=== PATIENT | female | born 1940 | race Caucasian/White ===

== ENCOUNTER → 2017-07-13 17:09 | Outpatient (CLI) | payer MEDICARE, SELFPAY ==
--- NOTE | 2017-07-13 17:30 | RAD_ITS ---
STUDY: X-RAY - ABDOMEN/PELVIS REASON FOR EXAM: Female, 77 years old. TECHNIQUE: 4 views COMPARISON: None. FINDINGS: There is a lumbar scoliosis with convexity to the right. Mild degenerative changes of the lumbosacral spine. A nonspecific gas pattern. No free intraperitoneal air and no small bowel obstruction. There also no abnormal calcifications. RAD/Abd Decub and/or Erect(Portabl IMPRESSION: Degenerative changes of the lumbosacral spine and a mild lumbar scoliosis with convexity to the right. No acute findings in the abdomen. Electronically Signed: James Kennedy, at 1:48 EDT Tel , Service support ,
== END ==
PROVIDERS: Family Provider Family Medicine; PCP Family Medicine; Visit Provider Family Medicine
DX: R14.0 Abdominal distension (gaseous) (principal)
CPT/HCPCS: 74019

== ENCOUNTER → 2017-07-14 14:13 | Outpatient (CLI) | payer MEDICARE, SELFPAY ==
--- NOTE | 2017-07-14 14:16 | CT_ITS ---
STUDY: CT ABDOMEN AND PELVIS WITH CONTRAST REASON FOR EXAM: Female, 77 years old. Abdominal distention worsening over last year history of left breast and uterine cancer history of radiation chemotherapy bladder suspension cholecystectomy appendectomy left mastectomy and a pacemaker. RADIATION DOSAGE (If Supplied By Facility): CTDIvol = ( 19.79 ) mGy, DLP = ( 1221.69 ) mGycm TECHNIQUE: Transaxial images were obtained from the dome of the diaphragm to the symphysis pubis with oral contrast. 100ml ml of Isovue 300 contrast was administered. Sagittal and coronal images were reconstructed. Individualized dose optimization techniques were used for this CT. COMPARISON: August 02, 2016 CT scan abdomen and pelvis FINDINGS: There is a well-circumscribed calcification in the left lower lobe compatible with old granulomatous disease. There partially visualized pacer leads. Normal liver. There are surgical clips in the gallbladder fossa consistent with a prior cholecystectomy. Normal spleen. Normal pancreas. Normal bilateral adrenal glands. Normal right kidney. Normal left kidney. Allowing for the presence of contrast is a mildly thickened appearance of the proximal stomach. There partially contrasted normal caliber versus small bowel. There is a decompress somewhat featureless appearance of the partially contrasted colon. There is trace diverticulosis without evidence of diverticulitis. There is a fatty infiltrated appearance of the rectal tissue. There is a low-lying appearance of the rectal tissue fat similar to prior study. There is a small focus of density within the pericecal fat measuring 1.6 x 1.2 cm stable since prior study which may represent a stable lymph node or scarring status post appendectomy. The appendix is not visualized. Aorta is partially calcified and mildly tortuous. Normal inferior vena cava. Normal retroperitoneum. Normal urinary bladder. There is a low-lying fat filled appearance of the perineum. The uterus is been removed. There is a low-lying appearance of the pelvic structures which is incompletely visualized on this study. There is a greater amount of fat bulging into the peritoneum surrounding the rectum than on prior study. There is a midline diastases/fatty inguinal hernia stable since prior study. There are diffuse degenerative changes of the visualized lumbar spine. There is multilevel disc space narrowing and neural foraminal narrowing. At L3-L4, L4-L5 there is a broad disc bulge severe neural foramina narrowing and severe central stenosis. At L5-S1 there is severe neural foraminal narrowing and moderate central stenosis. CT/Abdomen/Pelvis WITH Contrast IMPRESSION: Bowel obstruction. There is a low-lying appearance of the fat and rectum and the vagina within the perineum. Findings are suspicious for pelvic lipomatosis and probable pelvic floor laxity. Recommend direct clinical evaluation. Status post appendectomy cholecystectomy hysterectomy. Partially contrast filled stomach mildly thick-walled appearance of the proximal to make recommend consideration for follow-up of her GI small bowel follow-through and/or endoscopy. Evidence of old granulomatous disease. Electronically Signed: Nancy Hill MD at 16:59 EDT Tel , Service support ,
[2017-07-14 16:30] LABS: CREATININE FINGERSTICK 0.7 mg/dL (0.55-1.02)
== END ==
PROVIDERS: Family Provider Family Medicine; PCP Family Medicine; Visit Provider Family Medicine
DX: R14.0 Abdominal distension (gaseous) (principal)
CPT/HCPCS: 74177; Q9967

== ENCOUNTER → 2017-07-15 13:50 | Outpatient (CLI) | payer MEDICARE, SELFPAY ==
[2017-07-15 15:51] LABS: Absolute Lymphocyte Count 2.67 X10^3/ul (0.83-4.51); Absolute Neutrophil Count 3.6 X10^3/uL (2.0-7.7); Basophil# 0.02 X10^3/uL; Basophil% 0.3 % (0-1); Eosinophil# 0.07 X10^3/uL; Hematocrit 40.1 % (37-47); Hemoglobin 13.3 g/dl (12.0-15.0); Lymphocyte # 2.67 X10^3/ul (4.0); Lymphocyte % 38.5 % (19-41); Mean Corp Hgb Conc 33.2 g/gl (32-36); Mean Corpuscular Hgb 31.1 pg (27.0-32.0); Mean Corpuscular Volume 93.7 fL (81-99); Mean Platelet Vol. 9.6 fl (6.2-12.0); Monocyte# 0.62 X10^3/uL; Monocyte% 8.9 % (0-10); Neutrophil # 3.55 X10^3/uL (2.7-7.7); Neutrophil % 51.2 % (47-70); Platelet Count 291 K/mm3 (150-450); RBC Distribution Width CV 12.7 % (11.6-14.6); RBC Distribution Width SD 42.6 fl (35.1-43.9); Red Blood Count 4.28 M/mm3 (4.2-5.4); White Blood Count 6.9 K/mm3 (4.4-11.0)
[2017-07-15 15:52] LABS: POSITIVE COUNT NO; POSITIVE DIFFERENTIAL NO; POSITIVE MORPHOLOGY NO
[2017-07-15 16:05] LABS: AST(SGOT) 13 U/L (15-37); Alanine Aminotransfer ALT/SGPT 19 U/L (13-56); Albumin, Serum 3.4 g/dL (3.2-5.0); Alkaline Phosphatase 52 U/L (45-117); Anion Gap 8 (5-15); BUN 14 mg/dL (7-18); BUN/Creat Ratio 16.1 RATIO (10-20); Calcium,Total 8.5 mg/dL (8.5-10.1); Chloride 109 mmol/L (98-107); Creatinine, Serum 0.87 mg/dL (0.55-1.02); EST Glomerular Filtration Rate 67 mL/min (>60); Est Glom Filt Rate - Afr Amer 81 mL/min (>60); Globulin 3.3 g/dL (2.2-4.2); Glucose 100 mg/dL (74-106); Potassium 3.5 mmol/L (3.5-5.1); Protein, Total 6.7 g/dL (6.4-8.2); Sodium Level 143 mmol/L (136-145); T4 Free Direct 0.93 ng/dL (0.76-1.46); Thyroid Stim Hormone (TSH) 2.76 uIU/mL (0.358-3.74)
== END ==
PROVIDERS: Family Provider Family Medicine; PCP Family Medicine; Visit Provider Family Medicine
DX: R14.0 Abdominal distension (gaseous) (principal); E03.9 Hypothyroidism, unspecified
CPT/HCPCS: 36415; 80053; 84439; 84443; 85025

== ENCOUNTER 2017-08-11 06:55 | Day surgery (SDC) | payer MEDICARE, SELFPAY ==
--- NOTE | 2017-08-11 | IMM_PTH ---
PATIENT: DEVORA CHILDERS LOC: EN U#:[id number] AGE/SX: 77/F ROOM: RE08/11/[address]: Dr. Dash Fuller MD : 1940 BED: DIS: 08/11/2017 SPEC #: [id number] RECD: 08/12/17 11:16 STATUS: FRANCES REUzma #: [id number] KATHARINA: 08/11/17 00:[address]: Dash Fuller DEPT: IMMUNOHISTOCHEMISTRY RECD BY: Darlene Silvestre ENTERED: 08/12/17 11:17 SP TYPE: IMMUNO OTHR DR: Dr. Mo Jameson MD Tissues: Stomach, NOS Procedures: H Pylori (initial) PHYSICIAN & INSTITUTION [place] [address] SPECIMEN INFORMATION: Tissue Source: Antrum biopsy Clinical Info: Gastric wall thickening Specimen Number: [id number] CPT code: 58646 METHODOLOGY: Deparaffinized sections of prefer/formalin-fixed tissue or PAP/DQ stained slides are incubated with monoclonal/polyclonal antibodies/oligonucleotide probes. Localization is made via biotin free immunoperoxidase method. Appropriate controls are performed and reacted as expected. Results on target cell population are indicated in the following table: RESULTS: ANTIBODY / CLONE RESULT H Pylori (polyclonal) negative These tests were developed and their performance characteristics determined by [facility]. They may not have been cleared or approved by the U.S. Food and Drug Administration. The FDA has determined that such clearance or approval is not necessary. INTERPRETATION: Antrum, biopsy: Negative for Helicobacter pylori organisms. AM:kwasi 08/14/17
--- NOTE | 2017-08-11 | EGD_PTH ---
PATIENT: DEVORA CHILDERS LOC: EN U#:[id number] AGE/SX: 77/F ROOM: RE08/11/[address]: Dr. Dash Fuller MD : 1940 BED: DIS: 08/11/2017 SPEC #: [id number] RECD: 08/11/17 10:32 STATUS: FRANCES RICHARD #: [id number] KATHARINA: 08/11/17 00:[address]: Dash Fuller DEPT: SURGICAL PATHOLOGY RECD BY: Rohit Orosco ENTERED: 08/11/17 13:00 SP TYPE: EGD BIOPSY OTHR DR: Dr. Mo Jameson MD Tissues: Gastric mucous membrane Procedures: Surgery Specimen Level IV HEADER OPERATION: EGD PRE-OP DIAGNOSIS: Gastric wall thickening TISSUE SUBMITTED: Antrum biopsy path and H. pylori MICROSCOPIC DIAGNOSIS Gastric antrum, biopsy: Mild chronic gastritis. See comment. AM:kwasi 5/23/18 COMMENT The results of immunohistochemistry for Helicobacter pylori will be reported separately ([id number]). MICROSCOPIC DESCRIPTION Slides are reviewed. GROSS DESCRIPTION Received in fixative is one container labeled with the patient's name and designated antrum biopsy. The specimen consists of two irregular fragments of light kauffman soft tissue that in aggregate measure 0.5 x 0.2 x 0.1 cm. The specimen is totally submitted in one cassette. / SJ:rg 08/11/17 TC:3 CPT: 10891
[2017-08-11 07:17] VITALS: BP 126/74; PULSE 73; RESP 16; TEMP 36.1; O2SAT 94; BMI 35.8
[2017-08-11 08:25] VITALS: BP 118/71; BP 126/74; PULSE 70; RESP 16; TEMP 36.3; O2SAT 93
--- NOTE | 2017-08-11 08:26 | OP.PCM_ITS ---
Problem List (1) Gastric wall thickening Status: Acute Report of Operation Date of Procedure: 08/11/17 Pre-Operative Diagnosis: Thickened stomach wall on CAT scan Post-Operative Diagnosis: Hiatal hernia Surgery/Procedure Performed:: EGD with biopsy Specimen's removed: Antrum biopsy Description of Procedure: The major risks and benefits associated with the procedure were explained to the patient in detail. The patient verbalized understanding and agreement with the same. The patient was then placed in the left lateral decubitus position. IV sedation was started by anesthesia. The endoscope was then advanced under direct visualization over the tongue, into the esophagus , stomach and duodenum. It was slowly withdrawn and the mucosa was carefully evaluated. Duodenal mucosal abnormalities were not visualized. Antegrade and retrograde views of the stomach revealed normal gastric folds in the proximal stomach with no thickening. The patient did have a moderate sized hiatal hernia. A biopsy of the antrum was performed with cold forceps. The scope was then withdrawn through the GE junction and careful examination did not demonstrate any mucosal abnormalities. No evidence of Sim's esophagus was apparent. Careful examination of the remainder of the esophagus was normal. The scope was then withdrawn from the patient and the procedure terminated. It was well tolerated and there were no immediate complications.
[2017-08-11 08:30] VITALS: BP 120/78; BP 126/74; PULSE 70; RESP 16; O2SAT 90
[2017-08-11 08:35] VITALS: BP 118/57; BP 126/74; PULSE 70; RESP 16; O2SAT 93
[2017-08-11 08:40] VITALS: BP 118/79; BP 126/74; PULSE 70; RESP 16; TEMP 35.9; O2SAT 92
[2017-08-11 08:57] VITALS: BP 126/74
== END 2017-08-11 08:59 | disposition home or self-care (01) ==
LOC: EN 06:56 → AC 06:58
PROVIDERS: Family Provider Family Medicine; PCP Family Medicine; Visit Provider Surgery
PROC: 0DJ08ZZ Inspection of Upper Intestinal Tract, Via Natural or Artificial Opening Endoscopic (ICD-10-PCS; CPT 43235; principal; 2017-08-11 07:55)
DX: K29.50 Unspecified chronic gastritis without bleeding (principal); K31.89 Other diseases of stomach and duodenum; K44.9 Diaphragmatic hernia without obstruction or gangrene; E03.9 Hypothyroidism, unspecified; E78.5 Hyperlipidemia, unspecified; F32.9 Major depressive disorder, single episode, unspecified; I50.9 Heart failure, unspecified; Z86.73 Personal history of transient ischemic attack (TIA), and cerebral infarction without residual deficits; Z95.0 Presence of cardiac pacemaker; Z85.3 Personal history of malignant neoplasm of breast
CPT/HCPCS: 43239; 88305; 88342; J7120

== ENCOUNTER → 2017-10-01 15:42 | Outpatient (CLI) | payer MEDICARE, SELFPAY ==
[2017-10-01 16:03] LABS: Absolute Lymphocyte Count 2.66 X10^3/ul (0.83-4.51); Absolute Neutrophil Count 5.5 X10^3/uL (2.0-7.7); Basophil# 0.02 X10^3/uL; Basophil% 0.2 % (0-1); Eosinophil# 0.08 X10^3/uL; Eosinophils% 0.9 % (0-5); Hematocrit 43.2 % (37-47); Hemoglobin 14.4 g/dl (12.0-15.0); Lymphocyte # 2.66 X10^3/ul (4.0); Lymphocyte % 28.8 % (19-41); Mean Corp Hgb Conc 33.3 g/gl (32-36); Mean Corpuscular Hgb 31.2 pg (27.0-32.0); Mean Corpuscular Volume 93.5 fL (81-99); Monocyte# 0.99 X10^3/uL; Monocyte% 10.7 % (0-10); Neutrophil # 5.47 X10^3/uL (2.7-7.7); Neutrophil % 59.1 % (47-70); Platelet Count 289 K/mm3 (150-450); RBC Distribution Width CV 12.1 % (11.6-14.6); RBC Distribution Width SD 40.9 fl (35.1-43.9); Red Blood Count 4.62 M/mm3 (4.2-5.4); White Blood Count 9.3 K/mm3 (4.4-11.0)
[2017-10-01 16:12] LABS: POSITIVE COUNT NO; POSITIVE DIFFERENTIAL NO; POSITIVE MORPHOLOGY NO
[2017-10-01 16:56] LABS: CRP 3.45 mg/L (0.0-3.0)
[2017-10-01 17:41] LABS: Erythrocyte Sedimentation Rate 17 mm/hr (0-30)
== END ==
PROVIDERS: Family Provider Family Medicine; PCP Family Medicine; Visit Provider Specialist
DX: T84.093A Other mechanical complication of internal left knee prosthesis, initial encounter (principal)
CPT/HCPCS: 36415; 85025; 85652; 86140

== ENCOUNTER 2017-10-07 20:58 | Emergency (ER) | payer MEDICARE, SELFPAY ==
[2017-10-07 20:58] VITALS: BP 117/82; PULSE 74; RESP 15; TEMP 36.8; O2SAT 98; BMI 37.3
--- NOTE | 2017-10-07 21:37 | CT_ITS ---
STUDY: CT BRAIN WITHOUT CONTRAST REASON FOR EXAM: Female, 77 years old. INHALATION OF A BUG SONIA RADIATION DOSAGE (If Supplied By Facility): CTDIvol = ( 44.99 ) mGy, DLP = ( 745.49 ) mGycm TECHNIQUE: Transaxial CT imaging of the brain was performed without administration of intravenous contrast material. COMPARISON: April 03, 2016 FINDINGS: Normal soft tissue structures. Normal calvarium. There are calcifications noted in the distal vertebral arteries. There are calcifications noted in the cavernous carotid arteries. This is consistent for atherosclerotic disease. There is mild cerebral atrophy with widening of the extra-axial spaces and ventricular dilatation. There are areas of decreased attenuation within the white matter tracts of the supratentorial brain, consistent with microvascular disease changes. Normal basal ganglia and thalami. Normal brainstem. There is mild cerebellar atrophy. There is no intracranial hemorrhage. There are no findings of an acute ischemic infarction. Normal visualized paranasal sinuses. CT/Brain/Head without Contrast IMPRESSION: Chronic involutional changes of the brain. There are no acute findings. Electronically Signed: Ubaldo Chávez MD at 22:26 EDT , Service support ,
--- NOTE | 2017-10-07 21:38 | EKG12_ITS ---
Test Reason : REPEAT Blood Pressure : / mmHG Vent. Rate : 070 BPM Atrial Rate : 066 BPM P-R Int : 242 ms QRS Dur : 098 ms QT Int : 440 ms P-R-T Axes : 000 -28 054 degrees QTc Int : 475 ms Atrial-paced rhythm with prolonged AV conduction Low voltage QRS Septal infarct , age undetermined Inferior infarct , age undetermined Abnormal ECG Confirmed by JERAMIE MOLNIA, HEMA ([id number]), managing editor TREVOR THOMAS ([id number]) on 10/09/2017 1:16:00 PM Referred By: Royer Lozano Confirmed By:HEMA BOBO MD
--- NOTE | 2017-10-07 21:50 | RAD_ITS ---
STUDY: X-RAY CHEST REASON FOR EXAM: Female, 77 years old. POSSIBLE INHALATION OF BUG BOMB, APHAGIA AND SLURRED SPEECH TECHNIQUE: Single frontal view of the chest. COMPARISON: January 05, 2017 FINDINGS: Chronic appearing increased interstitial lung markings. There is a right sided pacemaker batterypack. There is no demonstrated pleural abnormality. Enlarged heart size. Normal mediastinum and mirlande. Normal visualized pulmonary arteries. There is atherosclerotic calcification of the aortic arch with tortuosity. There are diffuse degenerative changes of the visualized thoracic spine. There is degenerative osteoarthritis of the bilateral shoulders. There is no demonstrated abnormality of the visualized soft tissue structures of the upper abdomen. RAD/Chest 1 View (Portable) IMPRESSION: There are no acute findings. Electronically Signed: Ubaldo Chávez MD at 22:10 EDT , Service support ,
[2017-10-07 22:02] LABS: Absolute Lymphocyte Count 2.51 X10^3/ul (0.83-4.51); Absolute Neutrophil Count 4.2 X10^3/uL (2.0-7.7); Basophil# 0.02 X10^3/uL; Basophil% 0.3 % (0-1); Eosinophil# 0.08 X10^3/uL; Hematocrit 40.1 % (37-47); Lymphocyte # 2.51 X10^3/ul (4.0); Lymphocyte % 32.4 % (19-41); Mean Corp Hgb Conc 32.4 g/gl (32-36); Mean Corpuscular Hgb 30.1 pg (27.0-32.0); Mean Corpuscular Volume 92.8 fL (81-99); Monocyte# 0.91 X10^3/uL; Monocyte% 11.8 % (0-10); Neutrophil # 4.22 X10^3/uL (2.7-7.7); Neutrophil % 54.5 % (47-70); POSITIVE COUNT NO; POSITIVE DIFFERENTIAL NO; POSITIVE MORPHOLOGY NO; Platelet Count 241 K/mm3 (150-450); RBC Distribution Width CV 12.2 % (11.6-14.6); RBC Distribution Width SD 41.7 fl (35.1-43.9); Red Blood Count 4.32 M/mm3 (4.2-5.4); White Blood Count 7.7 K/mm3 (4.4-11.0)
[2017-10-07] MEDS: 0.9% Normal Saline 1,000 ML 150 ML IV (22:02)
[2017-10-07 22:20] LABS: Anion Gap 6 (5-15); BUN 10 mg/dL (7-18); BUN/Creat Ratio 10.3 RATIO (10-20); Calcium,Total 8.6 mg/dL (8.5-10.1); Chloride 105 mmol/L (98-107); Creatinine, Serum 0.98 mg/dL (0.55-1.02); EST Glomerular Filtration Rate 59 mL/min (>60); Est Glom Filt Rate - Afr Amer 71 mL/min (>60); Estimated Creatinine Clearance 34.53 ml/min; Glucose 110 mg/dL (74-106); Potassium 3.5 mmol/L (3.5-5.1); Sodium Level 143 mmol/L (136-145)
[2017-10-07 23:26] VITALS: BP 166/92; PULSE 70; RESP 16; O2SAT 94
--- NOTE | 2017-10-07 23:28 | EKG12_ITS ---
Test Reason : SOB Blood Pressure : / mmHG Vent. Rate : 069 BPM Atrial Rate : 069 BPM P-R Int : 178 ms QRS Dur : 098 ms QT Int : 402 ms P-R-T Axes : 013 -42 054 degrees QTc Int : 430 ms Atrial-paced rhythm Left axis deviation Low voltage QRS Inferior infarct , age undetermined Abnormal ECG Confirmed by JERAMIE MOLINA, HEMA ([id number]), society editor TREVOR THOMAS ([id number]) on 10/09/2017 1:16:32 PM Referred By: Royer Lozano Confirmed By:HEMA BOBO MD
--- NOTE | 2017-10-07 23:28 | CT_ITS ---
STUDY: CTA NECK WITH CONTRAST REASON FOR EXAM: Female, 77 years old. CVA. RADIATION DOSAGE (If Supplied By Facility): CTDIvol = ( 17.15 ) mGy, DLP = ( 583.04 ) mGycm TECHNIQUE: CT angiography with multi-detector data acquisition was performed from the aortic arch to the skull base following intravenous administration of 75 ml of Isovue 370 contrast. MIP images were reconstructed from the axial data set. Post-processing of the angiographic images was performed, with multiplanar reformation and 3D reconstruction. Individualized dose optimization techniques were used for this CT. COMPARISON: None. FINDINGS: AORTIC ARCH: Normal visualized aortic arch. Normal origins of the brachiocephalic, left common carotid, and left subclavian arteries. RIGHT CAROTID ARTERIES: Normal right common carotid artery (CCA). Normal right common carotid bulb. Normal origin of the right internal carotid (ICA) artery without a hemodynamically significant stenosis. There is atherosclerotic tortuous elongation of the cervical portion of the right internal carotid artery. Normal origin of the right external carotid artery (ECA). LEFT CAROTID ARTERIES: There is atherosclerotic tortuous elongation of the left common carotid artery. Normal left common carotid bulb. Normal origin of the left internal carotid (ICA) artery without a hemodynamically significant stenosis. There is atherosclerotic tortuous elongation of the cervical portion of the left internal carotid artery. Normal origin of the left external carotid artery (ECA). VERTEBRAL ARTERIES: Normal bilateral vertebral arteries. Normal bilateral parotid glands. Normal bilateral network cabler spaces. Normal bilateral parapharyngeal spaces. Normal bilateral carotid spaces. Normal bilateral sublingual and submandibular glands and spaces. Normal visualized nasopharynx. Normal retropharyngeal space. Normal perivertebral space. Normal visualized bilateral faucial tonsils. The visualized tongue, tongue base and oropharynx are normal. The visualized cervical lymph nodes (levels I-) are within normal size limits, and maintain normal morphology. There is no demonstrated solid or cystic mass lesion. There is no abnormal contrast enhancement. Normal epiglottis, bilateral vallecula and hypopharynx. The pre-epiglottic and paraglottic adipose spaces are normal. Normal visualized bilateral piriform sinuses, aryepiglottic folds, vocal cords, and arytenoid-cricoid articulations. Normal subglottic trachea. Normal bilateral lobes of the thyroid gland. Normal visualized pulmonary apices. Normal visualized paranasal sinuses. The bones appear osteopenic. The vertebral bodies have generally normal height and alignment. There are mild multilevel degenerative changes. CT/CTA Neck W/WO Contrast IMPRESSION: No CTA evidence for hemodynamically severe stenosis, thrombosis or dissection. Electronically Signed: Cassandra Damon MD at 1:13 EDT , Service support ,
--- NOTE | 2017-10-07 23:28 | CT_ITS ---
STUDY: CTA OF THE BRAIN REASON FOR EXAM: Female, 77 years old. CVA. RADIATION DOSAGE (If Supplied By Facility): CTDIvol = ( 17.15 ) mGy, DLP = ( 583.04 ) mGycm TECHNIQUE: CT angiography was performed with a multi-detector CT scanner. Data acquisition was obtained from the skull base through the vertex following intravenous administration of 75 ml of Isovue 370. MIP images were reconstructed from the axial data set. Post-processing of the angiographic images was performed, with multiplanar reformation and 3D reconstruction. Individualized dose optimization techniques were used for this CT. COMPARISON: CT of the head dated October 07, 2017. FINDINGS: Normal bilateral petrous carotid arteries. There is ectatic elongation and tortuosity of the right cavernous carotid artery without a demonstrated hemodynamically significant stenosis. There is ectatic elongation and tortuosity of the left cavernous carotid artery without a demonstrated hemodynamically significant stenosis. Normal right A1 segments of the anterior cerebral artery. Normal left A1 segments of the anterior cerebral artery. Normal intact anterior communicating artery (ACOM). Normal bilateral A2 segments of the anterior cerebral arteries. Normal right M1 and M2 segments of the middle cerebral arteries, with a normal M1 bifurcation. Normal left M1 and M2 segments of the middle cerebral arteries, with a normal M1 bifurcation. Normal right posterior communicating artery (PCOM). Normal left posterior communicating artery (PCOM). Normal bilateral vertebral arteries. Normal basilar artery with a normal basilar bifurcation. The visualized bilateral superior cerebellar (SCA) arteries are normal. Normal bilateral P1, P2 and visualized P3 segments of the posterior cerebral arteries. There is no demonstrated aneurysm of the mary's igloo of [place]. There is no demonstrated abnormality of the visualized brain. CT/CTA Head W/WO Contrast IMPRESSION: No CTA evidence for acute thrombosis, hemodynamically significant stenosis or aneurysm. Electronically Signed: Cassandra Damon MD at 1:36 EDT , Service support ,
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
[2017-10-08 01:06] VITALS: BP 149/90; PULSE 70; RESP 16
--- NOTE | 2017-10-08 01:40 | ED.DEP ---
ED Disposition - Plan for ED Patient: Disposition: Home or Assisted Living Chief Complaint: Neuro S/Sx Referrals: Mo Jameson MD [Primary Care Provider] - 1 Week Additional Instructions: Your workup tonight did not reveal any specific abnormalities. Return for worsening symptoms or if any other concerns arise. Follow-up with your doctor.
[2017-10-08 01:54] VITALS: RESP 18; O2SAT 95
== END 2017-10-08 01:55 | disposition home or self-care (01) ==
PROVIDERS: Emergency Provider Emergency Medicine; Family Provider Family Medicine; PCP Family Medicine
DX: R47.81 Slurred speech (principal); I50.9 Heart failure, unspecified; E78.00 Pure hypercholesterolemia, unspecified; F32.9 Major depressive disorder, single episode, unspecified; Z85.3 Personal history of malignant neoplasm of breast; Z95.0 Presence of cardiac pacemaker; Z79.01 Long term (current) use of anticoagulants
CPT/HCPCS: 70450; 70496; 70498; 71045; 80048; 84484; 85025; 93005; 96360; 96361; 99285; Q9967

== ENCOUNTER → 2017-11-05 12:26 | Outpatient (CLI) | payer MEDICARE, SELFPAY | PROVIDERS: Family Provider Family Medicine; PCP Family Medicine; Visit Provider Family Medicine | DX: M54.5 Low back pain (principal); M54.6 Pain in thoracic spine | CPT/HCPCS: 72070; 72110 ==

== ENCOUNTER → 2017-11-09 15:49 | Outpatient (CLI) | payer MEDICARE, SELFPAY | PROVIDERS: Family Provider Family Medicine; PCP Family Medicine; Visit Provider Nurse Practitioner Family | DX: M79.662 Pain in left lower leg (principal) | CPT/HCPCS: 93971 ==

== ENCOUNTER → 2017-11-30 12:39 | Outpatient (CLI) | payer MEDICARE, SELFPAY ==
[2017-10-23 15:26] VITALS: BP 107/63; PULSE 70; RESP 18; TEMP 36.8; BMI 38.9
[2017-10-23 17:10] LABS: Thyroid Stim Hormone (TSH) 1.92 uIU/mL (0.358-3.74)
--- NOTE | 2017-10-27 14:19 | HP.PCM_ITS ---
History and Physical DATE OF SURGERY: 11/04/2017 SCHEDULED PROCEDURE: Revision left total knee replacement HISTORY OF PRESENT ILLNESS: This is a 77-year-old female who has been having ongoing pain in her left knee since 2014. Pain is been intermittent. Pain can reach as high as a 7/10. Patient had a previous left total knee arthroplasty which was done approximately 10 years ago in [place]. Patient denied any trauma or injury. Patient does report pain with going up and down stairs, walking any amount of distance. Patient does report instability in the left knee and has had multiple falls due to the left knee instability. Patient states the pain is increased when the knee gives out. Patient states she has difficult time with activities of daily living including housework. She feels unsafe cleaning the house and standing for long periods. Patient has tried conservative measures consisting of rest, ice, heat, and elevation with minimal relief. Patient has tried physical therapy and home exercises with no relief in symptoms. Patient has tried oral medications with no relief in symptoms. Patient currently denies any chest pain, shortness of breath, fevers chills, recent infections. Patient has a medical history pertinent for previous pacemaker placement 2 years ago, previous blood clot and pulmonary embolism in 2016, previous breast cancer, and seizure disorder. We are obtaining surgical clearance from patient's client insights consultant Dr. Amado and a primary care physician Dr. Mo Jameson. REVIEW OF SYSTEMS: ROS: Const: Reports vision problems and weight change, but denies anorexia, change in appetite, fever and hard of hearing. CV: Reports irregular heartbeat, but denies chest pain, heart murmur and peripheral vascular disease. Resp: Denies asthma, cough, pneumonia, sleep apnea, SOB, tuberculosis and wheezing. GI: Reports difficulty swallowing, but denies constipation, diarrhea, heartburn , nausea, bloody stools and vomiting. : Urinary: denies incontinence. Musculo: Denies leg swelling, limp, trouble walking and weakness. Skin: Denies Raynaud's, history of shingles and tattoo. Neuro: Reports difficulty with balance but denies ambulatory dysfunction, dizziness, numbness/tingling and tremor. Psych: Reports depression and stress, but denies anxiety, insomnia and mental illness. Americo/Lymph: Reports bleeding/bruising tendency, but denies anemia and past transfusion. Reviewed and updated. PAST MEDICAL HISTORY: PMH: Medical Problems: Arthritis, Pacemaker, Thyroid Disease, Seizure Disorder, Cancer, Hypercholesterolemia, Depression, Previous blood clot and Pulmonary Embolism 2016 Accidents: Fracture - RT ANKLE YEARS AGO LT SHOULDER 2009 Surgical Hx: Hernia Repair, Hysterectomy, Mastectomy, RT TKR, LT TKR, Pacemaker Replaced Anesthesia Complications: None Assistive Devices: Glasses, Dentures Reviewed and updated. SOCIAL HISTORY: SH: Marital: .Occupation: Retired.Work Status: Retired.Hand Dominance: Right- handed. Personal Habits: Cigarette Use: Never Smoked Cigarettes.Alcohol: Denies use.Drug Use: Denies Use.Enjoy Exercising: Never Exercises. Reviewed, no changes. VITALS: Ht: 58.5 Wt: 189lb Wt k.730 BMI: 38.8 BP: 108/74 Pulse: 69 Resp: 18 T: 97.6 T: 36.4C ALLERGIES: Penicillin MEDICATIONS: Levetiracetam 500 mg 3 tabs PO qam and 3 tabs qpm, Eliquis 5 mg 2po qday, Bupropion HCL ER (SR) 150 mg 1po qday, Quetiapine Fumarate 400 mg 1po qhs, Bupropion HCL ER (XL) 300 mg 1po qday, Mucinex 600 mg 2po qday, Cod Liver Oil 2po qday, Benzonatate 100 mg take 1 capsule take as directed as needed for cough for 10 days, Tizanidine HCL 4 mg 1/2 to 1 Tablet every 8 hours as needed for muscle pain or cramp, Simvastatin 20 mg take 1 tablet daily, Naltrexone HCL 50 mg TAKE 1 TABLET DAILY to help change behavior, Levothyroxine Sodium 50 mcg take 1 tablet by mouth daily PRE-OP EXAM: General appearance:NORMAL Other: Eyes: Conjunctivae and lids: NORMAL Pupils: ERR Ears, Nose, Mouth, and Throat: NORMAL Other: Inspection of lips, teeth and gums: NORMAL Other: Neck: Examination of neck: no masses noted. Respiratory: Assessment of respiratory effort: NORMAL Other: Auscultation of lungs: clear to auscultation no wheezes, rhonchi or rales. Cardiovascular: Auscultation of heart: regular rate and rhythm, no murmurs, gallops or rubs. Exam of carotid arteries: NORMAL Other: Gastrointestinal: Exam of abdomen: soft, nontender, nondistended bowel sounds present. PHYSICAL EXAMINATION: Patient walks with an antalgic gait. Previous incision is well-healed without erythema or signs of infection. Patient has significant translation with anterior and posterior drawer testing. Range of motion is 0 of extension to 120 of flexion with crepitus. Patient has positive sag sign with 90 flexion of the knee which is corrected with attempted extension. Sensations intact to light touch. IMAGING STUDIES: X-rays of the left knee reveals a well fixed left total hip replacement with press-fit cruciate retaining implants. There is significant posterior sag on the lateral view and subluxation of the joint. IMPRESSION: 1. Painful left total knee arthroplasty 2. Previous pacemaker 2 years ago 3. Seizure disorder 4. History of blood clot and pulmonary embolism in 2016 5. Previous breast cancer with previous mastectomy 6. Hypercholesterolemia 7. Depression 8. Thyroid disease PLAN: Dr. Lozano did discuss and review with the patient all treatment options including surgical versus nonsurgical options. Patient does wish to proceed with the above-stated procedure. Potential risks, benefits, and complications of the procedure were discussed in detail including but not limited to , infection, nerve and blood vessel damage, persistent pain, numbness, tingling, paresthesias, blood clot, pulmonary embolism, and requirement for possible further surgery. The patient expressed full understanding and has no further questions for the doctor. Patient does agree to proceed with the above-stated procedure and has signed the surgery consent form. We are obtaining surgical clearance from patient's primary care physician and client insights consultant. Patient is currently on our request and we will stop with recommendations from prescribing physician. ___ I have re-examined the patient. There are no clinical changes since date of exam. ___ See progress notes for changes. ___ Dictated on admission Date: Time: Signature:
== END ==
PROVIDERS: Anesthesiology; Family Provider Family Medicine; PCP Family Medicine; Visit Provider Specialist
DX: Z01.818 Encounter for other preprocedural examination (principal)
CPT/HCPCS: 84443; 87081

== ENCOUNTER → 2018-02-03 10:13 | Outpatient (CLI) | payer MEDICARE, SELFPAY ==
--- NOTE | 2018-02-03 10:18 | NM_ITS ---
CLINICAL: 77-year-old female with reported history of bilateral lower extremity, pelvic pain. WHOLE BODY 99m Tc MDP RADIONUCLIDE BONE SCINTIGRAPHY COMPARISON: None available FINDINGS: Following the intravenous administration of 27.2 mCi of 99m Tc MDP, whole body bone images reveal: 1. Relatively intense increased radiopharmaceutical concentration is defined in the mid cervical spine posteriorly on the left, focally apparent in the glenohumeral, sternoclavicular and acromioclavicular compartments of both shoulders, the left wrist, the sixth-12th thoracic vertebra posteriorly on the left and right, fourth-fifth lumbar vertebra, right posterior sacrum, bilateral midfoot. 2. Facilitated tracer concentration is identified in the bilateral medial femoral, lateral tibial, right lateral femoral components of the presumably painful bilateral knee prostheses. 3. The remaining skeletal structures are scintigraphically unremarkable with normal-appearing renal images and urinary bladder activity identified. An increase in uptake is identified in the bilateral lacrimal bones, left maxillary, right mandible and inter-orbital aspect of the calvarium consistent with periostitis. NM/Bone Scan Multiple Areas IMPRESSION: 1. The increase in radiopharmaceutical concentration identified in the cervical, thoracic and lumbar spine, sacrum, bilateral shoulders, right-left midfoot is most consistent with degenerative arthritis. Plain film radiography correlation may be of benefit in the region of the cervical spine. 2. Increased tracer uptake visualized in the femoral and tibial components of the apparent symptomatic right and left knee prostheses may represent the presence of loosening. The specificity of this finding is enhanced in the setting of operative intervention > 2 years prior to the current presentation. If an infectious etiology is a diagnostic consideration, correlation with labeled leukocyte imaging is recommended. Electronically Signed: Terrence Bazzi DO at 10:46 EST Tel , Service support ,
== END ==
PROVIDERS: Family Provider Family Medicine; PCP Family Medicine; Referring Provider Family Medicine; Visit Provider Family Medicine
DX: M79.605 Pain in left leg (principal); Z85.3 Personal history of malignant neoplasm of breast; Z85.42 Personal history of malignant neoplasm of other parts of uterus
CPT/HCPCS: 78305

== ENCOUNTER → 2018-02-05 13:43 | Outpatient (CLI) | payer MEDICARE, SELFPAY ==
--- NOTE | 2018-02-05 13:47 | RAD_ITS ---
STUDY: X-RAY - UNILATERAL RIBS ( LEFT ) WITH CHEST REASON FOR EXAM: Female, 77 years old. Fall on side of bathtub, left rib pain/contusion. TECHNIQUE - RIBS: 2 view(s) of the ribs. TECHNIQUE - CHEST: Single frontal view of the chest. COMPARISON: None. FINDINGS - RIBS: Detailed left ribs is partially obscured in some views by the overlapping components of a pacemaker. Slight deformities of the lateral aspect of the left fifth rib may be summation artifact or old healed fracture. There is no demonstrated acute fracture.. FINDINGS - CHEST: There are bilateral dual lead cardiac pacemakers present. On the right, the generator projects over the mid chest, its leads passing from the right subclavian vein to the right atrium and ventricle. On the left, the generator is in the low anterior chest wall at the medial margin of the breast, its leads passing from the left subclavian to the right atrium and ventricle as well. The lungs are clear, although incompletely expanded. There is no demonstrated pleural abnormality. Normal size heart. Normal mediastinum and mirlande. Normal visualized pulmonary arteries. There is atherosclerotic calcification of the aortic arch with mild tortuosity of the descending thoracic aorta. There are degenerative changes of the visualized thoracic spine. Normal visualized ribs, clavicles, and shoulders. There is no demonstrated abnormality of the visualized soft tissue structures of the upper abdomen. RAD/Ribs Uni Min 3V w/PA Chest IMPRESSION: RIBS: Old healed fracture deformity versus summation artifact of the lateral left fifth rib. CHEST: 1. Bilateral dual lead cardiac pacemakers present. 2. No acute cardiopulmonary disease. Electronically Signed: Gumaro Smith MD at 14:46 EST , Service support ,
== END ==
PROVIDERS: Family Provider Family Medicine; PCP Family Medicine; Referring Provider Family Medicine; Visit Provider Family Medicine
DX: S20.212A Contusion of left front wall of thorax, initial encounter (principal)
CPT/HCPCS: 71101

== ENCOUNTER → 2018-02-22 16:46 | Outpatient (CLI) | payer MEDICARE, SELFPAY ==
[2017-10-23 15:26] VITALS: BMI 38.9
--- NOTE | 2018-02-22 16:48 | RAD_ITS ---
STUDY: X-RAY CHEST REASON FOR EXAM: Female, 77 years old. Left-sided chest pain and bruising TECHNIQUE: PA and lateral views of the chest. COMPARISON: 10/07/2017 FINDINGS: Bilateral pacemaker is in satisfactory position The lungs are clear and expanded. There is no demonstrated pleural abnormality. Normal size heart. Normal mediastinum and mirlande. Normal visualized pulmonary arteries. Normal visualized aortic arch and descending thoracic aorta. Normal visualized thoracic spine. Normal visualized ribs, clavicles, and shoulders. There is no demonstrated abnormality of the visualized soft tissue structures of the upper abdomen. RAD/Chest PA and Lateral IMPRESSION: Normal x-ray examination of the chest. Electronically Signed: Gumaro Jacob MD at 15:01 EST , Service support ,
--- NOTE | 2018-02-22 16:48 | RAD_ITS ---
STUDY: X-RAY - ABDOMEN/PELVIS REASON FOR EXAM: Female, 77 years old. Left-sided pain after a fall TECHNIQUE: AP supine and upright views of the abdomen and pelvis. 3 total views obtained COMPARISON: None. FINDINGS: Normal visualized lung bases. There is an unremarkable bowel gas pattern. There is no demonstrated free abdominal air. The visualized liver, spleen and kidneys are grossly normal in size and morphology. Normal soft tissue structures. There are diffuse degenerative changes of the visualized lumbar spine. RAD/Abd Inc Decub and/or Erect IMPRESSION: No acute findings Degenerative bony changes Electronically Signed: Gumaro Jacob MD at 15:02 EST , Service support ,
== END ==
PROVIDERS: Family Provider Family Medicine; PCP Family Medicine; Referring Provider Family Medicine; Visit Provider Family Medicine
DX: R10.12 Left upper quadrant pain (principal); S20.212S Contusion of left front wall of thorax, sequela
CPT/HCPCS: 71046; 74019

== ENCOUNTER 2018-06-04 16:00 | Outpatient (RCR) | payer MEDICARE, SELFPAY ==
--- NOTE | 2018-05-24 15:54 | HP.PTEVAL_ITS ---
Patient's Visit Information DEVORA CHILDERS is a 78 year old F referred to Physical Therapy by Mo Jameson MD with a diagnosis of LUMBAR AND GLUTEAL PAIN WITH RADIATION DOWN LEG AT NIGHT/AM.. Date of Evaluation: 05/24/18 Physical Therapist: Jie Somers PT, Cert MDT - Visit Plan Frequency: 2-3x /Week Duration: 4-6 Weeks Plan: AQUATIC THERAPY (PATIENT CAN NOT SWIM) FOR PAIN RELEIF, POSTURE CORRECTION/STRENGTHENING, INSTRUCTION IN APPROPRIATE BODY MECHANICS AND ACTIVITY MODIFICATIONS. DLS STARTING WITH A NEUTRAL SPINE PROGRESSING ROM TOLERATED. GABRIELA LE ROM, STRETCHING AND STRENGTHENING. HEP INSTRUCTION. - Subjective Findings: Work/Leisure: RETIRED. Disability: NO. Present symptoms: PATIENT REPORTS SHE HAS PAIN FROM HER WAIST DOWN L>R. GABRIELA LE NUMBNESS AND TINGLING. Present since: 7-8 MONTHS. Pain Scale: WORST 8/10, LEAST 6/10. Currently: 7/10. Commenced as a result of: NO APPARENT REASON. PATIENT REPORTS THE PAIN JUST WOKE HER UP ONE MORNING. Symptoms at onset: LEFT LE PAIN THAT FELT LIKE A ASTON HORSE. Worse: TWISTING, SOMETIMES SITTING, TURNING, LIFTING, SOMETIMES BENDING, TURNING OVER IN BED, WALKING. GROCERY SHOPPING, DOING THE DISHES, MAKING THE BED. Better: RECLINER, TIME - STANDING STILL UNTIL PAIN REDUCES AFTER IT HITS. Disturbed sleep: YES. Previous history/Previous treatment: PAIN MEDICINE - HELPS SOME. HEATING PAD - EASES IT SOME. NO BACK SURGERY. NO BACK INJECTIONS. PAIN MGMT CONSULT BUT PATIENT REPORTS SHE IS NOT GOING BACK. Coughing/sneezing/straining: NEGATIVE. Gait: PATIENT REPORTS PAIN WALKING AND STATES SHE FEELS TENSION IN HER LEGS LEFT > RIGHT. Difficulty initiating urinatin: NO. Accidents: NO. Unexplained weight loss: NO. Imaging: LUMBAR X-RAY OCT 2017: FINDINGS: Normal lumbar lordosis. There is mild dextrocurvature of the spine. There. is a normal alignment of the vertebrae. There is diffuse demineralization with multi-level endplate spondylosis. There is multi-level degenerative disc disease with multi-level d isc space. narrowing. Hypertrophic facet changes are seen. There is no acute. fracture. The soft tissue structures are unremarkable. RAD/L/S Spine Min 4 Views. IMPRESSION: Degenerative changes of the spine, as detailed above. THORACIC X-RAY: FINDINGS: Normal kyphosis of the thoracic spine. There is mild levocurvature within the thoracic spine. There is demineralization of the thoracic spine with endplate spondylosis. There is multilevel disc space narrowing of the. thoracic spine. A pacemaker projects over the right upper chest. Pacemaker leads also. project over the left chest. RAD/Thoracic Spine 2 Views. IMPRESSION: Degenerative changes. No acute bony abnormality. 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 HERNIA REPAIRS. GABRIELA TKR'S (X3 ON RIGHT). PLOF (Prior Level of Function): PATIENT REPORTS UNLIMITED ACITIVITY INCLUDING MOVING FUNITURE BEFORE ONSET OF THIS PAIN ABOUT 8 MONTHS AGO. - Objective Sitting/Standing Posture: POOR. Lordosis: REDUCED. Active Correction of posture: WORSE. Other Observations: INDEP GAIT INTO PT WITHOUT ANY ASSISTIVE DEVICES WITH DECREASED CADANCE, LIMP ON LLE, DECREASED GABRIELA STRIDE LENGTH AND NO LOB. Motor deficit: GABRIELA LE WEAKNESS LEFT > RIGHT. RIGHT HIP 4-/5, KNEE 4/5, ANKLE 5/5. LEFT HIP 3+/5, KNEE 4-/5, ANKLE 5/5. Sensory deficit: GABRIELA LE LIGHT TOUCH SENSATION APPEARS INTACT AND SYMMETRICAL. ROM deficit: GABRIELA LE'S WFL. Reflexes: NT. Dural Signs: POSITIVE GABRIELA LE'S LEFT > RIGHT. Lumbar mvmt loss: flex - MIN. ext - KIERAN. R SG - KIERAN. L SG - KIERAN. PATIENT HAS INCREASED C/O PAIN WITH LUMBAR ROM TESTING ALL PLANES (LEFT SG > RIGHT SG). Core strength: POOR. Palpation: PATIENT IS TENDER WITH LIGHT PALPATION OF THE LUMBAR SPINE REGION, AND GABRIELA HIPS LEFT > RIGHT. OTHER: PATIENT DENIES ANY FALLS SINCE DEC 2017. SHE REPORTS SHE HAS HAD HER RIGHT KNEE REPLACED 3 TIMES AND SHE NEVER KNOWS WHEN HER KNEE IS GOING TO GIVE OUT. SHE WILL CONSIDER USING CANE AGAIN NOW. - Goals Goal 1:: DECREASE C/O BACK AND GABRIELA LE SX'S. Goal Time Frame: 4-6 Weeks Goal 2:: IMPROVE LIFTING, WALKING, SITTING, STANDING, SLEEP, SOCIAL LIFE, TRAVEL ADN HOMEMAKING FUNCTION. Goal 3:: INSTRUCT IN PROPHYLAXIS Goal Time Frame: 4-6 Weeks - Rehabilitation Potential Rehabilitation Potential: Fair - Anticipated Interventions Patient/Client Instruction: Educate patient on: Condition, Plan of Care, Risk Factors, Benefits of Fitness Program For the Purpose of:: To improve self management Therapeutic Exercise to Include: Strength training, Body mechanics, Postural training, Flexibilty training, Gait and locomotor training, Dynamic Lumbar Stabilization For the Purpose of:: To decrease pain, To increase ROM, To improve muscle performance and motor function, To increase tolerance to activity/condition/position, To improve ability of physical actions for home/community/work/leisure, To improve gait and locomotor functions Thank you for the opportunity to evaluate your patient. For Medicare and Medicare HMO plans, please review the plan of care and approve it. It will need to be FAXED BACK to us at [phone] for Medicare purposes. For Medicare only, by signing this I certify the plan of care. Please let me know if there are questions or concerns regarding this plan of care. Physician Signature: Date:
--- NOTE | 2018-08-17 13:34 | HP.PTDCNRP_ITS ---
HP - Discharge Summary (1) - Patient Information DEVORA CHILDERS was seen in my office for initial evaluation on 05/24/18. The following Plan of Care was established for this patient: Initial Frequency: 2-3x /Week Initial Duration: 4-6 Weeks - Anticipated Interventions Patient/Client Instruction: Educate patient on: Condition, Plan of Care, Risk Factors, Benefits of Fitness Program For the Purpose of:: To improve self management Therapeutic Exercise to Include: Strength training, Body mechanics, Postural training, Flexibilty training, Gait and locomotor training, Dynamic Lumbar St abilization For the Purpose of:: To decrease pain, To increase ROM, To improve muscle performance and motor function, To increase tolerance to activity/condition/position, To improve ability of physical actions for home/community/work/leisure, To improve gait and locomotor functions This patient was last seen in our office 06/04/18. Pertinent comments regarding their Physical therapy will appear below: This patient has not returned to Physical Therapy and is appropriate to return to MD for further follow-up as needed. At this point I will be discontinuing this patient from physical therapy. I would be happy to see this patient again in the future if found appropriate by the physician. Thank you! Jie Somers, PT, Cert MDT
== END 2018-06-04 19:00 | disposition home or self-care (01) ==
LOC: PT 16:00
PROVIDERS: Family Provider Family Medicine; PCP Family Medicine; Referring Provider Family Medicine; Visit Provider Family Medicine
DX: M54.5 Low back pain (principal); M79.10 Myalgia, unspecified site
CPT/HCPCS: 97113; 97162

== ENCOUNTER → 2018-06-18 09:35 | Outpatient (CLI) | payer MEDICARE, SELFPAY ==
[2018-06-14 13:26] VITALS: BMI 36.9
--- NOTE | 2018-06-18 09:37 | RAD_ITS ---
STUDY: AIR-CONTRAST UPPER GI SERIES. REASON FOR EXAM: Female, 78 years old. Dysphagia. FLUOROSCOPY TIME (if supplied): (0:35) minutes/seconds. 17 images were obtained. TECHNIQUE: The patient ingested barium. Multiple images of the esophagus, stomach and duodenum were obtained. COMPARISON: Comparison is made with prior examination dated December 01, 2016. FINDINGS: The seventh of tertiary contractions of the mid and distal portion of the esophagus. This is unchanged. Small sliding hiatal hernia without gastroesophageal reflux. The remainder of the stomach and duodenum are unremarkable. RAD/Upper GI w/BA Swallow IMPRESSION: Tertiary contractions of the mid and distal esophagus. Small sliding hiatal hernia without gastroesophageal reflux. Electronically Signed: Ramón Hyde, at 12:35 EDT , Service support ,
== END ==
PROVIDERS: Family Provider Family Medicine; PCP Family Medicine; Referring Provider Surgery; Visit Provider Surgery
DX: R13.10 Dysphagia, unspecified (principal)
CPT/HCPCS: 74246

== ENCOUNTER 2018-07-01 07:26 | Day surgery (SDC) | payer MEDICARE, SELFPAY ==
[2018-06-14 13:26] VITALS: BMI 36.9
[2018-07-01 08:08] VITALS: BP 169/92; PULSE 73; RESP 16; TEMP 35.9; O2SAT 93
== END 2018-07-01 08:20 | disposition home or self-care (01) ==
PROVIDERS: Family Provider Family Medicine; PCP Family Medicine; Referring Provider Surgery; Visit Provider Surgery
PROC: F00ZJWZ Instrumental Swallowing and Oral Function Assessment using Swallowing Equipment (ICD-10-PCS; CPT 43235; principal; 2018-07-01 07:55)
DX: R13.10 Dysphagia, unspecified (principal)
CPT/HCPCS: 91010

== ENCOUNTER → 2018-07-21 13:03 | Outpatient (CLI) | payer MEDICARE, SELFPAY ==
[2018-07-07 13:27] VITALS: BMI 36.9
[2018-07-21 13:33] LABS: Absolute Lymphocyte Count 2.24 X10^3/ul (0.83-4.51); Absolute Neutrophil Count 4.2 X10^3/uL (2.0-7.7); Basophil# 0.02 X10^3/uL; Basophil% 0.3 % (0-1); Eosinophil# 0.11 X10^3/uL; Eosinophils% 1.5 % (0-5); Hematocrit 42.1 % (37-47); Hemoglobin 13.5 g/dl (12.0-15.0); Lymphocyte # 2.24 X10^3/ul (4.0); Lymphocyte % 30.5 % (19-41); Mean Corp Hgb Conc 32.1 g/gl (32-36); Mean Corpuscular Hgb 29.9 pg (27.0-32.0); Mean Corpuscular Volume 93.1 fL (81-99); Mean Platelet Vol. 8.9 fl (6.2-12.0); Monocyte# 0.71 X10^3/uL; Monocyte% 9.7 % (0-10); Neutrophil # 4.24 X10^3/uL (2.7-7.7); Neutrophil % 57.7 % (47-70); Platelet Count 264 K/mm3 (150-450); RBC Distribution Width CV 12.7 % (11.6-14.6); RBC Distribution Width SD 42.4 fl (35.1-43.9); Red Blood Count 4.52 M/mm3 (4.2-5.4); White Blood Count 7.3 K/mm3 (4.4-11.0)
[2018-07-21 13:38] LABS: POSITIVE COUNT NO; POSITIVE DIFFERENTIAL NO; POSITIVE MORPHOLOGY NO
[2018-07-21 13:56] LABS: AST(SGOT) 17 U/L (15-37); Alanine Aminotransfer ALT/SGPT 23 U/L (13-56); Albumin, Serum 3.4 g/dL (3.2-5.0); Alkaline Phosphatase 64 U/L (45-117); Anion Gap 5 (5-15); BUN 11 mg/dL (7-18); BUN/Creat Ratio 12.4 RATIO (10-20); Bilirubin, Direct 0.11 mg/dL (0.00-0.30); Calcium,Total 8.7 mg/dL (8.5-10.1); Chloride 105 mmol/L (98-107); Creatinine, Serum 0.89 mg/dL (0.55-1.02); EST Glomerular Filtration Rate 65 mL/min (>60); Est Glom Filt Rate - Afr Amer 79 mL/min (>60); Globulin 3.4 g/dL (2.2-4.2); Glucose 124 mg/dL (74-106); Potassium 3.8 mmol/L (3.5-5.1); Protein, Total 6.8 g/dL (6.4-8.2); Sodium Level 145 mmol/L (136-145)
[2018-07-25 09:11] LABS: KEPPRA (LEVETIRACETAM) 33.8 ug/mL (10.0-40.0)
== END ==
PROVIDERS: Family Provider Family Medicine; PCP Family Medicine; Referring Provider Nurse Practitioner Family; Visit Provider Nurse Practitioner Family
DX: R56.9 Unspecified convulsions (principal)
CPT/HCPCS: 36415; 80053; 80177; 82248; 85025

== ENCOUNTER → 2018-10-26 16:42 | Outpatient (CLI) | payer MEDICARE, SELFPAY ==
[2018-07-07 13:27] VITALS: BMI 36.9
--- NOTE | 2018-10-26 16:48 | CT_ITS ---
HISTORY:BACK PAIN. REQUISITION ORDERED LUMBAR AND INCLUDE SACRUM AND PELVIS - WITH IV CONTRAST BACK PAIN. REQUISITION ORDERED LUMBAR AND INCLUDE SACRUM AND PELVIS - WITH IV CONTRAST EXAMINATION: CT Spine Lumbar W/ Contrast TECHNIQUE: Helically acquired images were obtained of the lumbar spine. 2D reformats were reviewed. A radiation dose optimization technique was used for this scan. IV Contrast dosage and agent: None. COMPARISON: None FINDINGS: VERTEBRAE: No fracture or traumatic subluxation. No discrete lytic or blastic abnormality observed. Dextroscoliosis DISCS and SPINAL CANAL: Degenerative discogenic changes are noted. There is vacuum disc at the level of L2-3 and L3-4 with decreased disc space. There is facet arthrosis L1-L2 mild bilateral neuroforaminal narrowing Facet arthrosis seen is noted L2-3 with a diffuse annular bulge. No canal stenosis. Mild bilateral neuroforaminal narrowing on the right and moderate on the left Diffuse annular bulge at L3-4 with facet arthrosis. Subarticular recess narrowing. Moderate bilateral neuroforaminal narrowing Facet arthrosis at L4-5 with central canal stenosis. The canal is narrowed to approximately 5 mm. There is also diffuse annular bulge. There is facet arthrosis. Moderate bilateral neuroforaminal narrowing Subarticular recess narrowing seen at L5-S1. There is a diffuse annular bulge. Moderate bilateral neuroforaminal narrowing VISUALIZED ABDOMEN: Visualized abdominal aorta is not dilated. There is no retroperitoneal adenopathy. IMPRESSION: Degenerative changes of the lumbar spine without evidence of acute fracture There are areas of stenosis seen within 3 lumbar spine greatest at the level of L4-5. I would consider MRI for clinic gated Individualized dose optimization techniques were used for this CT. at 1820 Reported and signed by: Nancy Ferrari DO Electronically Signed: Nancy Ferrari DO at 18:19 EDT Tel , Service support , HISTORY:BACK PAIN. REQUISITION ORDERED LUMBAR AND INCLUDE SACRUM AND PELVIS - WITH IV CONTRAST BACK PAIN. REQUISITION ORDERED LUMBAR AND INCLUDE SACRUM AND PELVIS - WITH IV CONTRAST EXAMINATION: CT Sacrum and/or Coccyx W/ Contrast TECHNIQUE: Helically acquired images were obtained of the sacrum and coccyx with intravenous contrast.... 2-D reformats were performed by the technologist. A radiation dose optimization technique was used for this scan. IV Contrast dosage and agent: 100 cc of Isovue-370 COMPARISON: None FINDINGS: Sacroiliac joints: Minimal osteoarthritic changes seen with minimal subchondral sclerosis at the iliac side of the sacroiliac joints as well as minimal osteophytes. No erosions are noted. The sacroiliac joint distance is maintained. No evidence of an acute fracture. Facet arthrosis is seen at L4-5 and L5-S1. Soft tissues: Scattered atherosclerotic plaque is seen within the distal aorta and iliac arteries. IMPRESSION: Mild degenerative change of the bilateral sacroiliac joints. No evidence of an acute fracture is noted Individualized dose optimization techniques were used for this CT. at 1824 Reported and signed by: Nancy Ferrari DO Electronically Signed: Nancy Ferrari DO at 18:23 EDT Tel , Service support , HISTORY:BACK PAIN. REQUISITION ORDERED LUMBAR AND INCLUDE SACRUM AND PELVIS - WITH IV CONTRAST BACK PAIN. REQUISITION ORDERED LUMBAR AND INCLUDE SACRUM AND PELVIS - WITH IV CONTRAST EXAMINATION: CT Pelvis W/ Contrast TECHNIQUE:Routine noncontrast bone CT protocol was performed of the pelvis. 2-D reformats were performed by the technologist. A radiation dose optimization technique was used for this scan. IV Contrast dosage and agent: 100 cc of Isovue-370 COMPARISON: None FINDINGS: SOFT TISSUES: No soft tissue swelling or gas. No radiopaque foreign body. BONES/JOINTS: No acute fracture or subluxation. Minimal bilateral central joint space narrowing. There is a bone island seen within the right femoral head neck junction. Small enthesophytes are seen at the right greater trochanter. The left greater trochanter is not visualized on this study. Minimal enthesophytes are seen with initial tuberosities. There are also enthesophytes seen at the pubic symphysis with vacuum seen at the pubic symphysis as well as chondrocalcinosis. Preservation of the joint space. No sclerotic or destructive changes. CT/Spine Lumbar WITH Contrast IMPRESSION: No evidence of acute fracture or dislocation Enthesophytes are seen throughout the pelvis as discussed Minimal bilateral joint space narrowing at the hips. Individualized dose optimization techniques were used for this CT. at 1826 Reported and signed by: Nancy Ferrari DO Electronically Signed: Nancy Ferrari DO at 18:25 EDT Tel , Service support ,
[2018-10-26 17:01] LABS: CREATININE FINGERSTICK 0.8 mg/dL (0.55-1.02); EGFR FINGERSTICK > 60.0000 mL/min (>60)
== END ==
PROVIDERS: Family Provider Family Medicine; PCP Family Medicine; Referring Provider Family Medicine; Visit Provider Family Medicine
DX: M54.5 Low back pain (principal)
CPT/HCPCS: 72132; Q9967

== ENCOUNTER 2019-02-02 13:34 | Emergency (ER) | payer MEDICARE, SELFPAY ==
[2018-12-20 13:20] VITALS: BMI 37.7
[2019-02-02 13:35] VITALS: BP 125/81; PULSE 70; RESP 16; TEMP 36.4; O2SAT 89; BMI 35.5
--- NOTE | 2019-02-02 13:59 | RAD_ITS ---
STUDY: X-RAY - PELVIS AND LEFT HIP REASON FOR EXAM: Female, 78 years old. Left hip pain following a fall. TECHNIQUE: 3 views of the pelvis and hip. COMPARISON: None. FINDINGS: There is a non-specific bowel gas pattern. There are multiple calcified phleboliths. Normal bilateral iliac wings, sacroiliac joints and visualized sacrum. Normal bilateral superior and inferior pubic rami. There is narrowing with sclerosis of the pubic symphysis. Normal bilateral ischial tuberosities. Normal visualized femoral head. Normal acetabulum. There is moderate articular joint space narrowing of the hip. RAD/HIP, UNI W/ Pelvis 2-3 Views IMPRESSION: Osteoarthritis of both hip joints. Electronically Signed: Ramón Hyde, at 14:37 EST , Service support ,
--- NOTE | 2019-02-02 13:59 | CT_ITS ---
STUDY: CT BRAIN WITHOUT CONTRAST REASON FOR EXAM: Female, 78 years old. History of fall. The patient is on Lopressor. RADIATION DOSAGE (If Supplied By Facility): CTDIvol = ( 44.99 ) mGy, DLP = ( 779.24 ) mGycm TECHNIQUE: Transaxial CT imaging of the brain was performed without administration of intravenous contrast material. Individualized dose optimization techniques were used for this CT. COMPARISON: Comparison is made with prior study of October 07, 2017. FINDINGS: Normal soft tissue structures. Normal calvarium. There is mild cerebral atrophy with widening of the extra-axial spaces and ventricular dilatation. Normal white matter tracts of the cerebral hemispheres. Normal basal ganglia and thalami. Normal brainstem. Normal cerebellum. There is no intracranial hemorrhage. There are no findings of an acute ischemic infarction. Atherosclerotic calcification of the cavernous portions of the internal carotid arteries bilaterally. Normal visualized paranasal sinuses. CT/Brain/Head without Contrast IMPRESSION: Chronic involutional changes of the brain. Electronically Signed: Ramón Hyde, at 15:21 EST , Service support ,
--- NOTE | 2019-02-02 13:59 | CT_ITS ---
STUDY: CT CERVICAL SPINE WITHOUT CONTRAST REASON FOR EXAM: Female, 78 years old. History of fall. The patient is on liquids. RADIATION DOSAGE (If Supplied By Facility): CTDIvol = ( 27.15 ) mGy, DLP = ( 571.34 ) mGycm TECHNIQUE: High resolution transaxial imaging was performed without contrast material. Sagittal and coronal images were reconstructed. Individualized dose optimization techniques were used for this CT. COMPARISON: None FINDINGS: Normal craniovertebral junction. There are degenerative changes of the anterior atlantoaxial articulation. Normal odontoid process. Normal cervical lordosis. Normal vertebral bodies and posterior osseous elements. C2-3: Facet joint osteoarthritis and hypertrophy more prominent on the left side. Uncovertebral arthrosis. C3-4: Mild degree of disc space narrowing. Facet joint osteoarthritis and hypertrophy more prominent on the left side. C4-5: Moderate degree of disc space narrowing with spondylosis. Uncovertebral arthrosis. Facet joint osteoarthritis. Mild bilateral neural foraminal stenosis. C5-6: Marked degree of disc space narrowing with spondylosis. Uncovertebral arthrosis. Mild bilateral neural foraminal stenosis. C6-7: Mild degree of disc space narrowing and spondylosis. No significant stenosis is seen. Normal visualized soft tissue structures. CT/Spine Cervical without Contras IMPRESSION: Multilevel degenerative changes, as described above. Electronically Signed: Ramón Hyde, at 15:22 EST , Service support ,
--- NOTE | 2019-02-02 14:02 | ED.VIS.FALL ---
History of Present Illness Chief Complaint: Fall Informant: Patient, Family Mechanism/Context: Same level fall, - - left knee gave out Location: left buttock Quality of Pain: Aching Current Severity: Moderate Maximum Severity: Moderate Associated Symptoms: Negative for: Parasthesias, Weakness, Loss of function, Inability to ambulate, Loss of consciousness, Amnesia Narrative: Patient was in her kitchen when her right knee gave out early this morning around 12 hours ago before evaluation. She states she bumped her head but did not lose consciousness and denies a headache but has pain in her left lateral neck that goes up to her occiput. No nausea or vomiting. No focal neurologic symptoms in her periphery. She also injured her left hip although she points to the buttock and has no groin pain. No recent illnesses. She is on home oxygen for unknown reason and on Eliquis for unknown reason. She discusses having a pacemaker for unknown reasons. Patient states after she fell, she sat on the floor for about 3 hours this morning before she eventually was able to get up and around and then she was able to ambulate to and from different areas of her house. - Past Medical History (1) Complete heart block Status: Chronic (2) Sick sinus syndrome Status: Chronic (3) Hyperlipidemia Status: Chronic (4) Hypothyroidism Status: Chronic (5) Presence of permanent cardiac pacemaker Status: Chronic Comment: Implant 2000; gen change 2006; gen change and replacement of leads 07/11/14 Past Medical History - Allergies and Home Meds Allergies/Adverse Reactions: Allergies Penicillins Allergy (Verified 02/02/19 13:38) Unknown oxycodone HCl [From Percocet] Adverse Reaction (Verified 02/02/19 13:38) Other out of it Primary Care Physician: Mo Jameson MD [Primary Care Provider] - Surgical History: cataract, cholecystectomy, hysterectomy - With oophorectomy, total knee arthroplasty, - - Surgery on hiatal hernia, carpal tunnel surgery, pacemaker implantation Lives: Alone Smoking Status: Never smoker - Family History Maternal Family History: Family History (Last Reviewed 12/20/18 @ 13:22 by Kenyatta Quezada) Daughter Breast cancer Father Heart disease Family History: Reports: No pertinent history Paternal Family History: Family History (Last Reviewed 12/20/18 @ 13:22 by Kenyatta Quezada) Daughter Breast cancer Father Heart disease Family History: Reports: Diabetes, Heart Disease Review of Systems General: Denies: Chills, Fever, Sweats Eyes: Denies: Visual changes - bilaterally, Diplopia ENT: Denies: Rhinorrhea, Sore throat Cardiovascular: Denies: Chest pain, Palpitations Respiratory: Denies: Dyspnea, Cough, Dyspnea on exertion Gastrointestinal: Denies: Abdominal pain, Nausea, Vomiting, Diarrhea, Melena, Hematochezia Genitourinary: Denies: Dysuria, Hematuria, Frequency Musculoskeletal: Reports: Neck pain, Back pain - Chronic, worse, Extremity Pain - Left buttock/hip. Denies: Swelling Skin: Denies: Rash, Wounds Neurological: Denies: Headache, Weakness, Numbness Physical Exam Vital Signs/Narrative: Vital Signs Temp Pulse Resp BP Pulse Ox 02/02/19 13:35 97.5 F L 70 16 125/81 H 89 Inital Vital Signs reviewed: Yes General: Well nourished, Well developed Head: Normocephalic, Atraumatic. Negative for: Trauma, Tenderness Eyes: Perrl, EOMI ENT: TM's clear, No hemotympanum or drainage, No trauma. Negative for: Otorrhea, Nasal trauma Neck: Nontender, Full ROM Cardiovascular: Regular rate, Regular rhythm, No murmurs Respiratory: No distress, CTA bilaterally, Chest nontender Abdomen: Soft, Nontender, Nondistended, Normal bowel sounds Back: Nontender Extremeties: Painless full range of motion of the left knee and hip without any pain. She does have tenderness to the left ischial tuberosity. The pelvis is stable to AP compression. There is no other bony tenderness in the back or the neck, she has significant tenderness in the left side of the neck and ranges without any apparent difficulty. The rest of her extremities are atraumatic with full range of motion. All ligaments are stable and with short endpoints in the left knee. Skin: Normal color, No rash Neurological: Alert, Oriented x3, Cranial nerves II-XII grossly intact, Normal Strength, Normal Sensation Psychological: Normal affect, Normal Mood Diagnostic/Tx/Re-eval Impressions Brain CT 02/02/19 13:59 IMPRESSION: Chronic involutional changes of the brain. Electronically Signed: Ramón Hyde, at 15:21 EST , Service support , Cervical Spine CT 02/02/19 13:59 IMPRESSION: Multilevel degenerative changes, as described above. Electronically Signed: Ramón Hyde, at 15:22 EST , Service support , Hip/Pelvis X-Ray 02/02/19 13:59 IMPRESSION: Osteoarthritis of both hip joints. Electronically Signed: Ramón Hyde, at 14:37 EST , Service support , 02/02/19 13:59 Brain/Head without Contrast [CT] Stat HIP, UNI W/ Pelvis 2-3 Views [RAD] Stat Spine Cervical without Contras [CT] Stat Laboratory Results 02/02/19 15:05 Urine Color Yellow Urine Clarity Sl. Cloudy Urine pH 6.0 Ur Specific [place] 1.015 Urine Protein Negative Urine Glucose (UA) Normal Urine Ketones Negative Urine Occult Blood 10 H Urine Nitrite Negative Urine Bilirubin Negative Urine Urobilinogen Normal Ur Leukocyte Esterase 500 H Urine RBC 0-5 SEEN Urine WBC 10-25 SEEN Ur Squamous Epith Cells 10-25 SEEN Ur Transition Epith Cell 0-5 SEEN Ur Renal Epithelial Cell 0-5 SEEN Urine Bacteria 2+ Urine Mucus 0 SEEN - Medical Decision Making Imaging is all negative. She is able to weight bear and walk. I offered admission but she declines and wants to go home, she seems stable enough. Initial tuberosity does not appear to be fractured. There is no sign of intracerebral hemorrhage on her head CT. Urinalysis shows signs of infection, she has no systemic symptoms, or urinary symptoms. States she feels tired all the time and is not new. Will give her a 5-day course of Bactrim and send a culture and advised that she follow-up as an outpatient, she is comfortable with that plan. ED Disposition - Plan for ED Patient: Disposition: Home or Assisted Living Diagnosis: Fall, Contusion of buttock, UTI (urinary tract infection), Cervical strain, acute, Closed head injury without loss of consciousness Instructions: Fall Prevention, Understanding Urinary Tract Infections (UTIs), Neck Sprain/Strain Prescriptions: Sulfamethoxazole/Trimethoprim [Bactrim Ds Tablet] 1 ea PO BID #10 tab Transmission Status: Pending to [id number] Referrals: Mo Jameson MD [Primary Care Provider] - 5-7 Days
[2019-02-02] MEDS: HYDROcodone Bitartrate/Apap 5/325 Tablet PO (14:45)
[2019-02-02 15:13] LABS: Mucous, Urine 0 SEEN /hpf (<or=2+)
[2019-02-02 15:16] LABS: Color, Urine Yellow (Yellow); Glucose, Dipstick Normal (Normal); Ketone-Dipstick Negative (Negative); Leukocyte Esterase-Dipstick 500 /ul (Negative); Nitrite-Dipstick Negative (Negative); Occult Blood-Urine 10 /ul (Negative); Protein-Dipstick Negative (Negative); Specific Gravity, Urine 1.015 (1.002-1.030); Urine Bilirubin Dipstick Negative (Negative); Urine Clarity Sl. Cloudy (Clear); Urine Urobilinogen Normal (Normal)
[2019-02-02 15:35] LABS: Bacteria 2+ /hpf (None Seen); Red Blood Cells-Urine 0-5 SEEN /hpf (0-5); Renal Epithelial Cells 0-5 SEEN /hpf (0-5); Squamous Epithelial Cells - UA 10-25 SEEN /hpf (5-10); Transitional Epithelial - Ur 0-5 SEEN /hpf (0-5); White Blood Cells 10-25 SEEN /hpf (0-5)
--- NOTE | 2019-02-02 16:10 | CM.ED ---
SOCIAL WORK INFORMANT: NURSE REASON FOR REFERRAL: RESOURCES MET WITH PATIENT IN ROOM. INTRODUCED ROLE AND REASON FOR REFERRAL. PATIENT BEING DISCHARGED HOME. PATIENT DECLINES NEEDS FOR ANY ASSISTANCE/RESOURCES. EDUCATION PROVIDED ON HOME HEALTH RESOURCES IF NEEDED ONCE HOME. PLAN: HOME [employer], PRESS BOX CUSTODIAN.
== END 2019-02-02 16:23 | disposition home or self-care (01) ==
PROVIDERS: Emergency Provider Emergency Medicine; Family Provider Family Medicine; PCP Family Medicine
DX: S09.90XA Unspecified injury of head, initial encounter (principal); S16.1XXA Strain of muscle, fascia and tendon at neck level, initial encounter; S30.0XXA Contusion of lower back and pelvis, initial encounter; X58.XXXA Exposure to other specified factors, initial encounter; N39.0 Urinary tract infection, site not specified; E03.9 Hypothyroidism, unspecified; M16.0 Bilateral primary osteoarthritis of hip; E78.5 Hyperlipidemia, unspecified; Z79.01 Long term (current) use of anticoagulants; Z95.0 Presence of cardiac pacemaker; Z88.0 Allergy status to penicillin; Z88.5 Allergy status to narcotic agent; Z82.49 Family history of ischemic heart disease and other diseases of the circulatory system; Z90.49 Acquired absence of other specified parts of digestive tract; Z90.710 Acquired absence of both cervix and uterus
CPT/HCPCS: 70450; 72125; 73502; 81001; 87086; 87088; 99283

== ENCOUNTER 2019-08-22 17:58 | Emergency (ER) | payer MEDICARE, SELFPAY ==
[2019-08-22 18:00] VITALS: BP 157/81; PULSE 70; RESP 18; TEMP 36.6; O2SAT 94; BMI 39.0
--- NOTE | 2019-08-22 18:02 | ED.RN ---
[facility]-- [phone]
--- NOTE | 2019-08-22 19:46 | CT_ITS ---
STUDY: CT BRAIN WITHOUT CONTRAST REASON FOR EXAM: Female, 79 years old. MECHANICAL FALL/HIT HEAD LT FRONTAL AREA. No LOC. Hx of uterine and breast cancer. Pacemaker RADIATION DOSAGE (If Supplied By Facility): CTDIvol = ( 44.99 ) mGy, DLP = ( 745.49 ) mGycm TECHNIQUE: Transaxial CT imaging of the brain was performed without administration of intravenous contrast material. Individualized dose optimization techniques were used for this CT. COMPARISON: CT brain February 02, 2019 FINDINGS: Normal soft tissue structures. Normal calvarium. Normal size ventricles and extra-axial spaces for the patient''s age. Normal white matter tracts of the cerebral hemispheres. Normal basal ganglia and thalami. Normal brainstem. Normal cerebellum. There is no intracranial hemorrhage. There are no findings of an acute ischemic infarction. Normal visualized paranasal sinuses. CT/Brain/Head without Contrast IMPRESSION: Normal unenhanced CT scan of the brain. Electronically Signed: Anjel Whipple MD at 20:09 EDT , Service support ,
--- NOTE | 2019-08-22 19:47 | ED.VIS.GEN ---
History of Present Illness Chief Complaint: Fall Informant: Patient Onset: Today Narrative: Patient fell secondary to concrete issues in the parking lot where she resides. No loss of consciousness. She notes skin tears to the left wrist and thumb. She notes an injury to the left forehead. Unknown last tetanus. No neck pain. She denies any other injuries. Past Medical History - Allergies and Home Meds Allergies/Adverse Reactions: Allergies Penicillins Allergy (Verified 08/22/19 18:02) Unknown oxycodone HCl [From Percocet] Adverse Reaction (Verified 08/22/19 18:02) Other out of it Primary Care Physician: Mo Jameson MD [Primary Care Provider] - Surgical History: cataract, cholecystectomy, hysterectomy - With oophorectomy, total knee arthroplasty, - - Surgery on hiatal hernia, carpal tunnel surgery, pacemaker implantation Smoking Status: Current every day smoker - Family History Maternal Family History: Family History (Last Reviewed 12/20/18 @ 13:22 by Kenyatta Quezada) Daughter Breast cancer Father Heart disease Family History: Reports: No pertinent history Paternal Family History: Family History (Last Reviewed 12/20/18 @ 13:22 by Kenyatta Quezada) Daughter Breast cancer Father Heart disease Family History: Reports: Diabetes, Heart Disease Review of Systems General: Denies: Chills, Fever, Sweats Eyes: Denies: Visual changes - bilaterally, Diplopia ENT: Denies: Rhinorrhea, Sore throat Cardiovascular: Denies: Chest pain, Palpitations Respiratory: Denies: Dyspnea, Cough, Dyspnea on exertion Gastrointestinal: Denies: Abdominal pain, Nausea, Vomiting, Diarrhea, Melena, Hematochezia Genitourinary: Denies: Dysuria, Hematuria, Frequency Musculoskeletal: Denies: Back pain, Extremity Pain Skin: Denies: Rash, Wounds Neurological: Denies: Headache, Weakness, Numbness Physical Exam Vital Signs/Narrative: Vital Signs Temp Pulse Resp BP Pulse Ox 08/22/19 18:00 97.9 F 70 18 157/81 H 94 Inital Vital Signs reviewed: Yes General: Well nourished, Well developed, No Acute Distress Head: Normocephalic, Trauma - There is a 1 cm left temporal forehead laceration that is gaping. Able to wrinkle her forehead. Sensation intact. Eyes: Perrl, EOMI ENT: Moist mucous membranes, No rhinorrhea Neck: Supple, Nontender Cardiovascular: Regular rate, Regular rhythm, No murmurs Respiratory: No distress, CTA bilaterally, Chest nontender Abdomen: Soft, Nontender, Nondistended, Normal bowel sounds Back: Nontender, Normal Inspection Extremities: No edema, - - Tenderness to the dorsum of the left wrist with a 4 cm skin tear. There is a superficial half centimeter skin tear to the left thumb. Skin: Normal color, No rash Neurological: Alert, Oriented x3, Cranial nerves II-XII grossly intact, Normal Strength, Normal Sensation Psychological: Normal affect, Normal Mood Diagnostic/Tx/Re-eval Clinical Impression(s) from Imaging Studies Brain CT 08/22/19 19:46 IMPRESSION: Normal unenhanced CT scan of the brain. Electronically Signed: Anjel Whipple MD at 20:09 EDT , Service support , Wrist X-Ray 08/22/19 20:00 IMPRESSION: No acute fracture noted Electronically Signed: Anjel Whipple MD at 20:20 EDT , Service support , - Medical Decision Making Wound was locally anesthetized using 1% lidocaine washed with Shur-Clens and explored. It was closed using 3 simple erupted 5-0 repeat stitches. Tetanus is updated with Adacel. The wounds on her wrist were washed and smoothed out with a wet Q-tip. These will also be dressed. Wound care discussed with patient. Return if worsening or concerns ED Disposition - Plan for ED Patient: Disposition: Home or Assisted Living Diagnosis: Fall, Head injury due to trauma, Laceration of forehead, Tear of skin of left wrist Instructions: ED Head Injury Adult, ED Laceration Small or Superficial Not Stitched, ED Laceration Facial Sutr Tape Referrals: Mo Jameson MD [Primary Care Provider] - As Needed
--- NOTE | 2019-08-22 20:00 | RAD_ITS ---
STUDY: X-RAY - LEFT WRIST REASON FOR EXAM: Female, 79 years old. FALL, LEFT WRIST PAIN TECHNIQUE: 3 view(s) of the wrist were obtained. COMPARISON: None. FINDINGS: Normal visualized distal radius and ulna. Normal radiocarpal articulation. Normal distal radioulnar articulation. Normal carpal bones. Normal carpal articulations. There is degenerative arthrosis of the carpometacarpal articulation of the thumb. Normal second through fifth carpometacarpal articulations. Normal visualized metacarpal bones. The soft tissue structures are unremarkable. RAD/Wrist min 3 Views IMPRESSION: No acute fracture noted Electronically Signed: Anjel Whipple MD at 20:20 EDT , Service support ,
[2019-08-22] MEDS: Diphth,Pertuss(Acell),Tet Vac 0.5 ML Vial IM (20:34)
[2019-08-22 21:25] VITALS: BP 148/95; PULSE 78; RESP 17; O2SAT 93
== END 2019-08-22 21:27 | disposition home or self-care (01) ==
PROVIDERS: Emergency Provider Emergency Medicine; PCP Family Medicine
DX: S01.81XA Laceration without foreign body of other part of head, initial encounter (principal); S61.512A Laceration without foreign body of left wrist, initial encounter; W19.XXXA Unspecified fall, initial encounter; Y93.9 Activity, unspecified; Y92.481 Parking lot as the place of occurrence of the external cause; Y99.9 Unspecified external cause status; F17.200 Nicotine dependence, unspecified, uncomplicated; Z80.3 Family history of malignant neoplasm of breast; Z82.49 Family history of ischemic heart disease and other diseases of the circulatory system; Z85.3 Personal history of malignant neoplasm of breast; Z88.0 Allergy status to penicillin; Z88.5 Allergy status to narcotic agent; Z90.49 Acquired absence of other specified parts of digestive tract; Z90.710 Acquired absence of both cervix and uterus; Z95.0 Presence of cardiac pacemaker; Z23 Encounter for immunization
CPT/HCPCS: 12011; 70450; 73110; 90471; 90715; 99284

== ENCOUNTER → 2019-09-22 11:20 | Outpatient (CLI) | payer MEDICARE, SELFPAY ==
[2019-09-22 15:10] LABS: Absolute Lymphocyte Count 2.35 X10^3/uL (0.83-4.51); Basophil# 0.03 X10^3/uL; Basophil% 0.5 % (0-1); Eosinophil# 0.17 X10^3/uL; Eosinophils% 2.8 % (0-5); Hematocrit 41.5 % (37-47); Hemoglobin 12.9 g/dL (12.0-15.0); Lymphocyte # 2.35 X10^3/ul (4.0); Lymphocyte % 38.1 % (19-41); Mean Corp Hgb Conc 31.1 g/dL (32-36); Mean Corpuscular Hgb 30.4 pg (27.0-32.0); Mean Corpuscular Volume 97.6 fL (81-99); Mean Platelet Vol. 9.6 fl (6.2-12.0); Monocyte# 0.61 X10^3/uL; Monocyte% 9.9 % (0-10); NRBC Flagged by Analyzer 0 % (0-5); Neutrophil # 2.98 X10^3/uL (2.7-7.7); Neutrophil % 48.4 % (47-70); Platelet Count 244 K/mm3 (150-450); RBC Distribution Width CV 12.1 % (11.6-14.6); RBC Distribution Width SD 43.3 fl (35.1-43.9); RET-HE 34.6 pg (30-35); Red Blood Count 4.25 M/mm3 (4.2-5.4); Reticulocyte Count 1.68 % (0.5-1.5); White Blood Count 6.2 K/mm3 (4.4-11.0)
[2019-09-22 15:37] LABS: PTHIN 51.5 pg/mL (18.4-80.1)
[2019-09-22 15:49] LABS: AST(SGOT) 15 U/L (15-37); Alanine Aminotransfer ALT/SGPT 19 U/L (13-56); Albumin, Serum 3.1 g/dL (3.2-5.0); Alkaline Phosphatase 48 U/L (45-117); Anion Gap 3 (5-15); BUN 11 mg/dL (7-18); BUN/Creat Ratio 12.3 RATIO (10-20); Calcium,Total 8.7 mg/dL (8.5-10.1); Chloride 106 mmol/L (98-107); EST Glomerular Filtration Rate 64 mL/min (>60); Est Glom Filt Rate - Afr Amer 78 mL/min (>60); Ferritin 57 ng/mL (8-252); Globulin 3.2 g/dL (2.2-4.2); Glucose 120 mg/dL (74-106); Iron Binding Capacity,Total 256 ug/dL (250-450); Potassium 3.5 mmol/L (3.5-5.1); Protein, Total 6.3 g/dL (6.4-8.2); Sodium Level 142 mmol/L (136-145); Thyroid Stim Hormone (TSH) 7.19 uIU/mL (0.358-3.74)
== END ==
PROVIDERS: PCP Family Medicine; Referring Provider Family Medicine; Visit Provider Family Medicine
DX: M81.8 Other osteoporosis without current pathological fracture (principal); E03.9 Hypothyroidism, unspecified; E55.9 Vitamin D deficiency, unspecified; D51.0 Vitamin B12 deficiency anemia due to intrinsic factor deficiency
CPT/HCPCS: 36415; 80053; 82306; 82728; 82746; 83550; 83970; 84443; 85025; 85045

== ENCOUNTER → 2019-11-16 15:14 | Outpatient (CLI) | payer MEDICARE, SELFPAY ==
[2019-11-16 17:46] LABS: Absolute Lymphocyte Count 2.12 X10^3/uL (0.83-4.51); Absolute Neutrophil Count 3.6 X10^3/uL (2.0-7.7); Basophil# 0.03 X10^3/uL; Basophil% 0.5 % (0-1); Eosinophil# 0.08 X10^3/uL; Eosinophils% 1.2 % (0-5); Hemoglobin 13.6 g/dL (12.0-15.0); Lymphocyte # 2.12 X10^3/ul (4.0); Lymphocyte % 32.8 % (19-41); Mean Corp Hgb Conc 31.6 g/dL (32-36); Mean Corpuscular Hgb 30.3 pg (27.0-32.0); Mean Corpuscular Volume 95.8 fL (81-99); Monocyte# 0.58 X10^3/uL; NRBC Flagged by Analyzer 0 % (0-5); Neutrophil # 3.64 X10^3/uL (2.7-7.7); Neutrophil % 56.2 % (47-70); Platelet Count 264 K/mm3 (150-450); RBC Distribution Width CV 12.3 % (11.6-14.6); Red Blood Count 4.49 M/mm3 (4.2-5.4); White Blood Count 6.5 K/mm3 (4.4-11.0)
[2019-11-16 18:14] LABS: AST(SGOT) 11 U/L (15-37); Alanine Aminotransfer ALT/SGPT 23 U/L (13-56); Albumin, Serum 3.4 g/dL (3.2-5.0); Alkaline Phosphatase 57 U/L (45-117); Anion Gap 4 (5-15); BUN 11 mg/dL (7-18); Calcium,Total 8.8 mg/dL (8.5-10.1); Chloride 107 mmol/L (98-107); EST Glomerular Filtration Rate 57 mL/min (>60); Est Glom Filt Rate - Afr Amer 69 mL/min (>60); Ferritin 77 ng/mL (8-252); Globulin 3.5 g/dL (2.2-4.2); Glucose 110 mg/dL (74-106); Potassium 4.1 mmol/L (3.5-5.1); Protein, Total 6.9 g/dL (6.4-8.2); Sodium Level 142 mmol/L (136-145)
== END ==
PROVIDERS: PCP Family Medicine; Referring Provider Family Medicine; Visit Provider Family Medicine
DX: D51.0 Vitamin B12 deficiency anemia due to intrinsic factor deficiency (principal); M54.10 Radiculopathy, site unspecified
CPT/HCPCS: 36415; 80053; 82728; 82746; 85025

== ENCOUNTER → 2020-03-12 12:25 | Outpatient (CLI) | payer MEDICARE, SELFPAY | PROVIDERS: PCP Family Medicine; Referring Provider Family Medicine; Visit Provider Family Medicine | DX: Z20.828 Contact with and (suspected) exposure to other viral communicable diseases (principal) | CPT/HCPCS: 87635; U0003 ==

== ENCOUNTER 2020-06-05 11:29 | Emergency (ER) | payer MEDICARE, SELFPAY ==
[2020-06-05 11:31] VITALS: BP 97/83; PULSE 72; RESP 22; TEMP 36.1; O2SAT 93; BMI 35.5
--- NOTE | 2020-06-05 11:41 | CT_ITS ---
STUDY: CT BRAIN WITHOUT CONTRAST REASON FOR EXAM: Female, 80 years old. Trauma RADIATION DOSAGE (If Supplied By Facility): CTDIvol = ( 60.81 ) mGy, DLP = ( 1044.28 ) mGycm TECHNIQUE: Transaxial CT imaging of the brain was performed without administration of intravenous contrast material. Individualized dose optimization techniques were used for this CT. COMPARISON: Comparison is made with prior study dated 08/22/2019. FINDINGS: Normal soft tissue structures. Normal calvarium. There is mild cerebral atrophy with widening of the extra-axial spaces and ventricular dilatation. There are areas of decreased attenuation within the white matter tracts of the supratentorial brain, consistent with microvascular disease changes. Stable prominence of the CSF space along the anterior medial aspect of the left temporal lobe suggestive of a small arachnoid cyst. Normal basal ganglia and thalami. Normal brainstem. Normal cerebellum. There is no intracranial hemorrhage. There are no findings of an acute ischemic infarction. Atherosclerotic calcification of the vertebral arteries and cavernous portions of the internal carotid arteries bilaterally. Normal visualized paranasal sinuses. CT/Brain/Head without Contrast IMPRESSION: Chronic involutional changes of the brain. Stable examination. Electronically Signed: Ramón Hyde MD at 12:54 EDT , Service support ,
--- NOTE | 2020-06-05 11:41 | EKG12_ITS ---
Test Reason : Blood Pressure : / mmHG Vent. Rate : 070 BPM Atrial Rate : 070 BPM P-R Int : 256 ms QRS Dur : 094 ms QT Int : 438 ms P-R-T Axes : -46 -41 040 degrees QTc Int : 473 ms Atrial-paced rhythm with prolonged AV conduction Left axis deviation Low voltage QRS Confirmed by JERAMIE MOLINA, HEMA ([id number]), newspaper photo editor BRITT MARCUS ([id number]) on 06/07/2020 12:54:54 PM Referred By: YONG Confirmed By:HEMA BOBO MD
--- NOTE | 2020-06-05 11:42 | CT_ITS ---
STUDY: CT CERVICAL SPINE WITHOUT CONTRAST REASON FOR EXAM: Female, 80 years old. Trauma RADIATION DOSAGE (If Supplied By Facility): CTDIvol = ( 29.48 ) mGy, DLP = ( 504.65 ) mGycm TECHNIQUE: High resolution transaxial imaging was performed without contrast material. Sagittal and coronal images were reconstructed. Individualized dose optimization techniques were used for this CT. COMPARISON: Comparison is made with prior examination of 02/02/2019. FINDINGS: Normal craniovertebral junction. There are degenerative changes of the anterior atlantoaxial articulation. Normal odontoid process. Normal cervical lordosis. Normal vertebral bodies and posterior osseous elements. C2-3: Mild degree of disc space narrowing. Facet joint osteoarthritis and hypertrophy worse on the left side with uncovertebral arthrosis. Mild degree of bilateral neural foraminal stenosis. C3-4: Mild degree of disc space narrowing. Facet joint osteoarthritis and hypertrophy worse on the left side. Uncovertebral arthrosis. Mild bilateral neural foraminal stenosis. C4-5: Moderate degree of disc space narrowing. Uncovertebral arthrosis. Facet joint osteoarthritis more prominent on the right side with right neural foraminal stenosis. C5-6: Moderate degree of disc space narrowing and spondylosis. Uncovertebral arthrosis. Mild degree of bilateral neural foraminal stenosis. C6-7: Moderate degree of disc space narrowing. Uncovertebral arthrosis. Mild degree of bilateral neural foraminal stenosis. C7-T1: Normal endplates. Normal disc height and morphology. Normal central canal and intervertebral neuroforamina. Focal calcification in the right lobe of the thyroid gland. CT/Spine Cervical without Contras IMPRESSION: Multilevel degenerative changes, as described above. Electronically Signed: Ramón Hyde MD at 12:52 EDT , Service support ,
--- NOTE | 2020-06-05 11:54 | ED.VISSUMM ---
- ER Visit Summary Date of Service: 06/05/20 Chief Complaint: [Fall] History of Present Illness: The patient is a 80 F [presents to the emergency department via EMS after sustaining a fall last evening about 1:30 AM. Patient states that she fell out of bed. Patient was unable to get up and spent the morning on the floor. This morning she was able to get a hold of somebody who presented to her home. She attempted to stand and had a pop in her left knee but denies any knee or hip pain currently. Patient did hit her head but denies loss of consciousness. She describes a mild neck pain. She denies any paresthesias or weakness to the extremities. She denies recent illness. Patient is anticoagulated with Eliquis but she is not sure why. Patient has history of high cholesterol, hypothyroidism, history of heart block and has a pacemaker.] Physical Examination: [HEENT-PERRLA, EOMI. Cranial nerves II through XII grossly intact. TMs clear. Mucous membranes moist. No adenopathy. Patient has some faint ecchymosis to the forehead without any hematomas noted and no bony depressions noted. Patient is a mild diffuse C-spine torso palpation. No bony step-offs noted. Cardiovascular-regular rate and rhythm without murmur or ectopy Lungs-clear to auscultation, chest wall stable without crepitus or subcu emphysema Abdomen-normoactive bowel sounds, soft, nontender, no rebound or rigidity, no peritoneal signs. Extremities-intact ?4, normal range of motion, normal pulses, atraumatic] Test Results: [EKG obtained arrival showed an atrially paced rhythm with nonspecific ST changes noted. CBC with differential obtained showed a white count of 8.4, hemoglobin 13, hematocrit 40, placed 244. Chemistries unremarkable. BUN was 20 creatinine 1.05. Urinalysis normal. Troponin was less than 0.015. CPK was 108. Chest x-ray 1 view obtained interpreted by myself as no acute disease process. Patient was noted to have a pacemaker in the right chest. Radiology thought patient had borderline cardiomegaly. CT brain showed chronic involutional changes without any traumatic injuries noted. Patient had a CT of the cervical spine that showed no evidence of fracture or dislocation and only degenerative changes.] Emergency Department Course and Treatment: [The line established on arrival. Patient placed on a cafeteria monitor. Patient was able to ambulate in the department without difficulty. I discussed results with patient and she is comfortable going home and her brother is comfortable taking her home.] Treatment Plan: [She will be discharged home and advised to follow-up with primary care physician within next 3 to 5 days.] Disposition: [Discharge home in stable condition] Impression: [Mechanical fall Closed head injury Cervical strain] This note was generated with [employer] dictation software. It may contain incorrect words, spelling, and punctuation that were not noted in review of the chart prior to signing ED Disposition - Plan for ED Patient: Referrals: Mo Jameson MD [Primary Care Provider] -
[2020-06-05] MEDS: 0.9% Normal Saline 1,000 ML 150 ML IV (11:59)
--- NOTE | 2020-06-05 12:05 | RAD_ITS ---
STUDY: X-RAY CHEST REASON FOR EXAM: Female, 80 years old. Fall TECHNIQUE: Single AP portable view of the chest. COMPARISON: Comparison is made with prior study dated 02/22/2018. FINDINGS: EKG electrodes are seen. The lungs are clear and expanded. There is no demonstrated pleural abnormality. There is borderline cardiomegaly. The right-sided dual-chamber pacemaker is seen. Normal mediastinum and mirlande. Normal visualized pulmonary arteries. There is atherosclerotic calcification of the aortic arch with tortuosity. There are diffuse degenerative changes of the visualized thoracic spine. Normal visualized ribs, clavicles, and shoulders. There is no demonstrated abnormality of the visualized soft tissue structures of the upper abdomen. RAD/Chest 1 View (Portable) IMPRESSION: Borderline cardiomegaly. No acute abnormality is seen. Electronically Signed: Ramón Hyde MD at 12:23 EDT , Service support ,
[2020-06-05 12:11] LABS: Absolute Lymphocyte Count 1.88 X10^3/uL (0.83-4.51); Absolute Neutrophil Count 5.5 X10^3/uL (2.0-7.7); Basophil# 0.03 X10^3/uL; Basophil% 0.4 % (0-1); Eosinophil# 0.04 X10^3/uL; Eosinophils% 0.5 % (0-5); Hematocrit 40.4 % (37-47); Hemoglobin 13.2 g/dL (12.0-15.0); Lymphocyte # 1.88 X10^3/ul (4.0); Lymphocyte % 22.3 % (19-41); Mean Corp Hgb Conc 32.7 g/dL (32-36); Mean Corpuscular Volume 94.8 fL (81-99); Mean Platelet Vol. 9.4 fl (6.2-12.0); Monocyte# 0.93 X10^3/uL; NRBC Flagged by Analyzer 0 % (0-5); Neutrophil # 5.52 X10^3/uL (2.7-7.7); Neutrophil % 65.4 % (47-70); Platelet Count 244 K/mm3 (150-450); RBC Distribution Width CV 12.4 % (11.6-14.6); RBC Distribution Width SD 42.9 fl (35.1-43.9); Red Blood Count 4.26 M/mm3 (4.2-5.4); White Blood Count 8.4 K/mm3 (4.4-11.0)
[2020-06-05 12:29] LABS: Anion Gap 4 (5-15); BUN 20 mg/dL (7-18); Calcium,Total 9.4 mg/dL (8.5-10.1); Chloride 106 mmol/L (98-107); Creatinine, Serum 1.05 mg/dL (0.55-1.02); EST Glomerular Filtration Rate 54 mL/min (>60); Est Glom Filt Rate - Afr Amer 65 mL/min (>60); Estimated Creatinine Clearance 30.69 ml/min; Glucose 111 mg/dL (74-106); Sodium Level 141 mmol/L (136-145)
[2020-06-05 12:32] LABS: CPK Total, Creatine Kinase 108 U/L (26-192)
--- NOTE | 2020-06-05 12:52 | ED.RN ---
pt got out of her bed on her own, ambulated around the room with out assistance, got back in bed on her. this rn in room with pt during ambulation. pt denies pain.
[2020-06-05 12:55] VITALS: BP 144/93; PULSE 74; O2SAT 94
[2020-06-05 13:00] LABS: Bacteria 0 SEEN /hpf (None Seen); Mucous, Urine 0 SEEN /hpf (<or=2+); Red Blood Cells-Urine 0 SEEN /hpf (0-5); White Blood Cells 0 SEEN /hpf (0-5)
[2020-06-05 13:08] LABS: Color, Urine Yellow (Yellow); Glucose, Dipstick Normal (Normal); Ketone-Dipstick Negative (Negative); Leukocyte Esterase-Dipstick 25 /ul (Negative); Nitrite-Dipstick Negative (Negative); Occult Blood-Urine Negative /ul (Negative); Protein-Dipstick Negative (Negative); Urine Bilirubin Dipstick Negative (Negative); Urine Clarity Clear (Clear); Urine Urobilinogen Normal (Normal)
[2020-06-05 13:12] LABS: Squamous Epithelial Cells - UA 0-5 SEEN /hpf (5-10)
--- NOTE | 2020-06-05 13:40 | ED.DEP ---
ED Disposition - Plan for ED Patient: Instructions: ED Mechanical Fall, ED Head Injury (Adult), ED Neck Sprain or Strain Referrals: Mo Jameson MD [Primary Care Provider] - 3-5 Days
[2020-06-05 13:56] VITALS: BP 128/64
== END 2020-06-05 13:59 | disposition home or self-care (01) ==
PROVIDERS: Emergency Provider Emergency Medicine; PCP Family Medicine
DX: S09.90XA Unspecified injury of head, initial encounter (principal); S16.1XXA Strain of muscle, fascia and tendon at neck level, initial encounter; W06.XXXA Fall from bed, initial encounter; E03.9 Hypothyroidism, unspecified; E78.00 Pure hypercholesterolemia, unspecified; Z79.01 Long term (current) use of anticoagulants; Z95.0 Presence of cardiac pacemaker
CPT/HCPCS: 70450; 71045; 72125; 80048; 81001; 82550; 84484; 85025; 93005; 96360; 96361; 99285; J7030; A4216

== ENCOUNTER → 2020-08-07 15:33 | Outpatient (CLI) | payer MEDICARE, SELFPAY ==
[2020-08-07 17:32] LABS: Absolute Lymphocyte Count 2.18 X10^3/uL (0.83-4.51); Absolute Neutrophil Count 4.1 X10^3/uL (2.0-7.7); Basophil# 0.03 X10^3/uL; Basophil% 0.4 % (0-1); Eosinophil# 0.04 X10^3/uL; Eosinophils% 0.6 % (0-5); Hematocrit 42.1 % (37-47); Hemoglobin 13.7 g/dL (12.0-15.0); Lymphocyte # 2.18 X10^3/ul (0.83-4.51); Lymphocyte % 30.9 % (19-41); Mean Corp Hgb Conc 32.5 g/dL (32-36); Mean Corpuscular Hgb 30.4 pg (27.0-32.0); Mean Corpuscular Volume 93.6 fL (81-99); Mean Platelet Vol. 9.6 fl (6.2-12.0); Monocyte# 0.65 X10^3/uL; Monocyte% 9.2 % (0-10); NRBC Flagged by Analyzer 0 % (0-5); Neutrophil # 4.14 X10^3/uL (2.7-7.7); Neutrophil % 58.8 % (47-70); Platelet Count 246 K/mm3 (150-450); RBC Distribution Width CV 12.6 % (11.6-14.6); RBC Distribution Width SD 43.8 fl (35.1-43.9); White Blood Count 7.1 K/mm3 (4.4-11.0)
[2020-08-07 17:46] LABS: Vitamin D,25 Hydroxy 29.9 ng/mL
[2020-08-07 18:21] LABS: AST(SGOT) 20 U/L (15-37); Alanine Aminotransfer ALT/SGPT 20 U/L (13-56); Albumin, Serum 3.5 g/dL (3.2-5.0); Alkaline Phosphatase 54 U/L (45-117); Anion Gap 5 (5-15); BUN 14 mg/dL (7-18); BUN/Creat Ratio 14.7 RATIO (10-20); Chloride 105 mmol/L (98-107); Creatinine, Serum 0.96 mg/dL (0.55-1.02); EST Glomerular Filtration Rate 60 mL/min (>60); Est Glom Filt Rate - Afr Amer 72 mL/min (>60); Globulin 3.5 g/dL (2.2-4.2); Glucose 102 mg/dL (74-106); Potassium 3.9 mmol/L (3.5-5.1); Sodium Level 141 mmol/L (136-145); Thyroid Stim Hormone (TSH) 1.41 uIU/mL (0.358-3.74)
== END ==
PROVIDERS: PCP Family Medicine; Referring Provider Family Medicine; Visit Provider Family Medicine
DX: E55.9 Vitamin D deficiency, unspecified (principal); M25.50 Pain in unspecified joint
CPT/HCPCS: 36415; 80053; 82306; 84443; 85025

== ENCOUNTER → 2020-09-04 14:36 | Outpatient (CLI) | payer MEDICARE, SELFPAY ==
[2020-08-22 14:31] VITALS: BMI 37.8
--- NOTE | 2020-09-04 14:43 | RAD_ITS ---
INDICATION: BACK PAIN EXAMINATION/TECHNIQUE: X-RAY - XR Spine Lumbar Min 4 Views COMPARISON: 11/05/2017. FINDINGS: VERTEBRAE: Preserved vertebral body height. No fracture. Dextroscoliosis of the lumbar spine. 5 mm retrolisthesis L3 on L4. Preservation of the normal lumbar lordosis. Severe multilevel facet arthropathy. DISCS: Severe multilevel degenerative disc disease and spondylosis. INCLUDED ABDOMEN: Included bowel gas pattern is non-obstructive. RAD/L/S Spine Min 4 Views IMPRESSION: Grade 1 retrolisthesis L3 on L4. Severe multilevel degenerative disc disease and spondylosis. Electronically Signed: Ezequiel Reis MD at 23:30 EDT Tel , Service support ,
== END ==
PROVIDERS: PCP Family Medicine; Referring Provider Family Medicine; Visit Provider Family Medicine
DX: M54.9 Dorsalgia, unspecified (principal)
CPT/HCPCS: 72110

== ENCOUNTER 2020-09-18 12:27 | Emergency (ER) | payer MEDICARE, SELFPAY ==
[2020-08-22 14:31] VITALS: BMI 37.8
[2020-09-18 12:27] VITALS: BP 112/71; PULSE 79; RESP 16; TEMP 36.4; O2SAT 95; BMI 37.3
--- NOTE | 2020-09-18 13:40 | CT_ITS ---
STUDY: CT LUMBAR SPINE WITHOUT CONTRAST REASON FOR EXAM: Female, 80 years old. One-month history of low back pain following a fall. RADIATION DOSAGE (If Supplied By Facility): CTDIvol = ( 37.90 ) mGy, DLP = ( 1196.11 ) mGycm TECHNIQUE: The patient was scanned in a multi detector CT scanner. High resolution transaxial imaging was performed. Images were obtained from L1 to S1 vertebral level. Sagittal and coronal images were reconstructed. Individualized dose optimization techniques were used for this CT. COMPARISON: Comparison is made with prior examination 10/26/2018. FINDINGS: Normal lumbar lordosis. There is no substantial scoliosis. There now is evidence of approximately 10-20% loss of height of the superior endplate of the L1 vertebrae as compared to prior study. L1-2: Loss of height of the superior endplate of the L1 vertebrae with anterior spondylosis. Mild degree of disc space narrowing. Facet joint osteoarthritis and hypertrophy with bilateral neural foraminal stenosis. L2-3: Moderate degree of disc space narrowing. Spondylosis. Facet joint osteoarthritis and hypertrophy with the bilateral neural foraminal stenosis. L3-4: Marked degree of disc space narrowing. Spondylosis. Facet joint osteoarthritis. Mild degree of central canal stenosis due to hypertrophy of the ligamentum flavum. Minimal retrolisthesis of L3 on L4. L4-5: Mild degree of disc space narrowing. Diffuse posterior disc bulge. Facet joint osteoarthritis and hypertrophy with hypertrophy of the ligamenta flava. This causes a marked degree of central canal stenosis and moderate degree of bilateral neural foraminal stenosis. L5-S1: Mild degree of disc space narrowing. Facet joint osteoarthritis and hypertrophy. Mild degree of bilateral neural foraminal stenosis. Normal visualized paraspinous soft tissue structures. CT/Spine Lumbar without Contrast IMPRESSION: Multilevel degenerative changes, as described above. 10-20% loss of height of the superior endplate of the L1 vertebrae. Electronically Signed: Ramón Hyde MD at 14:44 EDT , Service support ,
[2020-09-18] MEDS: morphine 10 MG/ML Syringe 6 MG SC (13:53)
--- NOTE | 2020-09-18 15:20 | EDS_ITS ---
HPI History of Present Illness Chief Complaint: Back Narrative Narrative: Patient presenting for evaluation secondary to back pain. Patient states that about 3 weeks ago she suffered a mechanical fall. She was walking on some uneven ground, and fell directly on her buttock. Patient was seen by primary care, did have x-rays that were found to be negative. She has been placed on oxycodone for this. Patient states that she has been continuing to have lower back pain. States that her back, does not really radiate to the legs. No bowel or bladder incontinence. No fevers chills night sweats or unintended weight loss. No recent injections or surgeries or history of IV drug abuse. Patient states that the pain is moderate worse with movement worse with palpation. Review of systems otherwise negative. [facility] Medical History (Updated 09/18/20 @ 15:[address] Daniel Carney MD) Breast cancer CHF (congestive heart failure) Complete heart block CVA (cerebral vascular accident) Depression Dyspnea Gastric wall thickening History of sinoatrial node dysfunction Hyperlipidemia Hypothyroidism Insomnia Mid back pain on right side Osteoarthritis Presence of permanent cardiac pacemaker Seizure disorder Sick sinus syndrome Syncope and collapse Home Medications levetiracetam 1,500 mg PO Q12H 01/01/13 [History Last Taken 07/20/14 09:00] quetiapine 400 mg PO QHS 01/01/13 [History Last Taken 07/20/14] cod liver oil 1 cap PO BID 08/03/17 [History Last Taken Unknown] naltrexone 50 mg PO DAILY 10/23/17 [History Last Taken Unknown] tizanidine 2 mg PO Q8H PRN PRN 10/23/17 [History Last Taken Unknown] apixaban 5 mg tablet 5 mg PO BID tab 12/20/18 [History Last Taken Unknown] bupropion HCl 300 mg 24 hr tablet, extended release 150 mg PO DAILY tab 12/20/18 [History Last Taken Unknown] diltiazem HCl 30 mg tablet 30 mg PO TID 06/14/20 [History Last Taken Unknown] levothyroxine 75 mcg tablet 75 mcg PO DAILY 06/14/20 [History Last Taken Unknown] lidocaine HCl 1 patch TOPICAL DAILY PRN #30 ea 09/18/20 [Rx Last Taken Unknown] Allergy/AdvReac Type Severity Reaction Status Date / Time Penicillins Allergy Unknown Verified 09/18/20 12:30 Family History Daughter Breast cancer Father Heart disease Surgical History History of appendectomy History of bilateral carpal tunnel release History of bilateral knee replacement History of bladder suspension procedure History of foot surgery History of hernia surgery History of hysterectomy History of laparoscopic cholecystectomy History of left cataract extraction History of left mastectomy Status post biventricular cardiac pacemaker insertion Social History Smoking Status: Never smoker alcohol intake: never substance use type: does not use ROS ROS ED Constitutional Constitutional ED: Reports other Details: Denies recent surgeries, or injections ; Denies chills, fever(s), sweats or weight loss Cardiovascular Cardiovascular: Denies chest pain Respiratory/Chest Respiratory/Chest: Denies dyspnea Gastrointestinal Gastrointestinal: Reports other Details: Denies Bowel Incontinence ; Denies abd ominal pain Genitourinary Genitourinary ED: Reports other Details: Denies Bladder Incontinence Musculoskeletal Musculoskeletal: Reports back pain Integumentary Reports other Details: No Petechiae ; Denies rash Neurologic Neurologic: Reports other Details: Denies Numbness, or Weakness Psychiatric Psychiatric: Reports other Details: Denies history of IV Drug abuse Hematologic/Lymphatic Hematologic/Lymphatic: Denies lymphadenopathy EXAM Physical Exam Const Vital Signs: 09/18/20 12:27 Temperature 97.5 F L Temperature Source Temporal Pulse Rate 79 Respiratory Rate 16 Blood Pressure 112/71 Blood Pressure Mean 84 Pulse Ox 95 Oxygen Delivery Method Room Air Positive well nourished and well developed General Appearance ED: well developed and NAD HEENT Reports normocephalic and head/scalp atraumatic Eyes EOMs intact bilaterally Neck supple Resp normal respiratory effort and clear to auscultation bilaterally Cardio regular rate, regular rhythm and no murmurs Bruits: other Other Details: 2+ Radial Pulses 2+ DP Pulses 2+ PT Pulses Peripheral Pulses: radial pulses present, posterior tibial pulses present and dorsalis pedis pulses present GI normal to inspection, nondistended, normoactive bowel sounds, soft to palpation and non-tender Palpation: Negative for pulsatile mass Back/Spine normal to inspection Back/Spine Narrative: Tenderness to palpation over the upper portion of the patient's lumbar spine. Patient has straight leg raise that reproduces the pain in her upper back, but is not positive is there are no radicular symptoms. Thoracic Spine / Upper Back: Negative for thoracic spinal tenderness Lumbar Spine / Lower Back: Negative for lumbar spinal tenderness Extremity normal to inspection Neuro oriented x3 and no sensory deficits noted Neuro Narrative: Motor: Hip flexion Knee flexion Knee extension Dorsiflexion Plantar Flexion Extensor Hallicus longus Sensorium / Orientation: alert Sensory Exam: other Motor Exam: strength 5/5 throughout Deep Tendon Reflexes: Rt Patellar (L4): 2+, Lt Patellar (L4): 2+, Rt Ankle (S1): 2+ and Lt Ankle (S1): 2+ Deep Tendon Reflexes Back: Rt Patellar (L4): 2+, Lt Patellar (L4): 2+, Rt Ankle (S1): 2+ and Lt Ankle (S1): 2+ Plantar Reflex: Other: bilateral (No pathologic clonus) Psych mental status grossly normal Skin no rashes or lesions noted Trauma: other No petechiae MDM MDM MDM Narrative Medical decision making narrative: Patient presented secondary to back pain. Patient was given a dose of morphine in the emergency department. CT imaging of the lumbar spine was obtained which shows multilevel degenerative changes as well as a 10 to 20% loss of height superior endplate of the L1 vertebrae. This likely was the cause of the patient's pain. Patient is already on oxycodone. Patient be sent home with a course of lidocaine patches, and recommended on range of motion exercises. I will give her a referral to spine surgery. She understands signs and symptoms which to return. Patient was discharged in stable condition. Radiography Diagnostic Testing: Radiology Impression Lumbar Spine CT 09/18/20 13:40 IMPRESSION: Multilevel degenerative changes, as described above. 10-20% loss of height of the superior endplate of the L1 vertebrae. Electronically Signed: Ramón Hyde MD at 14:44 EDT , Service support , Discharge Plan Triage Chief Complaint: Back ED Provider: Daniel Carney Dx/Rx/DC Orders Clinical Impression: Lumbar back pain Instructions: ED Fracture, Vertebral Compression Prescriptions: New lidocaine HCl 4 % adhesive patch,medicated 1 patch topical DAILY PRN (Reason: pain) Qty: 30 RF: 0 No Action cod liver oil capsule 1 cap PO BID RF: 0 apixaban 5 mg tablet 5 mg PO BID RF: 0 levetiracetam 1,000 MG tablet 1,500 mg PO Q12H RF: 0 quetiapine 400 MG tablet 400 mg PO QHS RF: 0 bupropion HCl 300 mg tablet extended release 24 hr 150 mg PO DAILY RF: 0 tizanidine 2 MG tablet 2 mg PO Q8H PRN PRN (Reason: MUSCLE CRAMP) RF: 0 naltrexone 50 MG tablet 50 mg PO DAILY RF: 0 diltiazem HCl [Cardizem] 30 mg tablet 30 mg PO TID RF: 0 levothyroxine 75 mcg tablet 75 mcg PO DAILY RF: 0 Primary Care Provider: Mo Jameson Referrals: Mo Jameson MD [Primary Care Provider] - Cody Boucher DO [STAFF PHYSICIAN] - 1-2 Weeks Disposition Disposition: Home, Self Care
== END 2020-09-18 15:42 | disposition home or self-care (01) ==
PROVIDERS: Emergency Provider Emergency Medicine; PCP Family Medicine
DX: M54.5 Low back pain (principal); R29.890 Loss of height; Z96.653 Presence of artificial knee joint, bilateral; Z90.49 Acquired absence of other specified parts of digestive tract; Z90.12 Acquired absence of left breast and nipple; Z90.710 Acquired absence of both cervix and uterus; E03.9 Hypothyroidism, unspecified; E78.5 Hyperlipidemia, unspecified; G40.909 Epilepsy, unspecified, not intractable, without status epilepticus; F32.9 Major depressive disorder, single episode, unspecified; G47.00 Insomnia, unspecified; I50.9 Heart failure, unspecified; Z79.01 Long term (current) use of anticoagulants; Z95.0 Presence of cardiac pacemaker
CPT/HCPCS: 72131; 99282

== ENCOUNTER 2020-09-19 10:28 | Inpatient (IN) | payer MEDICARE, SELFPAY ==
[2020-09-18 12:27] VITALS: BMI 37.3
[2020-09-19] VITALS (7 sets, daily range): BP systolic 102–140; BP diastolic 54–86; PULSE 71–78; RESP 16–18; TEMP 36.6–37; O2SAT 92–97; BMI 37.8; BMI 36.5
--- NOTE | 2020-09-19 10:41 | ED.VIS.BACK ---
HPI History of Present Illness Chief Complaint: Back Detail of Chief Complaint: Back pain for 3 weeks Informant: patient Onset/Context/Timing Current Severity: Moderate Maximum Severity: Severe Associated Symptoms Associated Symptoms: Negative for Numbness, Tingling, Radiation to Right Leg, Urinary Incontinence and Constipation Narrative Narrative: Patient presents to the emergency department with complaint of back pain that she is had for about 3 weeks. Patient states that she suffered a fall directly onto her buttocks on August 30. Patient states she did not start having back pain until 3 or 4 days later. Patient followed up with her primary care physician who performed x-rays of her back and started her on oxycodone. She was told there was no fractures. Patient was seen in the emergency department last evening for ongoing back pain and had a CT scan of her back which showed loss of height of 10-20% of L1 endplate. Patient was medicated with morphine and referred to her pain management doctor for follow-up. Patient was seen by nurse practitioner for her pain management doctor today and was too uncomfortable and referred to the ER for further management of her pain. Patient denies any pain rating down her legs. She denies loss of bowel or bladder function. She denies urinary symptoms. She denies fevers. Prior similar symptoms: No PFSH PFSH Medical History (Updated 09/19/20 @ 12:[address] Mata Rangel, ) Breast cancer CHF (congestive heart failure) Complete heart block CVA (cerebral vascular accident) Depression Dyspnea Gastric wall thickening History of sinoatrial node dysfunction Hyperlipidemia Hypothyroidism Insomnia Mid back pain on right side Osteoarthritis Presence of permanent cardiac pacemaker Seizure disorder Sick sinus syndrome Syncope and collapse Home Medications levetiracetam 1,500 mg PO Q12H 01/01/13 [History Last Taken 07/20/14 09:00] quetiapine 400 mg PO QHS 01/01/13 [History Last Taken 07/20/14] cod liver oil 1 cap PO BID 08/03/17 [History Last Taken Unknown] apixaban 5 mg tablet 5 mg PO BID tab 12/20/18 [History Last Taken Unknown] bupropion HCl 300 mg 24 hr tablet, extended release 150 mg PO DAILY tab 12/20/18 [History Last Taken Unknown] diltiazem HCl 30 mg tablet 30 mg PO TID 06/14/20 [History Last Taken Unknown] levothyroxine 75 mcg tablet 75 mcg PO DAILY 06/14/20 [History Last Taken Unknown] lidocaine HCl 1 patch TOPICAL DAILY PRN #30 ea 09/18/20 [Rx Last Taken Unknown] baclofen 10 mg PO TID PRN 09/19/20 [History Last Taken Unknown] bupropion HCl 300 mg PO QHS 09/19/20 [History Last Taken Unknown] magnesium oxide 800 mg PO DAILY 09/19/20 [History Last Taken Unknown] simvastatin 20 mg PO QHS 09/19/20 [History Last Taken Unknown] Allergy/AdvReac Type Severity Reaction Status Date / Time Penicillins Allergy Unknown Verified 09/19/20 10:28 rivaroxaban [From Xarelto] Allergy PT UNSURE Verified 09/19/20 10:36 OF REACTION Family History Daughter Breast cancer Father Heart disease Surgical History History of appendectomy History of bilateral carpal tunnel release History of bilateral knee replacement History of bladder suspension procedure History of foot surgery History of hernia surgery History of hysterectomy History of laparoscopic cholecystectomy History of left cataract extraction History of left mastectomy Status post biventricular cardiac pacemaker insertion Social History Smoking Status: Never smoker alcohol intake: never substance use type: does not use ROS ROS ED Constitutional Constitutional ED: Reports systems reviewed and no addt'l complaints, except as documented; Denies body ache(s), change in weight or chills Eyes Eyes: Denies acute decrease in peripheral vision, change in vision, double vision or loss of vision ENT ENT ED: Reports none; Denies ear pain, lip swelling, loss taste/smell, neck pain, otalgia or sore throat Cardiovascular Cardiovascular: Reports none; Denies abdominal pain, chest pain with activity, leg edema, lightheadedness, palpitations, rapid heart rate or syncope Respiratory/Chest Respiratory/Chest: Reports none; Denies change in mental status, dry cough, dyspnea, hemoptysis, shortness of breath at rest or shortness of breath with exertion Gastrointestinal Gastrointestinal: Reports none; Denies abdominal pain, change in stool character, diarrhea, hematemesis, hematochezia, melena, rectal bleeding or vomiting Genitourinary Genitourinary ED: Reports none; Denies abdominal discomfort, anuria, dysuria, genital pain or polyuria Musculoskeletal Musculoskeletal: Reports none and back pain; Denies arthralgias, difficulty walking, extremity pain, muscle weakness or myalgias Integumentary Reports none; Denies abscess or rash Neurologic Neurologic: Reports none; Denies abnormal gait, confusion, focal weakness, frequent falls, headache(s), loss of vision, numbness, paresthesias, radicular pain, vertigo or weakness Psychiatric Psychiatric: Reports systems reviewed and no addt'l complaints, except as documented and none; Denies behavioral changes, confusion, difficulty concentrating, hallucinations, suicidal ideation, tactile hallucinations or visual hallucinations Endocrine Endocrinology: Denies none, cold intolerance, excessive sweating, fatigue or heat intolerance Hematologic/Lymphatic Hematologic/Lymphatic: Reports none; Denies anemia, easy bleeding or easy bruising Allergic/Immunologic Allergic/Immunologic ED: Denies as per HPI, none, lip swelling, mouth swelling, throat swelling, tongue swelling or hives EXAM Physical Exam Const Vital Signs: 09/19/20 10:29 09/19/20 10:30 Temperature 98.6 F 98.6 F Temperature Source Oral Temporal Pulse Rate 78 78 Respiratory Rate 18 16 Blood Pressure 140/86 H 140/86 H Blood Pressure Mean 104 104 Pulse Ox 92 92 Oxygen Delivery Method Room Air Room Air Positive well nourished and well developed General Appearance ED: well developed and NAD HEENT Reports TM's clear and moist mucous membranes normocephalic and atraumatic; Negative for trauma or tenderness Tympanic Membrane ED: Yes TM's clear Eyes PERRL and EOMs intact bilaterally General Eye ED: Negative for pale conjunctiva or scleral icterus Neck no lymphadenopathy, supple and no JVD General: Negative for tenderness Chest Wall inspection of chest normal and palpation of chest normal Chest: Negative for tenderness Resp normal respiratory effort and clear to auscultation bilaterally Effort and Inspection: Negative for respiratory distress or pain with movement Auscultation: Negative for rhonchi, wheezes or diminished lung sounds Cardio regular rate, regular rhythm, S1 normal heart sound, S2 normal heart sound and no murmurs Peripheral Pulses: pulses 2+ throughout GI normal to inspection, nondistended, normoactive bowel sounds, soft to palpation, non-tender, non-distended and no masses Back/Spine no CVA tenderness; Negative for no thoracic nor lumbar tenderness Back/Spine Narrative: Evaluation of her back reveals tenderness palpation over the upper lumbar spine as well as the right lumbar paraspinal musculature. No erythema or rashes noted. Negative straight leg raises. Deep tendon reflexes are plus out of 4 bilaterally. Patient has normal L5 extension bilaterally. Extremity normal to inspection General Extremety ED: Negative for edema General Extremity: Negative for edema Neuro oriented x3, CN's II-XII intact bilaterally, no sensory deficits noted and gait normal Sensorium / Orientation: awake, alert, oriented to person, oriented to place and oriented to time Motor Exam: strength 5/5 throughout and strength abnormal Psych mental status grossly normal Skin no rashes or lesions noted and no wounds MDM MDM MDM Narrative Medical decision making narrative: Patient on Eliquis and has a pacemaker. Etiology of her pain is unclear however suspect may be related to compression fracture of L1. Given the fact that she is on Eliquis would entertain the possibility of epidural hematoma however she is having no neurologic or radiculopathic symptoms. Patient was medicated with morphine and Zofran in case discussed with hospitalist will evaluate patient for admission. Lab Data Attestation: I reviewed the patient's lab results. Labs: Laboratory Results - last 24 hr 09/19/20 09/19/20 09/19/20 11:15 11:15 11:59 WBC 11.1 H RBC 4.86 Hgb 14.8 Hct 45.7 MCV 94.0 MCH 30.5 MCHC 32.4 RDW Std Deviation 42.3 RDW Coeff of Daniel 12.2 Plt Count 282 MPV 8.9 Immature Gran % (Auto) 0.400 Neut % (Auto) 73.3 H Lymph % (Auto) 15.3 L [place] % (Auto) 10.2 H Eos % (Auto) 0.5 Baso % (Auto) 0.3 Absolute Neuts (auto) 8.1 H Absolute Lymphs (auto) 1.70 Nucleated RBC % 0 Sodium 138 Potassium 3.7 Chloride 100 Carbon Dioxide 33.0 H Anion Gap 5 BUN 19 H Creatinine 1.03 H Estim Creat Clear Calc 31.29 Est GFR (MDRD) Af Amer 66 Est GFR (MDRD) Non-Af 55 L BUN/Creatinine Ratio 18.4 Glucose 105 Calcium 9.2 Urine Color Yellow Urine Clarity Clear Urine pH 6.0 Ur Specific [place] 1.025 Urine Protein 15 H Urine Glucose (UA) Normal Urine Ketones 15 H Urine Occult Blood 25 H Urine Nitrite Negative Urine Bilirubin Negative Urine Urobilinogen 4 H Ur Leukocyte Esterase 100 H Urine RBC 0-5 SEEN Urine WBC 10-25 SEEN Ur Squamous Epith Cells 0-5 SEEN Urine Bacteria 1+ Urine Mucus 2+ Discharge Plan Triage Chief Complaint: Back ED Provider: Mata Rangel Dx/Rx/DC Orders Clinical Impression: Intractable back pain, Compression fracture Prescriptions: No Action cod liver oil capsule 1 cap PO BID RF: 0 apixaban 5 mg tablet 5 mg PO BID RF: 0 levetiracetam 1,000 MG tablet 1,500 mg PO Q12H RF: 0 quetiapine 400 MG tablet 400 mg PO QHS RF: 0 bupropion HCl 300 mg tablet extended release 24 hr 150 mg PO DAILY RF: 0 lidocaine HCl 4 % adhesive patch,medicated 1 patch topical DAILY PRN (Reason: pain) Qty: 30 RF: 0 baclofen 10 mg Tablet 10 mg PO TID PRN (Reason: Pain) RF: 0 simvastatin 20 mg Tablet 20 mg PO QHS RF: 0 bupropion HCl 300 mg tablet extended release 24 hr 300 mg PO QHS RF: 0 magnesium oxide 400 mg magnesium Tablet 800 mg PO DAILY RF: 0 diltiazem HCl [Cardizem] 30 mg tablet 30 mg PO TID RF: 0 levothyroxine 75 mcg tablet 75 mcg PO DAILY RF: 0 Primary Care Provider: Mo Jameson Referrals: Mo Jameson MD [Primary Care Provider] - Disposition Disposition: Acute Care Hospital [facility]
[2020-09-19] MEDS: 0.9% Normal Saline 1,000 ML 15 ML IV (11:18)
[2020-09-19] MEDS: Ondansetron 4 MG/2 ML Vial IV ×2 (11:18→17:48)
[2020-09-19] MEDS: Morphine 4 MG/ML Syringe IV ×2 (11:18→13:59)
[2020-09-19 11:22] LABS: Absolute Neutrophil Count 8.1 X10^3/uL (2.0-7.7); Basophil# 0.03 X10^3/uL; Basophil% 0.3 % (0-1); Eosinophil# 0.05 X10^3/uL; Eosinophils% 0.5 % (0-5); Hematocrit 45.7 % (37-47); Hemoglobin 14.8 g/dL (12.0-15.0); Lymphocyte % 15.3 % (19-41); Mean Corp Hgb Conc 32.4 g/dL (32-36); Mean Corpuscular Hgb 30.5 pg (27.0-32.0); Mean Platelet Vol. 8.9 fl (6.2-12.0); Monocyte# 1.13 X10^3/uL; Monocyte% 10.2 % (0-10); NRBC Flagged by Analyzer 0 % (0-5); Neutrophil # 8.14 X10^3/uL (2.7-7.7); Neutrophil % 73.3 % (47-70); Platelet Count 282 K/mm3 (150-450); RBC Distribution Width CV 12.2 % (11.6-14.6); RBC Distribution Width SD 42.3 fl (35.1-43.9); Red Blood Count 4.86 M/mm3 (4.2-5.4); White Blood Count 11.1 K/mm3 (4.4-11.0)
--- NOTE | 2020-09-19 11:22 | ED.RN ---
PT INSISTS OK TO USE LEFT ARM FOR IV INSERTION, CONFIRMED WITH PT AND DAUGHTER TWICE.
[2020-09-19 11:36] LABS: Anion Gap 5 (5-15); BUN 19 mg/dL (7-18); BUN/Creat Ratio 18.4 RATIO (10-20); Calcium,Total 9.2 mg/dL (8.5-10.1); Chloride 100 mmol/L (98-107); Creatinine, Serum 1.03 mg/dL (0.55-1.02); EST Glomerular Filtration Rate 55 mL/min (>60); Est Glom Filt Rate - Afr Amer 66 mL/min (>60); Estimated Creatinine Clearance 31.29 ml/min; Glucose 105 mg/dL (74-106); Potassium 3.7 mmol/L (3.5-5.1); Sodium Level 138 mmol/L (136-145)
[2020-09-19 12:21] LABS: Color, Urine Yellow (Yellow); Glucose, Dipstick Normal (Normal); Ketone-Dipstick 15 mg/dl (Negative); Leukocyte Esterase-Dipstick 100 /ul (Negative); Nitrite-Dipstick Negative (Negative); Occult Blood-Urine 25 /ul (Negative); Protein-Dipstick 15 mg/dl (Negative); Specific Gravity, Urine 1.025 (1.002-1.030); Urine Bilirubin Dipstick Negative (Negative); Urine Clarity Clear (Clear); Urine Urobilinogen 4 mg/dl (Normal)
[2020-09-19 12:38] LABS: Bacteria 1+ /hpf (None Seen); Mucous, Urine 2+ /hpf (<or=2+); Red Blood Cells-Urine 0-5 SEEN /hpf (0-5); Squamous Epithelial Cells - UA 0-5 SEEN /hpf (5-10); White Blood Cells 10-25 SEEN /hpf (0-5)
--- NOTE | 2020-09-19 14:29 | PCM.HP.STD ---
HPI - General HPI Narrative DEVORA CHILDERS, is a 80 F with history of chronic nonvalvular A. fib, sick sinus syndrome status post pacemaker came to ER with severe back pain for last 3 weeks after she had fall. She fell down on August on buttocks after she lost balance, she is on Rollator. She noted back pain for initial 3 to 4 days but later on having back pain therefore went to PCP and had an x-ray and started on oxycodone. Patient was also seen in the ER yesterday evening and had CT of lumbar spine which showed fracture of superior endplate of L1 with loss of 10 to 20% height. She was given morphine and was sent home to follow up with pain doctor but came back today with intractable back pain. Currently she has pain 8/10 intensity localized. She denies sciatica pain, numbness, tingling, paresthesia, loss of bladder or bowel function or other neurological symptoms. [facility] Medical History Breast cancer CHF (congestive heart failure) Complete heart block CVA (cerebral vascular accident) Depression Dyspnea Gastric wall thickening History of sinoatrial node dysfunction Hyperlipidemia Hypothyroidism Insomnia Irregular heart beat Mid back pain on right side Non-smoker Osteoarthritis Pacemaker Presence of permanent cardiac pacemaker Seizure disorder Sick sinus syndrome Syncope and collapse Home Medications levetiracetam 1,500 mg PO Q12H 01/01/13 [History Last Taken 07/20/14 09:00] quetiapine 400 mg PO QHS 01/01/13 [History Last Taken 07/20/14] cod liver oil 1 cap PO BID 08/03/17 [History Last Taken Unknown] apixaban 5 mg tablet 5 mg PO BID tab 12/20/18 [History Last Taken Unknown] bupropion HCl 300 mg 24 hr tablet, extended release 150 mg PO DAILY tab 12/20/18 [History Last Taken Unknown] diltiazem HCl 30 mg tablet 30 mg PO TID 06/14/20 [History Last Taken Unknown] levothyroxine 75 mcg tablet 75 mcg PO DAILY 06/14/20 [History Last Taken Unknown] lidocaine HCl 1 patch TOPICAL DAILY PRN #30 ea 09/18/20 [Rx Last Taken Unknown] baclofen 10 mg PO TID PRN 09/19/20 [History Last Taken Unknown] bupropion HCl 300 mg PO QHS 09/19/20 [History Last Taken Unknown] magnesium oxide 800 mg PO DAILY 09/19/20 [History Last Taken Unknown] simvastatin 20 mg PO QHS 09/19/20 [History Last Taken Unknown] Allergy/AdvReac Type Severity Reaction Status Date / Time Penicillins Allergy Unknown Verified 09/19/20 10:28 rivaroxaban [From Xarelto] Allergy PT UNSURE Verified 09/19/20 10:36 OF REACTION Family History Daughter Breast cancer Father Heart disease Surgical History History of appendectomy History of bilateral carpal tunnel release History of bilateral knee replacement History of bladder suspension procedure History of cholecystectomy History of foot surgery History of hernia surgery History of hysterectomy History of laparoscopic cholecystectomy History of left cataract extraction History of left mastectomy Status post biventricular cardiac pacemaker insertion Social History Smoking Status: Never smoker alcohol intake: never substance use type: does not use ROS ROS Narrative Constitutional: Reports fatigue and weakness and pain over her back HEENT: Reports systems reviewed and no addt'l complaints, except as documented Respiratory/Chest: Denies chest pain or shortness of breath at rest or with exertion Gastrointestinal: Denies coffee ground emesis, hematemesis or vomiting Genitourinary: Denies burning urination. No change in bladder function. Musculoskeletal: Reports joint pain and limited range of motion back. Arthritis in knees and hips. Neurologic: Denies seizure-like activity skin: No ulcer. No rash Endocrinology: Reports systems reviewed and no addt'l complaints, except as documented Hematologic/Lymphatic: Reports systems reviewed and no addt'l complaints, except as documented Rest 12 ROS are negative except as mentioned in HPI Vital Signs Vital Signs Vital Signs: 09/19/20 10:29 09/19/20 10:30 09/19/20 13:49 Temperature 98.6 F 98.6 F 97.8 F Temperature Source Oral Temporal Oral Pulse Rate 78 78 78 Respiratory Rate 18 16 18 Blood Pressure 140/86 H 140/86 H 119/74 Blood Pressure Mean 104 104 89 Pulse Ox 92 92 96 Oxygen Delivery Method Room Air Room Air Nasal Cannula Oxygen Flow Rate (L/min) 2 Weight Weight: 193 lb 15.756 oz Body Mass Index (BMI) 37.8 Physical Exam Narrative Physical exam General: Alert, Oriented x3, Cooperative HEENT: Atraumatic, PERRLA, EOMI, Normocephalic Oral: No Gingival or Mucosal Lesions/ Ulcerations Neck: Supple, No JVD, Negative Carotid Bruits Lungs: Air entry diminished in bilateral lung bases. No crepitation/rhonchi Cardiovascular: Left subclavicular pacemaker. Regular paced rhythm, normal S1-S2, No murmurs Abdomen: Bowel Sounds Present, Soft, Non Tender, Non-Distended : No renal angle tenderness. No suprapubic tenderness. Extremities: No edema, Capillary Refill Less than 3 Seconds Skin: No rashes, No breakdown Musculoskeletal/spine: Tenderness present over lumbar spine and paraspinal muscle. Range of motion limited. Arthritis of hip and knee joints. Neurological: Cranial nerves II-XII grossly intact, Deep Tendon Reflexes 2+/4 and Symmetrical, Neuro grossly intact Psych/Mental Status: Normal Affect, Appropriate. Results Lab / Micro Data Result Diagrams: 09/19/20 11:15 09/19/20 11:15 Labs: Laboratory Results - last 24 hr 09/19/20 09/19/20 09/19/20 11:15 11:15 11:59 WBC 11.1 H RBC 4.86 Hgb 14.8 Hct 45.7 MCV 94.0 MCH 30.5 MCHC 32.4 RDW Std Deviation 42.3 RDW Coeff of Daniel 12.2 Plt Count 282 MPV 8.9 Immature Gran % (Auto) 0.400 Neut % (Auto) 73.3 H Lymph % (Auto) 15.3 L [place] % (Auto) 10.2 H Eos % (Auto) 0.5 Baso % (Auto) 0.3 Absolute Neuts (auto) 8.1 H Absolute Lymphs (auto) 1.70 Nucleated RBC % 0 Sodium 138 Potassium 3.7 Chloride 100 Carbon Dioxide 33.0 H Anion Gap 5 BUN 19 H Creatinine 1.03 H Estim Creat Clear Calc 31.29 Est GFR (MDRD) Af Amer 66 Est GFR (MDRD) Non-Af 55 L BUN/Creatinine Ratio 18.4 Glucose 105 Calcium 9.2 Urine Color Yellow Urine Clarity Clear Urine pH 6.0 Ur Specific [place] 1.025 Urine Protein 15 H Urine Glucose (UA) Normal Urine Ketones 15 H Urine Occult Blood 25 H Urine Nitrite Negative Urine Bilirubin Negative Urine Urobilinogen 4 H Ur Leukocyte Esterase 100 H Urine RBC 0-5 SEEN Urine WBC 10-25 SEEN Ur Squamous Epith Cells 0-5 SEEN Urine Bacteria 1+ Urine Mucus 2+ Assessment & Plan Assessment/Plan (1) Compression fracture: (2) Intractable back pain: PLAN: This is a 80-year-old female admitted with intractable back pain progressively worsening for last 3 years after a fall. 1. Fall with fracture of superior endplate of L1 vertebra: CT individually reviewed and shows multilevel degenerative changes along with 10 to 20% loss of height of superior endplate of L1 vertebra. Patient is admitted on [facility] floor. I discussed with Dr. Tiwari and he agreed to see the patient. Patient last dose of Eliquis was 09/18/20. Eliquis is on hold. On pain management and muscle relaxant. PT and OT ordered. 2. Sick sinus syndrome, history of complete heart block status post pacemaker and chronic A. fib: Heart rate is controlled. 12-lead EKG from August 22, 2020 shows electronic atrial pacemaker, demand type, low voltage with poor RR wave progression. Continue rate control medications, daily. Patient follows Dr. Amado as an outpatient 3. Dyslipidemia: Continue statin. VTE prophylaxis: Hold Eliquis for possible, anticipated kyphoplasty. Bilateral SCDs. Diagnosis, CT findings, medications and plan of management discussed with the patient's daughterJenny Living will/advanced directive/end of life care: Patient does have living will or advanced directive. After discussion of benefits/risks procedures involved with full code, DNR CC arrest and DNR CC, the patient opted for DNR-CC Arrest with no intubation. Patient accompanied by her daughterJenny Patient does not want artificial life support including intubation, tube feed, ventilator and/chest compression, central venous catheter, vasopressor and DC shock if needed Total time spent in [id number] encounter in discussion of advanced directive 16 minutes. Charges/Coding Visit Charges Inpatient E&M: 72632 Init Hosp L3 Procedures Hospitalists Procedures: 29357 Advncd Care Plan 30 Min
--- NOTE | 2020-09-19 14:32 | NURSING ---
MED SURG MARIS INTRACTABLE PAIN, FALL,
[2020-09-19] MEDS: Acetaminophen 325 MG Tablet 650 MG PO (16:29)
[2020-09-19] MEDS: Baclofen 10 MG Tablet PO (16:29)
[2020-09-19] MEDS: oxyCODONE 5 MG Tablet PO ×2 (16:29→22:51)
[2020-09-19] MEDS: dilTIAZem 30 MG Tablet PO ×2 (16:29→22:48)
[2020-09-19] MEDS: 0.9% Saline Lock 10 ML Syringe IV (17:48)
[2020-09-19] MEDS: Mag Hydrox/Al Hydrox/Simeth 30 ML UDC 15 ML PO (18:57)
[2020-09-19] MEDS: Metoclopramide 10 MG/2 ML Vial 5 MG IV (19:30)
[2020-09-19] MEDS: HYDROmorphone 0.5 MG/0.5 ML SYRINGE IV (19:31)
[2020-09-19] MEDS: Pantoprazole Sodium 40 MG Tablet PO (19:38)
[2020-09-19] MEDS: Atorvastatin Calcium 10 MG Tablet PO (22:47)
[2020-09-19] MEDS: levETIRAcetam 750 MG Tablet 1500 MG PO (22:47)
[2020-09-19] MEDS: QUEtiapine 100 MG Tablet 200 MG PO (22:48)
[2020-09-19] MEDS: Senna/Docusate Sodium 1 Tablet 2 TABLET PO (22:48)
[2020-09-19] MEDS: buPROPion (XL) 300 MG TABLET.XL PO (22:49)
[2020-09-20 02:50] VITALS: BP 93/47; PULSE 72; RESP 16; TEMP 36.6; O2SAT 94
[2020-09-20] MEDS: Levothyroxine 75 MCG Tablet PO (05:53)
[2020-09-20] MEDS: dilTIAZem 30 MG Tablet PO ×3 (05:53→22:35)
--- NOTE | 2020-09-20 06:00 | EKG12_ITS ---
Test Reason : AM EKG Blood Pressure : / mmHG Vent. Rate : 070 BPM Atrial Rate : 069 BPM P-R Int : 000 ms QRS Dur : 084 ms QT Int : 414 ms P-R-T Axes : 000 -35 078 degrees QTc Int : 447 ms Electronic atrial pacemaker Left axis deviation Low voltage QRS Inferior infarct (cited on or before 20-SEP-2020) Abnormal ECG When compared with ECG of 05-JUN-2020 12:25, No significant change was found Confirmed by CHRIS MOLINA, DANNA ([id number]), continuity editor BRITT MARCUS ([id number]) on 09/20/2020 12:56:20 PM Referred By: MARIS Confirmed By:VIVIAN PEREZ MD
[2020-09-20 06:55] LABS: Absolute Lymphocyte Count 2.16 X10^3/uL (0.83-4.51); Absolute Neutrophil Count 2.8 X10^3/uL (2.0-7.7); Basophil# 0.02 X10^3/uL; Basophil% 0.3 % (0-1); Eosinophil# 0.12 X10^3/uL; Hematocrit 43.6 % (37-47); Hemoglobin 13.8 g/dL (12.0-15.0); Lymphocyte # 2.16 X10^3/ul (0.83-4.51); Lymphocyte % 36.7 % (19-41); Mean Corp Hgb Conc 31.7 g/dL (32-36); Mean Corpuscular Hgb 30.1 pg (27.0-32.0); Mean Platelet Vol. 8.8 fl (6.2-12.0); Monocyte# 0.81 X10^3/uL; Monocyte% 13.8 % (0-10); NRBC Flagged by Analyzer 0 % (0-5); Neutrophil # 2.75 X10^3/uL (2.7-7.7); Neutrophil % 46.9 % (47-70); Platelet Count 252 K/mm3 (150-450); RBC Distribution Width CV 12.1 % (11.6-14.6); Red Blood Count 4.59 M/mm3 (4.2-5.4); White Blood Count 5.9 K/mm3 (4.4-11.0)
[2020-09-20 07:06] LABS: Partial Thromboplast Time 30.7 Seconds (24.1-36.2)
[2020-09-20 07:38] LABS: Anion Gap 3 (5-15); BUN 17 mg/dL (7-18); BUN/Creat Ratio 16.5 RATIO (10-20); Chloride 103 mmol/L (98-107); Creatinine, Serum 1.03 mg/dL (0.55-1.02); EST Glomerular Filtration Rate 55 mL/min (>60); Est Glom Filt Rate - Afr Amer 66 mL/min (>60); Estimated Creatinine Clearance 31.29 ml/min; Glucose 113 mg/dL (74-106); Potassium 3.8 mmol/L (3.5-5.1); Sodium Level 138 mmol/L (136-145); Thyroid Stim Hormone (TSH) 2.67 uIU/mL (0.358-3.74)
[2020-09-20 08:10] VITALS: O2SAT 92
[2020-09-20 08:40] VITALS: BP 123/90; PULSE 70; RESP 16; TEMP 36.7; O2SAT 94
[2020-09-20] MEDS: oxyCODONE 5 MG Tablet PO ×2 (09:10→14:16)
[2020-09-20] MEDS: Pantoprazole Sodium 40 MG Tablet PO (09:10)
[2020-09-20] MEDS: Senna/Docusate Sodium 1 Tablet 2 TABLET PO ×2 (09:11→22:40)
[2020-09-20] MEDS: Magnesium Chloride 64 MG Delay Rel.Tablet 128 MG PO (09:11)
[2020-09-20] MEDS: levETIRAcetam 750 MG Tablet 1500 MG PO ×2 (09:12→22:32)
[2020-09-20] MEDS: buPROPion (XL) 150 MG TABLET.XL PO (09:12)
[2020-09-20] MEDS: Calcium Carb/Vitamin D 1 TABLET Tablet PO (09:17)
--- NOTE | 2020-09-20 11:25 | CASEMGMT ---
ISMAEL WATERS Assessment: Face to Face with pt for initial transition planning/care coordination assessment. RN JT introduced self and role at [facility], pt voices understanding and consents to assessment. Pt is A/O x4 and answers all questions appropriately at this time. Pt lying in bed with O2 on. Pt brother Jose at bedside. Pt states all aspects of her care can be discussed with her brother Jose Shook. Care providers, pharmacy, and demographics verified/updated. Admitting Dx: fall with L1 vertebra fx PCP: Trino Specialists: [facility] Preferred Pharmacy: [facility] Insurance: [employer] [facility] Prescription Benefit: yes LW/HPOA: Pt states she has a LW/DPOA. Her brother Jose Shook is her DPOA. LNOK: Naman Shook, brother; Jose Shook, brother; Melyssa Tillman dtr Living Arrangements: Pt lives alone in a ground level apt with 2 steps to enter with a grab bar. Pt states she normally is I in ADL's. Pt denies concerns at home. Transportation: Pt drives self. She states she only drives during the day and locally. Denies concerns with transportation. DME/HHC/SNF: Pt has a cane at home as well as O2 concentrator and portable O2 tanks. Pt states currently she does not use O2 and she has been having tests by Dr. Jameson to see if she needs to start using it. Pt states her equipment is from when [employer] was in service. She states if she should need O2 upon dc, she would like to use [employer]. Pt brother asks this RN CM to contact [employer] to see if she is being billed for the equipment. Made him aware that the [employer] who does not accept insurance, but he still wants CM to call. Pt denies any HHC or SNF stays. Pt is anxiously awaiting kyphoplasty tomorrow. She states she hopes this will alleviate her pain. Pt states no concerns with going home at time of dc. Pt states no further concerns/needs. CM to follow. Advised pt to ask CM if any further question/concerns/needs arise, voices understanding. Pt Goal: Home Plan: Home
--- NOTE | 2020-09-20 11:42 | CM.UR ---
Addendum entered by Kina Lara 09/20/20 15:23: ISMAEL WATERS called [facility] again. Spoke to billing dept who states there is no charge for pt O2. ISMAEL WATERS in to pt room to make aware. Also provided pt with phone number to [facility]. Pt denies further needs. Original Note: ISMAEL WATERS called [facility] in [place] and spoke to rep, she states they are not affiliated with what was [facility]. She states to call [facility] at [phone]. TC to [facility] left message on billing dept voicemail to question if pt is being charged for O2. Will await returned call.
[2020-09-20] MEDS: Lidocaine 5% Patch 1 PATCH TOPICAL (12:37)
--- NOTE | 2020-09-20 13:32 | PN.HOSP_ITS ---
Subjective Subjective Patient has back pain 8/10 intensity on movement, rotational movement on the spine or sitting up. Seen by pain management. Plan for kyphoplasty tomorrow. Objective Data Objective Data Vital Signs: Vital Signs Temp Pulse Resp BP Pulse Ox 98.0 F 70 16 123/90 H 94 09/20/20 08:40 09/20/20 08:40 09/20/20 08:40 09/20/20 08:40 09/20/20 08:40 Oxygen Flow Rate (L/min) 2 Oxygen Delivery Method Nasal Cannula Weight: 187 lb Body Mass Index (BMI) 36.5 Intake & Output: Intake and Output for Last 24 Hours 09/18/20 09/19/20 09/20/20 23:59 23:59 23:59 Intake Total 89 / 89 320 / 320 Output Total 200 / 200 Balance 89 / 89 120 / 120 Lab / Micro Data Result Diagrams: 09/20/20 06:40 09/20/20 06:40 Labs: Laboratory Results - last 24 hr 09/20/20 09/20/20 09/20/20 06:40 06:40 06:40 WBC 5.9 RBC 4.59 Hgb 13.8 Hct 43.6 MCV 95.0 MCH 30.1 MCHC 31.7 L RDW Std Deviation 42.0 RDW Coeff of Daniel 12.1 Plt Count 252 MPV 8.8 Immature Gran % (Auto) 0.300 Neut % (Auto) 46.9 L Lymph % (Auto) 36.7 [place] % (Auto) 13.8 H Eos % (Auto) 2.0 Baso % (Auto) 0.3 Absolute Neuts (auto) 2.8 Absolute Lymphs (auto) 2.16 Nucleated RBC % 0 APTT 30.7 Sodium 138 Potassium 3.8 Chloride 103 Carbon Dioxide 32.0 Anion Gap 3 L BUN 17 Creatinine 1.03 H Estim Creat Clear Calc 31.29 Est GFR (MDRD) Af Amer 66 Est GFR (MDRD) Non-Af 55 L BUN/Creatinine Ratio 16.5 Glucose 113 H Calcium 9.0 TSH 2.67 Physical Exam Narrative Physical exam General: Alert, Oriented x3, Cooperative HEENT: Atraumatic, PERRLA, EOMI, Normocephalic Oral: No Gingival or Mucosal Lesions/ Ulcerations Neck: Supple, No JVD, Negative Carotid Bruits Lungs: Air entry diminished in bilateral lung bases. No crepitation/rhonchi Cardiovascular: Left subclavicular pacemaker. Regular paced rhythm, normal S1- S2, No murmurs Abdomen: Bowel Sounds Present, Soft, Non Tender, Non-Distended : No renal angle tenderness. No suprapubic tenderness. Extremities: No edema, Capillary Refill Less than 3 Seconds Skin: No rashes, No breakdown Musculoskeletal/spine: Tenderness present over T12 to lumbar spine and paraspinal muscle. Range of motion limited. Arthritis of hip and knee joints. Neurological: Cranial nerves II-XII grossly intact, Deep Tendon Reflexes 2+/4 and Symmetrical, Neuro grossly intact Psych/Mental Status: Normal Affect, Appropriate. Assessment & Plan Assessment/Plan (1) Compression fracture: (2) Intractable back pain: PLAN: This is a 80-year-old female admitted with intractable back pain progressively worsening for last 3 years after a fall. 1. Fall with fracture of superior endplate of L1 vertebra: CT individually reviewed and shows multilevel degenerative changes along with 10 to 20% loss of height of superior endplate of L1 vertebra. Patient is admitted on [facility] floor. I discussed with Dr. Tiwari and he agreed to see the patient. Patient last dose of Eliquis was 09/18/20. Eliquis is on hold. On pain management and muscle relaxant. 09/20: Scheduled for kyphoplasty tomorrow a.m. Eliquis on hold. Continue PT and OT evaluation and treatment. 2. Sick sinus syndrome, history of complete heart block status post pacemaker and chronic A. fib: Heart rate is controlled. 12-lead EKG from August 22, 2020 shows electronic atrial pacemaker, demand type, low voltage with poor RR wave progression. Continue rate control medications, daily. Patient follows Dr. Amado as an outpatient 3. Dyslipidemia: Continue statin. VTE prophylaxis: Hold Eliquis for anticipated kyphoplasty. Bilateral SCDs. Living will/advanced directive/end of life care: Patient does have living will or advanced directive. After discussion of benefits/risks procedures involved with full code, DNR CC arrest and DNR CC, the patient opted for DNR-CC Arrest with no intubation. Patient accompanied by her daughter, Jenny Patient does not want artificial life support including intubation, tube feed, ventilator and/chest compression, central venous catheter, vasopressor and DC shock if needed Total time spent in [id number] encounter in discussion of advanced directive 16 minutes. Charges/Coding Visit Charges Inpatient E&M: 47922 Subs Hosp L2
[2020-09-20 13:54] VITALS: BP 98/58; PULSE 84; RESP 16; TEMP 37.3; O2SAT 95
--- NOTE | 2020-09-20 14:17 | CASEMGMT ---
Pt screened with [facility] Palliative Care Screening Tool due to strata 3, pt did not meet criteria.
[2020-09-20 17:03] VITALS: BP 103/62; PULSE 85; RESP 16; TEMP 37.2; O2SAT 94
[2020-09-20] MEDS: 0.9% Saline Lock 10 ML Syringe IV ×2 (18:40→22:26)
[2020-09-20] MEDS: Ondansetron 4 MG/2 ML Vial IV (18:40)
[2020-09-20 22:14] VITALS: BP 103/62; PULSE 70; RESP 18; TEMP 36.9; O2SAT 100
[2020-09-20] MEDS: Metoclopramide 10 MG/2 ML Vial 5 MG IV (22:25)
[2020-09-20] MEDS: HYDROmorphone 0.5 MG/0.5 ML SYRINGE IV (22:26)
[2020-09-20] MEDS: Atorvastatin Calcium 10 MG Tablet PO (22:32)
[2020-09-20] MEDS: buPROPion (XL) 300 MG TABLET.XL PO (22:34)
[2020-09-20] MEDS: QUEtiapine 100 MG Tablet 200 MG PO (22:36)
[2020-09-20] MEDS: MELATONIN 3 MG TABLET PO (22:40)
[2020-09-21] VITALS (13 sets, daily range): BP systolic 98–155; BP diastolic 48–83; PULSE 69–75; RESP 16–18; TEMP 36.3–37; O2SAT 93–97; BMI 36.5
[2020-09-21] MEDS: Acetaminophen 325 MG Tablet 650 MG PO ×2 (01:45→20:06)
[2020-09-21] MEDS: oxyCODONE 5 MG Tablet PO (01:45)
[2020-09-21] MEDS: 0.9% Saline Lock 10 ML Syringe IV ×5 (02:56→20:20)
[2020-09-21] MEDS: HYDROmorphone 0.5 MG/0.5 ML SYRINGE IV ×2 (02:56→18:18)
[2020-09-21] MEDS: Ondansetron 4 MG/2 ML Vial IV ×2 (02:56→18:17)
[2020-09-21] MEDS: dilTIAZem 30 MG Tablet PO ×3 (06:09→20:20)
[2020-09-21] MEDS: Levothyroxine 75 MCG Tablet PO (06:09)
[2020-09-21] MEDS: Vancomycin IV 1,000 MG/200 ML BAG 200 MG IV (10:05)
--- NOTE | 2020-09-21 10:20 | RAD_ITS ---
PROCEDURE: Kyphoplasty. DATE OF EXAMINATION: 09/21/2020. INDICATION: Female, 80 years old. Chronic back pain. FLUOROSCOPY TIME (if supplied): (57 seconds) minutes/seconds. 5 fluoroscopic images were obtained. RAD/Lumbar Spine 2 or 3 Views IMPRESSION: Intraoperative imaging provided for kyphoplasty of the L1 vertebrae. Electronically Signed: Ramón Hyde MD at 12:59 EDT , Service support ,
[2020-09-21] MEDS: Bupivacaine Mpf 0.5% 30 ML VIAL (12:31)
--- NOTE | 2020-09-21 13:02 | PCM.PN.HOSP ---
Subjective Subjective Still with back pain. Inability to urinate and had to be straight cathed. No BM for a few days. Objective Data Objective Data Vital Signs: Vital Signs Temp Pulse Resp BP Pulse Ox 36.3 C L 70 16 124/68 H 94 09/21/20 12:46 09/21/20 13:00 09/21/20 13:00 09/21/20 13:00 09/21/20 13:00 Oxygen Flow Rate (L/min) 2 Oxygen Delivery Method Room Air Weight: 84.822 kg Body Mass Index (BMI) 36.5 Intake & Output: Intake and Output for Last 24 Hours 09/19/20 09/20/20 09/21/20 23:59 23:59 23:59 Intake Total 520 / 520 200 / 200 Output Total 500 / 500 500 / 500 Balance -300 / -300 Lab / Micro Data Result Diagrams: 09/20/20 06:40 09/20/20 06:40 Radiography Diagnostic Testing: Radiology Impression Lumbar Spine X-Ray 09/21/20 10:20 IMPRESSION: Intraoperative imaging provided for kyphoplasty of the L1 vertebrae. Electronically Signed: Ramón Hyde MD at 12:59 EDT , Service support , Physical Exam Const alert HEENT Head and Scalp: normocephalic Resp normal respiratory effort, no use of accessory muscles and clear to auscultation bilaterally Cardio regular rate, regular rhythm, S1 normal heart sound and S2 normal heart sound GI normal to inspection, nondistended, normoactive bowel sounds, soft to palpation, non-tender and non-distended Psych affect normal Assessment & Plan Assessment/Plan (1) Compression fracture of L1 lumbar vertebra: QUALIFIERS: Encounter type: initial encounter Qualified Code(s): S32.010A - Wedge compression fracture of first lumbar vertebra, initial encounter for closed fracture PLAN: 1. L1 compression fracture for kyphoplasty today. traumatic due to fall around 3 weeks ago. 25 OH d 29.9. Goal is 50. Start ergocalciferol 2. urinary retention new onset may be due to narcotics and/or constipation minimize narcotics bowel regimen PRN straight cath 3. chronic afib apixaban held for kyphoplasty on diltiazem 4. DC planning anticipate DC in 1-2 days to home with or w/o [facility] Charges/Coding Visit Charges Inpatient E&M: 67977 Subs Hosp L2
[2020-09-21] MEDS: Pantoprazole Sodium 40 MG Tablet PO (14:24)
[2020-09-21] MEDS: Magnesium Chloride 64 MG Delay Rel.Tablet 128 MG PO (14:24)
[2020-09-21] MEDS: levETIRAcetam 750 MG Tablet 1500 MG PO ×2 (14:24→20:19)
[2020-09-21] MEDS: buPROPion (XL) 150 MG TABLET.XL PO (14:25)
[2020-09-21] MEDS: Senna/Docusate Sodium 1 Tablet 2 TABLET PO ×2 (14:26→20:20)
--- NOTE | 2020-09-21 14:44 | CASEMGMT ---
ISMAEL WATERS in to pt room. Pt has had kyphoplasty. Pt states she does not feel she will need to go to SNF and would like to have HHC. Patient was provided a list of HHC providers including quality and resource use data and consistent with the patient?s preferred geographic region, medical needs, and insurance network. The patient?s preferred provider [facility]. Pt states if she should need O2 at home, she has a concentrator and portable tanks. Pt would like set up with [employer] as her previous supplier has gone out of business. ISMAEL WATERS called [facility] and left message with Jie wild, awaiting acceptance.
[2020-09-21] MEDS: Bisacodyl 5 MG Tablet PO (17:19)
[2020-09-21] MEDS: Ergocalciferol 1.25 MG (50, 000 UNIT) Capsule PO (17:19)
[2020-09-21] MEDS: Mag Hydrox/Al Hydrox/Simeth 30 ML UDC 15 ML PO (20:05)
[2020-09-21] MEDS: Baclofen 10 MG Tablet PO (20:05)
[2020-09-21] MEDS: Metoclopramide 10 MG/2 ML Vial 5 MG IV (20:05)
[2020-09-21] MEDS: Atorvastatin Calcium 10 MG Tablet PO (20:19)
[2020-09-21] MEDS: buPROPion (XL) 300 MG TABLET.XL PO (20:19)
[2020-09-21] MEDS: QUEtiapine 100 MG Tablet 200 MG PO (20:19)
[2020-09-22] VITALS (7 sets, daily range): BP systolic 116–132; BP diastolic 55–65; PULSE 71–96; RESP 16–18; TEMP 36.5–37.9; O2SAT 86–94
[2020-09-22] MEDS: Acetaminophen 325 MG Tablet 650 MG PO ×2 (02:16→09:01)
[2020-09-22] MEDS: Levothyroxine 75 MCG Tablet PO (05:27)
[2020-09-22] MEDS: dilTIAZem 30 MG Tablet PO ×2 (05:27→13:00)
[2020-09-22] MEDS: Baclofen 10 MG Tablet PO (09:01)
[2020-09-22] MEDS: Pantoprazole Sodium 40 MG Tablet PO (09:01)
[2020-09-22] MEDS: Senna/Docusate Sodium 1 Tablet 2 TABLET PO (09:01)
[2020-09-22] MEDS: levETIRAcetam 750 MG Tablet 1500 MG PO (09:01)
[2020-09-22] MEDS: buPROPion (XL) 150 MG TABLET.XL PO (09:02)
[2020-09-22] MEDS: Magnesium Chloride 64 MG Delay Rel.Tablet 128 MG PO (09:02)
--- NOTE | 2020-09-22 09:53 | PCM.DC ---
Discharge Instructions Diet Discharge Diet: Low fat / Low cholesterol Activity Discharge Activity: Return to Normal Activity Follow Up Care Test Results: Test results from this visit will be discussed in further detail at your follow-up appointment, if applicable. Discharge Plan Admission Admit Date/Time: 09/19/20 14:28 Attending Provider: Mo Weinstein Primary Care Provider: Mo Jameson Consulting Providers: Juan Tiwari Discharge Orders/Prescriptions Prescriptions: New acetaminophen [Tylenol] 325 mg Tablet 650 mg PO Q6H PRN PRN (Reason: Pain Score 1-10/Temp > 100.7 F) Qty: 1 RF: 0 Metamucil Fiber Singles 3.4 gram Powder In Packet 1 packet PO DAILY PRN PRN (Reason: Constipation) Qty: 0 RF: 0 bisacodyl [Dulcolax (bisacodyl)] 5 mg tablet,delayed release (DR/EC) 5 mg PO QHS 2 Days Qty: 2 RF: 0 ergocalciferol (vitamin D2) [Drisdol] 1,250 mcg (50,000 unit) capsule 1,250 mcg PO QWEEK Qty: 7 RF: 0 Continued cod liver oil capsule 1 cap PO BID RF: 0 apixaban 5 mg tablet 5 mg PO BID RF: 0 quetiapine 400 MG tablet 400 mg PO QHS RF: 0 lidocaine HCl 4 % adhesive patch,medicated 1 patch topical DAILY PRN (Reason: pain) Qty: 30 RF: 0 baclofen 10 mg Tablet 10 mg PO TID PRN (Reason: Pain) RF: 0 simvastatin 20 mg Tablet 20 mg PO QHS RF: 0 bupropion HCl 300 mg tablet extended release 24 hr 300 mg PO DAILY RF: 0 levetiracetam 500 mg tablet 1,500 mg PO BID RF: 0 calcium carbonate-vitamin D2 600 mg calcium- 200 unit Tablet 1 tab PO DAILY RF: 0 oxycodone 5 mg tablet 2.5 - 5 mg PO BID PRN (Reason: Pain) RF: 0 bupropion HCl 150 mg tablet extended release 24 hr 150 mg PO DAILY RF: 0 diltiazem HCl [Cardizem] 30 mg tablet 30 mg PO TID RF: 0 levothyroxine 75 mcg tablet 75 mcg PO DAILY RF: 0 Referrals / Follow Up: Mo Jameson MD [Primary Care Provider] - Within 2 Weeks Juan Tiwari MD [STAFF PHYSICIAN] - In 1 Week Disposition Disposition (needs filled in before D/C Order can be placed): Home Health Service
--- NOTE | 2020-09-22 10:09 | DS.PCM_ITS ---
Providers Date of Admission: 09/19/20 Primary Care Physician: Dr. Mo Jameson MD Consultations 09/19/20 14:51 Consult: Pain Management Routine Consulting Provider: Juan Tiwari Reason for Consult: L1 superior endplate fracture with loss of 10 to 20% height EMERGENT Consult: No MD Notified: Yes Date Notified: 09/19/20 Time Notified: 14:00 Method of Notification: Verbal Reason For Visit: FALL WITH L1 VERTEBRA FRACTURE Diagnosis Discharge Diagnosis (1) Compression fracture of L1 lumbar vertebra: Status: Acute Code(s): S32.010A - Wedge compression fracture of first lumbar vertebra, initial encounter for closed fracture Qualifiers: Encounter type: initial encounter Qualified Code(s): S32.010A - Wedge compression fracture of first lumbar vertebra, initial encounter for closed fracture Medications at Discharge Home Medications quetiapine 400 mg PO QHS 01/01/13 cod liver oil 1 cap PO BID 08/03/17 apixaban 5 mg tablet 5 mg PO BID tab 12/20/18 diltiazem HCl 30 mg tablet 30 mg PO TID 06/14/20 levothyroxine 75 mcg tablet 75 mcg PO DAILY 06/14/20 lidocaine HCl 1 patch TOPICAL DAILY PRN #30 ea 09/18/20 baclofen 10 mg PO TID PRN 09/19/20 bupropion HCl 150 mg PO DAILY 09/19/20 bupropion HCl 300 mg PO DAILY 09/19/20 calcium carbonate-vitamin D2 1 tab PO DAILY 09/19/20 levetiracetam 1,500 mg PO BID 09/19/20 oxycodone 2.5 - 5 mg PO BID PRN 09/19/20 simvastatin 20 mg PO QHS 09/19/20 acetaminophen [Tylenol] 650 mg PO Q6H PRN PRN #1 tab 09/22/20 bisacodyl [Dulcolax (bisacodyl)] 5 mg PO QHS 2 Days #2 tab 09/22/20 ergocalciferol (vitamin D2) [Drisdol] 1,250 mcg PO QWEEK #7 cap 09/22/20 psyllium husk (aspartame) [Metamucil Fiber Singles] 1 packet PO DAILY PRN PRN #0 ea 09/22/20 Hospital Course Procedures - (kyphoplasty) Summary of Care Provided Minutes Spent on Discharge: 32 Hospital Course: 80-year-old female whom fell and experienced back pain. Later, she was found to have a superior endplate L1 fracture on CT. Pain management was consulted and patient was taken for kyphoplasty on the second. Patient tolerated the procedure well. Patient is apixaban was held prior to this. Rocio ent stated her pain is better. Patient wishes to go home rather than somewhere for therapy. Patient will be discharged home with home health care. During her hospitalization is complicated by some constipation as well as some urinary retention. Urinary retention has since resolved. Patient still not had a bowel movement yet patient will be given instructions about medications that she can take [id number]. Physical Exam Const alert HEENT normocephalic Eyes PERRL Resp normal respiratory effort, no retractions, no use of accessory muscles and clear to auscultation bilaterally Cardio regular rate, regular rhythm, S1 normal heart sound and S2 normal heart sound GI normal to inspection, nondistended, normoactive bowel sounds, non-tender and non-distended Weight / BMI Weight Weight: 84.822 kg Body Mass Index (BMI) 36.5 ABG / Lab / Microbiology Data Result Diagrams: 09/20/20 06:40 09/20/20 06:40 Radiography Diagnostic Testing: Radiology Impression Lumbar Spine X-Ray 09/21/20 10:20 IMPRESSION: Intraoperative imaging provided for kyphoplasty of the L1 vertebrae. Electronically Signed: Ramón Hyde MD at 12:59 EDT , Service support , D/C Instructions Discharge Diet: Low fat / Low cholesterol Meaningful Use Info Meaningful Use Diagnoses (Choose all that apply): None applicable Discharge Plan Admission Admit Date/Time: 09/19/20 14:28 Attending Provider: Mo Weinstein Primary Care Provider: Mo Jameson Consulting Providers: Juan Tiwari Discharge Orders/Prescriptions Prescriptions: New acetaminophen [Tylenol] 325 mg Tablet 650 mg PO Q6H PRN PRN (Reason: Pain Score 1-10/Temp > 100.7 F) Qty: 1 RF: 0 Metamucil Fiber Singles 3.4 gram Powder In Packet 1 packet PO DAILY PRN PRN (Reason: Constipation) Qty: 0 RF: 0 bisacodyl [Dulcolax (bisacodyl)] 5 mg tablet,delayed release (DR/EC) 5 mg PO QHS 2 Days Qty: 2 RF: 0 ergocalciferol (vitamin D2) [Drisdol] 1,250 mcg (50,000 unit) capsule 1,250 mcg PO QWEEK Qty: 7 RF: 0 Continued cod liver oil capsule 1 cap PO BID RF: 0 apixaban 5 mg tablet 5 mg PO BID RF: 0 quetiapine 400 MG tablet 400 mg PO QHS RF: 0 lidocaine HCl 4 % adhesive patch,medicated 1 patch topical DAILY PRN (Reason: pain) Qty: 30 RF: 0 baclofen 10 mg Tablet 10 mg PO TID PRN (Reason: Pain) RF: 0 simvastatin 20 mg Tablet 20 mg PO QHS RF: 0 bupropion HCl 300 mg tablet extended release 24 hr 300 mg PO DAILY RF: 0 levetiracetam 500 mg tablet 1,500 mg PO BID RF: 0 calcium carbonate-vitamin D2 600 mg calcium- 200 unit Tablet 1 tab PO DAILY RF: 0 oxycodone 5 mg tablet 2.5 - 5 mg PO BID PRN (Reason: Pain) RF: 0 bupropion HCl 150 mg tablet extended release 24 hr 150 mg PO DAILY RF: 0 diltiazem HCl [Cardizem] 30 mg tablet 30 mg PO TID RF: 0 levothyroxine 75 mcg tablet 75 mcg PO DAILY RF: 0 Referrals / Follow Up: Juan Tiwari MD [STAFF PHYSICIAN] - In 1 Week Mo Jameson MD [Primary Care Provider] - Within 2 Weeks Disposition Disposition (needs filled in before D/C Order can be placed): Home Health Service Charges/Coding Visit Charges Inpatient E&M: 20034 Disch Hosp
--- NOTE | 2020-09-22 10:58 | CASEMGMT ---
WW script requested and placed on chart with green sheet to be faxed to [facility] once home oxygen testing completed. Antwon GUEVARA CM
[2020-09-22] MEDS: Lidocaine 5% Patch 1 PATCH TOPICAL (12:05)
[2020-09-22] MEDS: Mag Hydrox/Al Hydrox/Simeth 30 ML UDC 15 ML PO (12:05)
[2020-09-22] MEDS: oxyCODONE 5 MG Tablet PO (12:05)
[2020-09-22] MEDS: Magnesium Citrate 300 ML 150 ML PO (13:00)
== END 2020-09-22 14:00 | disposition home health service (06) | DRG 516 ==
LOC: ED 14:38 → MS3 14:44
PROVIDERS: Anesthesiology; Anesthesiology Pain Medicine; Admitting Provider Internal Medicine; Emergency Provider Emergency Medicine; PCP Family Medicine
PROC: 0QS03ZZ Reposition Lumbar Vertebra, Percutaneous Approach (ICD-10-PCS; principal; 2020-09-21 10:05)
DX: S32.010A Wedge compression fracture of first lumbar vertebra, initial encounter for closed fracture (principal); I44.2 Atrioventricular block, complete; I48.20 Chronic atrial fibrillation, unspecified; W19.XXXA Unspecified fall, initial encounter; E78.5 Hyperlipidemia, unspecified; E03.9 Hypothyroidism, unspecified; F32.9 Major depressive disorder, single episode, unspecified; I49.5 Sick sinus syndrome; G40.909 Epilepsy, unspecified, not intractable, without status epilepticus; Z79.01 Long term (current) use of anticoagulants; Z79.890 Hormone replacement therapy; Z66 Do not resuscitate; K59.00 Constipation, unspecified; R33.9 Retention of urine, unspecified; Z80.3 Family history of malignant neoplasm of breast; Z82.49 Family history of ischemic heart disease and other diseases of the circulatory system; Z88.0 Allergy status to penicillin; Z90.12 Acquired absence of left breast and nipple; Z90.49 Acquired absence of other specified parts of digestive tract; Z90.710 Acquired absence of both cervix and uterus; Z95.0 Presence of cardiac pacemaker; Z96.653 Presence of artificial knee joint, bilateral; Z98.42 Cataract extraction status, left eye
CPT/HCPCS: 36415; 72100; 72131; 76000; 80048; 81001; 84443; 85025; 85730; 93005; 96372; 97162; 97530; 99251; 99282; 99285; J7030; A4216; G0463; J2405

== ENCOUNTER 2020-09-25 13:27 | Observation (INO) | payer MEDICARE, SELFPAY ==
[2020-09-21 08:16] VITALS: BMI 36.5
[2020-09-25] VITALS (7 sets, daily range): BP systolic 97–144; BP diastolic 60–72; PULSE 70–73; RESP 16; TEMP 36.1–37.5; O2SAT 87–100; BMI 38.0; BMI 37.0
--- NOTE | 2020-09-25 13:50 | CT_ITS ---
STUDY: CT ABDOMEN AND PELVIS WITH CONTRAST REASON FOR EXAM: Female, 80 years old. Abdominal pain. Back pain. Recent kyphoplasty. RADIATION DOSAGE (If Supplied By Facility): CTDIvol = ( 16.365 ) mGy, DLP = ( 1068.41 ) mGycm TECHNIQUE: Transaxial images were obtained from the dome of the diaphragm to the symphysis pubis without oral contrast. IV 100mL Isovue-[id number] was administered. Sagittal and coronal images were reconstructed. Individualized dose optimization techniques were used for this CT. COMPARISON: Comparison is made with prior study dated 07/14/2017. FINDINGS: Minimal increased markings at the lung bases suggest some bibasilar atelectasis and/or mild scarring. Stable calcified granuloma in the left lower lobe. A dual-chamber pacemaker is seen. Normal liver. The patient is status post cholecystectomy. Normal spleen. Normal pancreas. Normal bilateral adrenal glands. Normal right kidney. Normal left kidney. There is a small hiatal hernia. Normal small intestine. There are scattered colonic diverticula consistent with diverticulosis. The patient is status post appendectomy. There is scattered atherosclerotic calcification of the abdominal aorta, without a demonstrated aneurysm. Normal inferior vena cava. Normal retroperitoneum. Normal urinary bladder. There is absence of the uterus consistent with a prior hysterectomy. Normal abdominal wall. There are diffuse degenerative changes of the visualized lumbar spine. The patient is status post vertebroplasty of the L1 vertebrae. Mild loss of height of the superior endplate. CT/Abdomen/Pelvis W IV Cont ONLY IMPRESSION: Minimal increased markings at the lung bases suggestive of bibasilar atelectasis and/or mild scarring. There is evidence of prior vertebroplasty of the L1 vertebrae. Electronically Signed: Ramón Hyde MD at 15:36 EDT , Service support ,
--- NOTE | 2020-09-25 13:52 | EDS_ITS ---
HPI History of Present Illness Chief Complaint: Back Narrative Narrative: 80-year-old female presenting with back and abdominal pain. Patient states that she has a compression fracture which was cemented last week. She states she has never been free of pain. She is unable to get around the house and unable to perform physical therapy with her daughter. Her daughter states that she has been vomiting. She also states that she has had a lot of constipation. Her first bowel movement since last week was yesterday. She denies black or bloody stools. The patient's daughter states that she has called around and has determined that in order for her mom to be placed in residential she will need medical clearance and admission to the hospital. [facility] Medical History Back pain due to injury Bleeding tendency Breast cancer Cancer CHF (congestive heart failure) Chronic pain Complete heart block CVA (cerebral vascular accident) Depression Difficulty swallowing Dyspnea Gastric wall thickening GERD (gastroesophageal reflux disease) Hiatal hernia History of sinoatrial node dysfunction History of stress test Hyperlipidemia Hypothyroidism Insomnia Irregular heart beat Mid back pain on right side Non-smoker Osteoarthritis Pacemaker Post-menopausal Presence of permanent cardiac pacemaker Seizure disorder Sick sinus syndrome Syncope Syncope and collapse Ulcer Vision loss of left eye Home Medications quetiapine 400 mg PO QHS 01/01/13 [History Last Taken 09/18/20] cod liver oil 1 cap PO BID 08/03/17 [History Last Taken 09/18/20] apixaban 5 mg tablet 5 mg PO BID tab 12/20/18 [History Last Taken 09/18/20] diltiazem HCl 30 mg tablet 30 mg PO TID 06/14/20 [History Last Taken Unknown] levothyroxine 75 mcg tablet 75 mcg PO DAILY 06/14/20 [History Last Taken 09/18/20] lidocaine HCl 1 patch TOPICAL DAILY PRN #30 ea 09/18/20 [Rx Last Taken 09/18/20] baclofen 10 mg PO TID PRN 09/19/20 [History Last Taken Unknown] bupropion HCl 150 mg PO DAILY 09/19/20 [History Last Taken 09/15/20] bupropion HCl 300 mg PO DAILY 09/19/20 [History Last Taken 09/18/20] calcium carbonate-vitamin D2 1 tab PO DAILY 09/19/20 [History Last Taken 09/18/20] levetiracetam 1,500 mg PO BID 09/19/20 [History Last Taken 09/18/20] oxycodone 2.5 - 5 mg PO BID PRN 09/19/20 [History Last Taken 09/18/20] simvastatin 20 mg PO QHS 09/19/20 [History Last Taken 09/18/20] acetaminophen [Tylenol] 650 mg PO Q6H PRN PRN #1 tab 09/22/20 [Rx Last Taken Unknown] bisacodyl [Dulcolax (bisacodyl)] 5 mg PO QHS 2 Days #2 tab 09/22/20 [Rx Last Taken Unknown] ergocalciferol (vitamin D2) [Drisdol] 1,250 mcg PO QWEEK #7 cap 09/22/20 [Rx Last Taken Unknown] psyllium husk (aspartame) [Metamucil Fiber Singles] 1 packet PO DAILY PRN PRN #0 ea 09/22/20 [Rx Last Taken Unknown] Allergy/AdvReac Type Severity Reaction Status Date / Time Penicillins Allergy Unknown Verified 09/25/20 13:27 rivaroxaban [From Xarelto] Allergy PT UNSURE Verified 09/25/20 13:27 OF REACTION Family History Daughter Breast cancer Father Heart disease Surgical History History of appendectomy History of bilateral carpal tunnel release History of bilateral knee replacement History of bladder suspension procedure History of cholecystectomy History of foot surgery History of hernia surgery History of hysterectomy History of laparoscopic cholecystectomy History of left cataract extraction History of left mastectomy S/P hysterectomy Status post biventricular cardiac pacemaker insertion Social History Smoking Status: Never smoker alcohol intake: never substance use type: does not use ROS ROS ED Constitutional Constitutional ED: Denies chills or fever(s) Eyes Eyes: Denies blurry vision or change in vision ENT ENT ED: Denies rhinorrhea or sore throat Cardiovascular Cardiovascular: Denies chest pain or palpitations Respiratory/Chest Respiratory/Chest: Denies cough or dyspnea Gastrointestinal Gastrointestinal: Reports abdominal pain, constipation, nausea and vomiting Genitourinary Genitourinary ED: Denies dysuria or hematuria Musculoskeletal Musculoskeletal: Reports back pain Integumentary Denies abscess or rash Neurologic Neurologic: Denies headache(s) or weakness EXAM Physical Exam Const Vital Signs: 09/25/20 13:28 Temperature 96.9 F L Temperature Source Temporal Pulse Rate 73 Respiratory Rate 16 Blood Pressure 121/72 H Blood Pressure Mean 88 Pulse Ox 100 Oxygen Delivery Method Room Air Positive well nourished General Appearance ED: NAD HEENT Reports moist mucous membranes Negative for trauma Eyes PERRL and EOMs intact bilaterally Resp normal respiratory effort and clear to auscultation bilaterally Cardio regular rate and regular rhythm GI GI Narrative: Generalized tenderness to palpation with mild distention. Abdomen is nonperitoneal. Extremity normal to inspection General Extremety ED: Negative for edema General Extremity: Negative for edema Neuro oriented x3 and CN's II-XII intact bilaterally Sensorium / Orientation: alert Psych mental status grossly normal Skin no rashes or lesions noted and no wounds MDM MDM MDM Narrative Medical decision making narrative: Patient presenting first placement in residential facility. She is having difficulty eating, drinking, getting around her house. Her daughter is having difficulty doing home PT with her. Blood work done today was unremarkable. Urinalysis is pending. Patient had CT abdomen pelvis with IV contrast that she was having some abdominal pain and constipation however this does not identify any acute intra-abdominal process. Patient was given morphine and Zofran for pain. Patient discussed with hospitalist for admission. Urinalysis will be followed upstairs. Patient stable for discharge at this time. Impression: 1. Intractable back pain 2. abdominal pain 3. constipation 4. Nausea/vomiting Lab Data Attestation: I reviewed the patient's lab results. Labs: Laboratory Results - last 24 hr 09/25/20 09/25/20 14:30 14:30 WBC 8.0 RBC 4.37 Hgb 13.2 Hct 40.7 MCV 93.1 MCH 30.2 MCHC 32.4 RDW Std Deviation 41.9 RDW Coeff of Daniel 12.0 Plt Count 236 MPV 9.2 Immature Gran % (Auto) 0.400 Neut % (Auto) 72.9 H Lymph % (Auto) 14.7 L [place] % (Auto) 11.7 H Eos % (Auto) 0.2 Baso % (Auto) 0.1 Absolute Neuts (auto) 5.8 Absolute Lymphs (auto) 1.18 Nucleated RBC % 0 Sodium 140 Potassium 3.6 Chloride 99 Carbon Dioxide 36.0 H Anion Gap 5 BUN 11 Creatinine 1.01 Estim Creat Clear Calc 31.91 Est GFR (MDRD) Af Amer 68 Est GFR (MDRD) Non-Af 56 L BUN/Creatinine Ratio 10.9 Glucose 109 H Calcium 9.5 Total Bilirubin 0.40 AST 20 ALT 44 Alkaline Phosphatase 149 H Total Protein 6.8 Albumin 2.9 L Globulin 3.9 Albumin/Globulin Ratio 0.7 L Lipase 71 L Radiography Diagnostic Testing: Radiology Impression Abdomen/Pelvis CT 09/25/20 13:50 IMPRESSION: Minimal increased markings at the lung bases suggestive of bibasilar atelectasis and/or mild scarring. There is evidence of prior vertebroplasty of the L1 vertebrae. Electronically Signed: Ramón Hyde MD at 15:36 EDT , Service support , Discharge Plan Triage Chief Complaint: Back ED Provider: Maury Ross Dx/Rx/DC Orders Prescriptions: No Action cod liver oil capsule 1 cap PO BID RF: 0 apixaban 5 mg tablet 5 mg PO BID RF: 0 quetiapine 400 MG tablet 400 mg PO QHS RF: 0 lidocaine HCl 4 % adhesive patch,medicated 1 patch topical DAILY PRN (Reason: pain) Qty: 30 RF: 0 baclofen 10 mg Tablet 10 mg PO TID PRN (Reason: Pain) RF: 0 simvastatin 20 mg Tablet 20 mg PO QHS RF: 0 bupropion HCl 300 mg tablet extended release 24 hr 300 mg PO DAILY RF: 0 levetiracetam 500 mg tablet 1,500 mg PO BID RF: 0 calcium carbonate-vitamin D2 600 mg calcium- 200 unit Tablet 1 tab PO DAILY RF: 0 oxycodone 5 mg tablet 2.5 - 5 mg PO BID PRN (Reason: Pain) RF: 0 bupropion HCl 150 mg tablet extended release 24 hr 150 mg PO DAILY RF: 0 acetaminophen [Tylenol] 325 mg Tablet 650 mg PO Q6H PRN PRN (Reason: Pain Score 1-10/Temp > 100.7 F) Qty: 1 RF: 0 Metamucil Fiber Singles 3.4 gram Powder In Packet 1 packet PO DAILY PRN PRN (Reason: Constipation) Qty: 0 RF: 0 bisacodyl [Dulcolax (bisacodyl)] 5 mg tablet,delayed release (DR/EC) 5 mg PO QHS 2 Days Qty: 2 RF: 0 ergocalciferol (vitamin D2) [Drisdol] 1,250 mcg (50,000 unit) capsule 1,250 mcg PO QWEEK Qty: 7 RF: 0 diltiazem HCl [Cardizem] 30 mg tablet 30 mg PO TID RF: 0 levothyroxine 75 mcg tablet 75 mcg PO DAILY RF: 0 Primary Care Provider: Mo Jameson
[2020-09-25] MEDS: Ondansetron 4 MG/2 ML Vial IV (14:42)
[2020-09-25] MEDS: Morphine 4 MG/ML Syringe IV ×2 (14:42→16:57)
[2020-09-25] MEDS: 0.9% Normal Saline 1,000 ML 1000 ML IV (14:42)
[2020-09-25 14:43] LABS: Absolute Lymphocyte Count 1.18 X10^3/uL (0.83-4.51); Absolute Neutrophil Count 5.8 X10^3/uL (2.0-7.7); Basophil# 0.01 X10^3/uL; Basophil% 0.1 % (0-1); Eosinophil# 0.02 X10^3/uL; Eosinophils% 0.2 % (0-5); Hematocrit 40.7 % (37-47); Hemoglobin 13.2 g/dL (12.0-15.0); Lymphocyte # 1.18 X10^3/ul (0.83-4.51); Lymphocyte % 14.7 % (19-41); Mean Corp Hgb Conc 32.4 g/dL (32-36); Mean Corpuscular Hgb 30.2 pg (27.0-32.0); Mean Corpuscular Volume 93.1 fL (81-99); Mean Platelet Vol. 9.2 fl (6.2-12.0); Monocyte# 0.94 X10^3/uL; Monocyte% 11.7 % (0-10); NRBC Flagged by Analyzer 0 % (0-5); Neutrophil # 5.83 X10^3/uL (2.7-7.7); Neutrophil % 72.9 % (47-70); Platelet Count 236 K/mm3 (150-450); RBC Distribution Width SD 41.9 fl (35.1-43.9); Red Blood Count 4.37 M/mm3 (4.2-5.4)
[2020-09-25 14:59] LABS: ALB/GLOB Ratio 0.7 RATIO (0.9-2.4); AST(SGOT) 20 U/L (15-37); Alanine Aminotransfer ALT/SGPT 44 U/L (13-56); Albumin, Serum 2.9 g/dL (3.2-5.0); Alkaline Phosphatase 149 U/L (45-117); Anion Gap 5 (5-15); BUN 11 mg/dL (7-18); BUN/Creat Ratio 10.9 RATIO (10-20); Calcium,Total 9.5 mg/dL (8.5-10.1); Chloride 99 mmol/L (98-107); Creatinine, Serum 1.01 mg/dL (0.55-1.02); EST Glomerular Filtration Rate 56 mL/min (>60); Est Glom Filt Rate - Afr Amer 68 mL/min (>60); Estimated Creatinine Clearance 31.91 ml/min; Globulin 3.9 g/dL (2.2-4.2); Glucose 109 mg/dL (74-106); Lipase 71 U/L (73-393); Potassium 3.6 mmol/L (3.5-5.1); Protein, Total 6.8 g/dL (6.4-8.2); Sodium Level 140 mmol/L (136-145)
--- NOTE | 2020-09-25 15:34 | RAD.NOTE ---
Patient extremely painful during transfer to CT table, used smooth planning aide board.
--- NOTE | 2020-09-25 15:54 | HP.PCM.HOS_ITS ---
[facility] - General General Date of Admission: 09/25/20 HPI Narrative DEVORA CHILDERS, is a 80 F with an extensive PMH as outlined who presents with a complaint of back pain. She was recently diagnosed with a compression fracture and had it cemented a week ago by pain managemetn. She was discharged home, but has not been doing well since. SHe has had severe back pain since, and has not been able to get around at home. She had not been able to perform her activities of daily living nor partake in physical therapy. SHe has also had some episodes of vomiting and complained of constipation; her first bowel movement in several days was today. Review of systems otherwise negative. Vitals on admission showed BP of 121/72, RI of 73, RR of 16 and temp of 96.9F. She was saturating at 100% on room air. CBC and BMP were unremarkable. Urinalysis was pending at time of review. She is being admitted for placement. [facility] Medical History Back pain due to injury Bleeding tendency Breast cancer Cancer CHF (congestive heart failure) Chronic pain Complete heart block CVA (cerebral vascular accident) Depression Difficulty swallowing Dyspnea Gastric wall thickening GERD (gastroesophageal reflux disease) Hiatal hernia History of sinoatrial node dysfunction History of stress test Hyperlipidemia Hypothyroidism Insomnia Irregular heart beat Mid back pain on right side Non-smoker Osteoarthritis Pacemaker Post-menopausal Presence of permanent cardiac pacemaker Seizure disorder Sick sinus syndrome Syncope Syncope and collapse Ulcer Vision loss of left eye Home Medications quetiapine 400 mg PO QHS 01/01/13 [History Last Taken 09/24/20] cod liver oil 1 cap PO BID 08/03/17 [History Last Taken 09/24/20] apixaban 5 mg tablet 5 mg PO BID tab 12/20/18 [History Last Taken 09/25/20] diltiazem HCl 30 mg tablet 30 mg PO TID 06/14/20 [History Last Taken 09/24/20] levothyroxine 75 mcg tablet 75 mcg PO DAILY 06/14/20 [History Last Taken 09/25] lidocaine HCl 1 patch TOPICAL DAILY PRN #30 ea 09/18/20 [Rx Last Taken 09/24/20] baclofen 10 mg PO TID PRN 09/19/20 [History Last Taken Unknown] bupropion HCl 150 mg PO DAILY 09/19/20 [History Last Taken 09/25/20] bupropion HCl 300 mg PO DAILY 09/19/20 [History Last Taken 09/24/20] calcium carbonate-vitamin D2 1 tab PO DAILY 09/19/20 [History Last Taken 09/24/20] levetiracetam 1,500 mg PO BID 09/19/20 [History Last Taken 09/25/20] oxycodone 2.5 - 5 mg PO BID PRN 09/19/20 [History Last Taken 09/25/20] simvastatin 20 mg PO QHS 09/19/20 [History Last Taken 09/24/20] ergocalciferol (vitamin D2) [Drisdol] 1,250 mcg PO QWEEK #7 cap 09/22/20 [Rx Last Taken 2 Weeks Ago ~09/11/20] Allergy/AdvReac Type Severity Reaction Status Date / Time Penicillins Allergy Unknown Verified 09/25/20 13:27 rivaroxaban [From Xarelto] Allergy PT UNSURE Verified 09/25/20 13:27 OF REACTION Family History Daughter Breast cancer Father Heart disease Surgical History History of appendectomy History of bilateral carpal tunnel release History of bilateral knee replacement History of bladder suspension procedure History of cholecystectomy History of foot surgery History of hernia surgery History of hysterectomy History of laparoscopic cholecystectomy History of left cataract extraction History of left mastectomy S/P hysterectomy Status post biventricular cardiac pacemaker insertion Social History Smoking Status: Never smoker alcohol intake: never substance use type: does not use ROS Review of Systems ROS Unobtainable: Denies due to encephalopathy Constitutional Constitutional: Reports malaise and weakness; Denies anorexia, change in weight, chills, fatigue or fever(s) Eyes Eyes: Denies discharge from eye(s) or double vision ENT HEENT: Denies abnormal hearing, dysphagia or headache(s) Cardiovascular Cardiovascular: Denies chest pain, dyspnea on exertion, lightheadedness, orthopnea or palpitations Respiratory/Chest Respiratory/Chest: Denies cough, dyspnea, productive cough, shortness of breath at rest or shortness of breath with exertion Gastrointestinal Gastrointestinal: Reports constipation and vomiting; Denies abdominal pain or nausea Genitourinary Genitourinary: Denies burning urination, difficulty urinating, dysuria or urinary frequency Musculoskeletal Musculoskeletal: Reports back pain and myalgias; Denies arthralgias or joint swelling Neurologic Neurologic: Denies abnormal gait, confusion, dizziness, focal weakness or headache(s) Psychiatric Psychiatric: Denies anxiety Vital Signs Vital Signs Vital Signs: 09/25/20 13:28 Temperature 96.9 F L Temperature Source Temporal Pulse Rate 73 Respiratory Rate 16 Blood Pressure 121/72 H Blood Pressure Mean 88 Pulse Ox 100 Oxygen Delivery Method Room Air Weight Weight: 195 lb Body Mass Index (BMI) 38.0 Physical Exam Const alert and oriented x3 General Appearance: cooperative HEENT normocephalic, head/scalp atraumatic and hearing grossly normal bilaterally HEENT Narrative: dry mucosa membranes Eyes PERRL, EOMs intact bilaterally and conjunctivae normal Neck no lymphadenopathy, supple and no JVD Resp normal respiratory effort, no retractions and clear to auscultation bilaterally GI soft to palpation, non-tender and non-distended Extremity normal to inspection, full ROM and no clubbing, cyanosis or edema Peripheral Pulses: Yes pulses 2+ throughout Skin no rashes or lesions noted Neuro oriented x3 and moves all extremities Sensorium / Orientation: awake and alert Psych affect normal Results Lab / Micro Data Result Diagrams: 09/25/20 14:30 09/25/20 14:30 Labs: Laboratory Results - last 24 hr 09/25/20 09/25/20 14:30 14:30 WBC 8.0 RBC 4.37 Hgb 13.2 Hct 40.7 MCV 93.1 MCH 30.2 MCHC 32.4 RDW Std Deviation 41.9 RDW Coeff of Daniel 12.0 Plt Count 236 MPV 9.2 Immature Gran % (Auto) 0.400 Neut % (Auto) 72.9 H Lymph % (Auto) 14.7 L [place] % (Auto) 11.7 H Eos % (Auto) 0.2 Baso % (Auto) 0.1 Absolute Neuts (auto) 5.8 Absolute Lymphs (auto) 1.18 Nucleated RBC % 0 Sodium 140 Potassium 3.6 Chloride 99 Carbon Dioxide 36.0 H Anion Gap 5 BUN 11 Creatinine 1.01 Estim Creat Clear Calc 31.91 Est GFR (MDRD) Af Amer 68 Est GFR (MDRD) Non-Af 56 L BUN/Creatinine Ratio 10.9 Glucose 109 H Calcium 9.5 Total Bilirubin 0.40 AST 20 ALT 44 Alkaline Phosphatase 149 H Total Protein 6.8 Albumin 2.9 L Globulin 3.9 Albumin/Globulin Ratio 0.7 L Lipase 71 L Radiology Impression Abdomen/Pelvis CT 09/25/20 13:50 IMPRESSION: Minimal increased markings at the lung bases suggestive of bibasilar atelectasis and/or mild scarring. There is evidence of prior vertebroplasty of the L1 vertebrae. Electronically Signed: Ramón Hyde MD at 15:36 EDT , Service support , Assessment & Plan Assessment/Plan (1) Compression fracture of L1 lumbar vertebra: QUALIFIERS: Encounter type: initial encounter Qualified Code(s): S32.010A - Wedge compression fracture of first lumbar vertebra, initial enc ounter for closed fracture (2) Intractable back pain: (3) Debility: PLAN: #Debility due to severe back pain from compression fracture * admit to med surg * consult PT/OT * IV morphine, PO oxycodone and PO tylenol for pain * fall precautions * #Hypothyroidism; on synthroid #Sick sinus syndrome s/p pacemaker * stable * #Hyperlipidemia: on statin #Afib: on eliquis and cardizem #Seizure disorder: on keppra DVT prophylaxis: not indicated as she is already on eliquis CODE STATUS: DNR CCA no intubation * Patient and daughter counseled extensively about different types of CODE STATUS including full code, DNR CCA and DNR CCA. Patient elects to be DNRCCA no intubation. Total [id number] time 16 minutes. Charges/Coding Visit Charges OBSV E&M: 88701 Initial observation care L3
[2020-09-25 16:02] LABS: Bacteria 0 SEEN /hpf (None Seen)
--- NOTE | 2020-09-25 16:09 | NURSING ---
MEDS SURG OBS KORAM INTRACTABLE BACK PAIN
[2020-09-25 16:14] LABS: Color, Urine Yellow (Yellow); Glucose, Dipstick Normal (Normal); Ketone-Dipstick Negative (Negative); Leukocyte Esterase-Dipstick Negative /ul (Negative); Nitrite-Dipstick Negative (Negative); Occult Blood-Urine 10 /ul (Negative); Protein-Dipstick Negative (Negative); Urine Bilirubin Dipstick Negative (Negative); Urine Clarity Clear (Clear); Urine Urobilinogen Normal (Normal)
[2020-09-25 16:20] LABS: Squamous Epithelial Cells - UA 0-5 SEEN /hpf (5-10); White Blood Cells 0-5 SEEN /hpf (0-5)
[2020-09-25 16:21] LABS: Mucous, Urine 2+ /hpf (<or=2+); Red Blood Cells-Urine 0-5 SEEN /hpf (0-5)
--- NOTE | 2020-09-25 16:30 | CASEMGMT ---
Received tc from [employer] Ivana Bowen stating she is seeing pt in the office today and she is sending her to the ER. States pt cannot care for herself at home, she needs more PT and is having difficulty swallowing. States pt is having severe pain as well. States pt needs placement. ISMAEL CM to follow for admission. No follow up tc made at this time.
[2020-09-25] MEDS: 0.9% Normal Saline 1,000 ML 125 ML IV (18:33)
[2020-09-25] MEDS: 0.9% Saline Lock 10 ML Syringe IV (18:33)
[2020-09-25] MEDS: Ergocalciferol 1.25 MG (50, 000 UNIT) Capsule PO (18:58)
[2020-09-25] MEDS: APIXABAN 5 MG TABLET PO (21:56)
[2020-09-25] MEDS: dilTIAZem 30 MG Tablet PO (21:56)
[2020-09-25] MEDS: levETIRAcetam 750 MG Tablet 1500 MG PO (21:56)
[2020-09-25] MEDS: QUEtiapine 100 MG Tablet 400 MG PO (21:57)
[2020-09-25] MEDS: Atorvastatin Calcium 10 MG Tablet PO (21:57)
[2020-09-25] MEDS: oxyCODONE 5 MG Tablet PO (22:03)
[2020-09-26] VITALS (11 sets, daily range): BP systolic 87–122; BP diastolic 48–72; PULSE 69–72; RESP 16–18; TEMP 36.7–37.1; O2SAT 88–97
[2020-09-26] MEDS: 0.9% Normal Saline 1,000 ML 125 ML IV (02:21)
[2020-09-26] MEDS: Levothyroxine 75 MCG Tablet PO (05:07)
[2020-09-26 06:13] LABS: Absolute Lymphocyte Count 1.68 X10^3/uL (0.83-4.51); Absolute Neutrophil Count 3.2 X10^3/uL (2.0-7.7); Basophil# 0.02 X10^3/uL; Basophil% 0.3 % (0-1); Eosinophil# 0.13 X10^3/uL; Eosinophils% 2.2 % (0-5); Hematocrit 33.2 % (37-47); Hemoglobin 10.8 g/dL (12.0-15.0); Lymphocyte # 1.68 X10^3/ul (0.83-4.51); Lymphocyte % 28.5 % (19-41); Mean Corp Hgb Conc 32.5 g/dL (32-36); Mean Corpuscular Hgb 30.9 pg (27.0-32.0); Mean Corpuscular Volume 94.9 fL (81-99); Mean Platelet Vol. 9.3 fl (6.2-12.0); Monocyte# 0.82 X10^3/uL; Monocyte% 13.9 % (0-10); NRBC Flagged by Analyzer 0 % (0-5); Neutrophil # 3.23 X10^3/uL (2.7-7.7); Neutrophil % 54.8 % (47-70); Platelet Count 195 K/mm3 (150-450); RBC Distribution Width CV 12.2 % (11.6-14.6); RBC Distribution Width SD 42.5 fl (35.1-43.9); White Blood Count 5.9 K/mm3 (4.4-11.0)
[2020-09-26 06:41] LABS: Anion Gap 5 (5-15); BUN 8 mg/dL (7-18); BUN/Creat Ratio 12.8 RATIO (10-20); Chloride 105 mmol/L (98-107); Creatinine, Serum 0.62 mg/dL (0.55-1.02); EST Glomerular Filtration Rate 98 mL/min (>60); Est Glom Filt Rate - Afr Amer 118 mL/min (>60); Estimated Creatinine Clearance 32.23 ml/min; Glucose 84 mg/dL (74-106); Potassium 3.5 mmol/L (3.5-5.1); Sodium Level 141 mmol/L (136-145)
[2020-09-26 07:13] LABS: Bacteria 0 SEEN /hpf (None Seen); Mucous, Urine 0 SEEN /hpf (<or=2+); Red Blood Cells-Urine 0 SEEN /hpf (0-5); White Blood Cells 0 SEEN /hpf (0-5)
--- NOTE | 2020-09-26 07:22 | NURSING ---
Straight cathed per MD order, drained 700 ml of cloudy urine. Sample sent to lab. Procedure well tolerated.
[2020-09-26 07:51] LABS: Color, Urine Yellow (Yellow); Glucose, Dipstick Normal (Normal); Ketone-Dipstick Negative (Negative); Leukocyte Esterase-Dipstick Negative /ul (Negative); Nitrite-Dipstick Negative (Negative); Occult Blood-Urine Negative /ul (Negative); Protein-Dipstick Negative (Negative); Urine Bilirubin Dipstick Negative (Negative); Urine Clarity Sl. Cloudy (Clear); Urine Urobilinogen Normal (Normal)
[2020-09-26 08:01] LABS: Squamous Epithelial Cells - UA 0-5 SEEN /hpf (5-10)
--- NOTE | 2020-09-26 09:31 | NURSING ---
O2 ECREASED TO 2L NC - WILL MONITOR
[2020-09-26] MEDS: Calcium Carb/Vitamin D 1 TABLET Tablet PO (09:32)
[2020-09-26] MEDS: APIXABAN 5 MG TABLET PO ×2 (09:32→22:38)
[2020-09-26] MEDS: levETIRAcetam 750 MG Tablet 1500 MG PO ×2 (09:32→22:38)
[2020-09-26] MEDS: oxyCODONE 5 MG Tablet PO ×3 (09:33→20:06)
[2020-09-26] MEDS: Acetaminophen 325 MG Tablet 650 MG PO ×2 (09:33→20:06)
[2020-09-26] MEDS: buPROPion (XL) 150 MG TABLET.XL PO (09:33)
[2020-09-26] MEDS: cycloBENZAPRine HCl 10 MG Tablet PO ×2 (09:33→17:36)
[2020-09-26] MEDS: buPROPion (XL) 300 MG TABLET.XL PO (09:33)
--- NOTE | 2020-09-26 09:45 | CASEMGMT ---
ISMAEL CM in to pt room. Pt sitting up in bed in no distress. Pt states that she was painful at home, her daughter was pushing her to do the therapy and she just couldn't do it. Pt states she called her doctor who recommend she come to the hospital to be placed in short term rehab. Pt states she does not yet know where she would like to go, but she wants to make sure her insurance covers it. Made her aware that the ELI Cortez will be in to speak with her. Pt denied further needs. Notified Carson BENITEZ.
--- NOTE | 2020-09-26 11:08 | PN.HOSP_ITS ---
Subjective Subjective Patient seen and examined. She says pain is much better today. Review of systems otherwise negative. SHe has remained hemodynamically stable. Objective Data Objective Data Vital Signs: Vital Signs Temp Pulse Resp BP Pulse Ox 98.0 F 70 18 117/60 97 09/26/20 09:29 09/26/20 10:00 09/26/20 09:29 09/26/20 09:29 09/26/20 09:29 Oxygen Flow Rate (L/min) 3 Oxygen Delivery Method Nasal Cannula Weight: 189 lb 13.088 oz Body Mass Index (BMI) 37.0 Intake & Output: Intake and Output for Last 24 Hours 09/24/20 09/25/20 09/26/20 23:59 23:59 23:59 Intake Total 1000 / 1000 1974 Output Total 900 / 900 Balance 1000 / 800 1075 / 1075 Lab / Micro Data Result Diagrams: 09/26/20 05:48 09/26/20 05:48 Labs: Laboratory Results - last 24 hr 09/25/20 09/25/20 09/25/20 14:30 14:30 15:55 WBC 8.0 RBC 4.37 Hgb 13.2 Hct 40.7 MCV 93.1 MCH 30.2 MCHC 32.4 RDW Std Deviation 41.9 RDW Coeff of Daniel 12.0 Plt Count 236 MPV 9.2 Immature Gran % (Auto) 0.400 Neut % (Auto) 72.9 H Lymph % (Auto) 14.7 L [place] % (Auto) 11.7 H Eos % (Auto) 0.2 Baso % (Auto) 0.1 Absolute Neuts (auto) 5.8 Absolute Lymphs (auto) 1.18 Nucleated RBC % 0 Sodium 140 Potassium 3.6 Chloride 99 Carbon Dioxide 36.0 H Anion Gap 5 BUN 11 Creatinine 1.01 Estim Creat Clear Calc 31.91 Est GFR (MDRD) Af Amer 68 Est GFR (MDRD) Non-Af 56 L BUN/Creatinine Ratio 10.9 Glucose 109 H Calcium 9.5 Total Bilirubin 0.40 AST 20 ALT 44 Alkaline Phosphatase 149 H Total Protein 6.8 Albumin 2.9 L Globulin 3.9 Albumin/Globulin Ratio 0.7 L Lipase 71 L Urine Color Yellow Urine Clarity Clear Urine pH 8.0 Ur Specific [place] 1.010 Urine Protein Negative Urine Glucose (UA) Normal Urine Ketones Negative Urine Occult Blood 10 H Urine Nitrite Negative Urine Bilirubin Negative Urine Urobilinogen Normal Ur Leukocyte Esterase Negative Urine RBC 0-5 SEEN Urine WBC 0-5 SEEN Ur Squamous Epith Cells 0-5 SEEN Urine Bacteria 0 SEEN Urine Mucus 2+ 09/26/20 09/26/20 09/26/20 05:48 05:48 06:55 WBC 5.9 RBC 3.50 L Hgb 10.8 L Hct 33.2 L MCV 94.9 MCH 30.9 MCHC 32.5 RDW Std Deviation 42.5 RDW Coeff of Daniel 12.2 Plt Count 195 MPV 9.3 Immature Gran % (Auto) 0.300 Neut % (Auto) 54.8 Lymph % (Auto) 28.5 [place] % (Auto) 13.9 H Eos % (Auto) 2.2 Baso % (Auto) 0.3 Absolute Neuts (auto) 3.2 Absolute Lymphs (auto) 1.68 Nucleated RBC % 0 Sodium 141 Potassium 3.5 Chloride 105 Carbon Dioxide 31.0 Anion Gap 5 BUN 8 Creatinine 0.62 Estim Creat Clear Calc 32.23 Est GFR (MDRD) Af Amer 118 Est GFR (MDRD) Non-Af 98 BUN/Creatinine Ratio 12.8 Glucose 84 Calcium 8.0 L Total Bilirubin AST ALT Alkaline Phosphatase Total Protein Albumin Globulin Albumin/Globulin Ratio Lipase Urine Color Yellow Urine Clarity Sl. Cloudy Urine pH 7.0 Ur Specific [place] 1.010 Urine Protein Negative Urine Glucose (UA) Normal Urine Ketones Negative Urine Occult Blood Negative Urine Nitrite Negative Urine Bilirubin Negative Urine Urobilinogen Normal Ur Leukocyte Esterase Negative Urine RBC 0 SEEN Urine WBC 0 SEEN Ur Squamous Epith Cells 0-5 SEEN Urine Bacteria 0 SEEN Urine Mucus 0 SEEN Radiography Diagnostic Testing: Radiology Impression Abdomen/Pelvis CT 09/25/20 13:50 IMPRESSION: Minimal increased markings at the lung bases suggestive of bibasilar atelectasis and/or mild scarring. There is evidence of prior vertebroplasty of the L1 vertebrae. Electronically Signed: Ramón Hyde MD at 15:36 EDT , Service support , Physical Exam Const alert, oriented x3 and no apparent distress General Appearance: cooperative HEENT normocephalic, head/scalp atraumatic, hearing grossly normal bilaterally and moist oral mucous membranes Head and Scalp: normocephalic Eyes PERRL, EOMs intact bilaterally and conjunctivae normal Neck no lymphadenopathy, supple and no JVD Resp normal respiratory effort, no retractions and clear to auscultation bilaterally Cardio regular rate, regular rhythm, S1 normal heart sound, S2 normal heart sound and no murmurs GI normal to inspection, nondistended, normoactive bowel sounds, soft to palpation, non-tender and non-distended Extremity normal to inspection, full ROM and no clubbing, cyanosis or edema Skin no rashes or lesions noted Neuro oriented x3 and moves all extremities Sensorium / Orientation: awake and alert Psych affect normal Assessment & Plan Assessment/Plan (1) Compression fracture of L1 lumbar vertebra: QUALIFIERS: Encounter type: initial encounter Qualified Code(s): S32.010A - Wedge compression fracture of first lumbar vertebra, initial encounter for closed fracture (2) Intractable back pain: (3) Debility: PLAN: #Debility due to severe back pain from compression fracture * pain is much better today. * IV morphine, PO oxycodone and PO tylenol for pain * fall precautions * PT/OT on board * #Hypothyroidism; on synthroid #Sick sinus syndrome s/p pacemaker * stable * #Hyperlipidemia: on statin #Afib: on eliquis and cardizem #Seizure disorder: on keppra DVT prophylaxis: not indicated as she is already on eliquis Disposition: awaiting placement. CODE STATUS: DNR CCA no intubation * Charges/Coding Visit Charges OBSV E&M: 50733 Subsequent observation care L2
--- NOTE | 2020-09-26 11:08 | CASEMGMT ---
Social Work Note SW received referral for SNF placement. SW in to speak with pt. SW introduced self and role at [facility]. Patient was provided a list of SNF providers including quality and resource use data and consistent with the patient?s preferred geographic region, medical needs, and insurance network. Pt states she used to work at [facility]. SW asked pt if she wanted a referral sent to [facility] and pt states well my daughter Jenny is coming in today, I will need to talk to her about it. SW asked pt if she knew about the time Jenny would be in and pt didn't. SW informed pt that this worker will keep an eye out for Jenny but asked pt if this worker could give Jenny a call this afternoon if she is not at [facility] by then. Pt gave this worker permission to call Jenny. SW explained referral process for SNF and that pt will need pre-cert. Pt states understanding. Plan: SNF pending acceptance and pre-cert Dana [employer], [employer]
[2020-09-26] MEDS: dilTIAZem 30 MG Tablet PO ×2 (15:20→22:38)
--- NOTE | 2020-09-26 15:24 | CASEMGMT ---
ISMAEL CM in to discuss BROWN form with patient. RN CM explained BROWN form, patient voiced understanding. Pt signed form and filed in chart. Pt provided with a copy of signed BROWN form. Patient had no further questions or concerns at this time.
--- NOTE | 2020-09-26 15:30 | CASEMGMT ---
Social Work Note Pt's daughter Jenny is present at [facility] and requesting to speak to this worker. SW in to speak with pt and Jenny. SW introduced self and role at [facility]. Jenny states first choice for SNF is [facility] and second choice is [facility]. SW explained referral process and that pt will need pre-cert. Pt and Jenny states understanding, both agreeable to plan. ELI placed a call to Tanya at [facility] and left message regarding referral. ELI Faxed referral. ELI received call from Tanya at [facility] stating she is able to accept pt and will submit for pre-cert. SW in to speak wt pt. SW updated pt on acceptance to [facility] pending pre-cert. SW asked pt about seizure diagnosis as this information is needed for PAS/RR. Pt states she was diagnosed with seizures after the age of 22. Plan: [facility] pending pre-cert Dana Bey RAILROAD CAR REPAIR SUPERVISOR, HIP HOP PERFORMERS
--- NOTE | 2020-09-26 16:53 | CHAPLAIN ---
Type of Pastoral Visit _x__ Initial Visit ___ Follow-up Visit ___ On-call Visit ___ General Patient Visit ___ Spiritual Assessment ___ Family Conference ___ Bereavement ___ Rapid Response ___ Code Blue ___ Other (describe below) Pastoral Care Referral From _x__ Patient ___ Family ___ Nurse ___ Physician ___ Frame Assembler ___ Machine Cementer ___ Other (describe below) Sacrament/Intervention _x__ Active listening ___ Anointing ___ Mormonism ___ Bereavement ___ Communion _x__ Dorina exploration ___ _x__ Life review _x__ Prayer ___ Reconciliation ___ Sacrament of Sick _x__ Supportive presence ___ Wedding ___ Other (describe below) Pastoral Comments
[2020-09-26] MEDS: Morphine 2 MG/ML Syringe IV ×2 (17:42→22:46)
[2020-09-26] MEDS: 0.9% Saline Lock 10 ML Syringe IV ×2 (17:43→22:46)
--- NOTE | 2020-09-26 18:54 | NURSING ---
PT PLACED ON O2 1L NC
[2020-09-26] MEDS: QUEtiapine 100 MG Tablet 400 MG PO (22:39)
[2020-09-26] MEDS: Atorvastatin Calcium 10 MG Tablet PO (22:39)
[2020-09-27] VITALS (11 sets, daily range): BP systolic 91–110; BP diastolic 40–73; PULSE 69–73; RESP 16–20; TEMP 36.6–37.2; O2SAT 1–97
[2020-09-27] MEDS: oxyCODONE 5 MG Tablet PO ×2 (03:46→19:11)
[2020-09-27] MEDS: cycloBENZAPRine HCl 10 MG Tablet PO (03:46)
[2020-09-27] MEDS: Acetaminophen 325 MG Tablet 650 MG PO ×3 (03:46→21:27)
[2020-09-27] MEDS: Levothyroxine 75 MCG Tablet PO (05:58)
--- NOTE | 2020-09-27 08:04 | NURSING ---
Dr. Ford in room with pt and this nurse. She is aware that pt's BP is low and that she had pain meds and flexeril earlier this morning.
[2020-09-27] MEDS: 0.9% Saline Lock 10 ML Syringe IV (08:21)
[2020-09-27] MEDS: APIXABAN 5 MG TABLET PO ×2 (11:04→21:23)
[2020-09-27] MEDS: buPROPion (XL) 150 MG TABLET.XL PO (11:04)
[2020-09-27] MEDS: levETIRAcetam 750 MG Tablet 1500 MG PO ×2 (11:05→21:23)
[2020-09-27] MEDS: buPROPion (XL) 300 MG TABLET.XL PO (11:05)
[2020-09-27] MEDS: Calcium Carb/Vitamin D 1 TABLET Tablet PO (11:05)
--- NOTE | 2020-09-27 12:43 | PN.HOSP_ITS ---
Subjective Subjective Patient seen and examined. She has no complaitns and feels well. REview of systems is otherwise negative. She has remained hemodynamically stable. Objective Data Objective Data Vital Signs: Vital Signs Temp Pulse Resp BP Pulse Ox 98.6 F 69 16 100/58 L 92 09/27/20 11:02 09/27/20 11:02 09/27/20 11:02 09/27/20 11:02 09/27/20 11:02 Oxygen Flow Rate (L/min) 2 Oxygen Delivery Method Nasal Cannula Weight: 189 lb 13.088 oz Body Mass Index (BMI) 37.0 Intake & Output: Intake and Output for Last 24 Hours 09/25/20 09/26/20 09/27/20 23:59 23:59 23:59 Intake Total 1000 / 1000 2535 / 2835 850 / 850 Output Total 1450 / 2450 1500 / 1500 Balance 1000 / 800 1085 / 385 -650 / -650 Lab / Micro Data Result Diagrams: 09/26/20 05:48 09/26/20 05:48 Physical Exam Const alert, oriented x3 and no apparent distress General Appearance: cooperative Exam Limitations: no limitations HEENT normocephalic, head/scalp atraumatic, hearing grossly normal bilaterally and moist oral mucous membranes Head and Scalp: normocephalic Eyes PERRL, EOMs intact bilaterally and conjunctivae normal Neck no lymphadenopathy, supple and no JVD Resp normal respiratory effort, no retractions and clear to auscultation bilaterally Cardio regular rate, regular rhythm, S1 normal heart sound, S2 normal heart sound and no murmurs GI normal to inspection, nondistended, normoactive bowel sounds, soft to palpation, non-tender and non-distended Extremity normal to inspection, full ROM and no clubbing, cyanosis or edema Peripheral Pulses: Yes pulses 2+ throughout Skin no rashes or lesions noted Neuro oriented x3 and moves all extremities Sensorium / Orientation: awake and alert Psych affect normal Assessment & Plan Assessment/Plan (1) Compression fracture of L1 lumbar vertebra: QUALIFIERS: Encounter type: initial encounter Qualified Code(s): S32.010A - Wedge compression fracture of first lumbar vertebra, initial encounter for closed fracture (2) Intractable back pain: (3) Debility: PLAN: #Debility due to severe back pain from compression fracture * pain has improved significantly * IV morphine, PO oxycodone and PO tylenol for pain * fall precautions * PT/OT on board * #Hypothyroidism; on synthroid #Sick sinus syndrome s/p pacemaker * stable * #Hyperlipidemia: on statin #Afib: on eliquis and cardizem #Seizure disorder: on keppra DVT prophylaxis: not indicated as she is already on eliquis Disposition: awaiting placement. CODE STATUS: DNR CCA no intubation * Charges/Coding Visit Charges Inpatient E&M: 35959 Subs Hosp L2
[2020-09-27] MEDS: Lidocaine 5% Patch 1 PATCH TOPICAL (13:08)
--- NOTE | 2020-09-27 14:19 | CASEMGMT ---
Social Work Note SW in to speak with pt and Jenny. SW updated Jenny that pt has been accepted to [facility] pending pre-cert. Jenny states understanding. ELI placed a call to Tanya at [facility], pre-cert is still pending. Plan: [facility] pending pre-cert Dana Bey RETREADER, NUMERICAL CONTROL NESTING OPERATOR
[2020-09-27] MEDS: dilTIAZem 30 MG Tablet PO (21:22)
[2020-09-27] MEDS: QUEtiapine 100 MG Tablet 400 MG PO (21:22)
[2020-09-27] MEDS: Atorvastatin Calcium 10 MG Tablet PO (21:24)
[2020-09-27] MEDS: Docusate Sodium 100 MG Capsule PO (21:27)
[2020-09-28 03:20] VITALS: BP 116/64; PULSE 70; RESP 16; TEMP 36.9; O2SAT 95
[2020-09-28] MEDS: Levothyroxine 75 MCG Tablet PO (05:12)
[2020-09-28] MEDS: dilTIAZem 30 MG Tablet PO (05:12)
[2020-09-28 09:32] VITALS: BP 99/62; PULSE 71; RESP 18; TEMP 36.4; O2SAT 94
[2020-09-28] MEDS: APIXABAN 5 MG TABLET PO (09:38)
[2020-09-28] MEDS: levETIRAcetam 750 MG Tablet 1500 MG PO (09:38)
[2020-09-28] MEDS: Docusate Sodium 100 MG Capsule PO (09:39)
[2020-09-28] MEDS: buPROPion (XL) 300 MG TABLET.XL PO (09:39)
[2020-09-28] MEDS: Calcium Carb/Vitamin D 1 TABLET Tablet PO (09:39)
[2020-09-28] MEDS: buPROPion (XL) 150 MG TABLET.XL PO (09:41)
--- NOTE | 2020-09-28 09:58 | CASEMGMT ---
Social Work Note SW received message from Tanya at [facility] stating pre-cert has been obtained, pt can discharge today. Physician updated. Plan: [facility] today Dana Bey MSW, WATER TREATMENT OPERATOR
--- NOTE | 2020-09-28 10:05 | PCM.DC.SUM ---
Providers Date of Admission: 09/25/20 Primary Care Physician: Dr. Mo Jameson MD Reason For Visit: INTRACTABLE BACK PAIN, DEBILITY Diagnosis Discharge Diagnosis (1) Compression fracture of L1 lumbar vertebra: Status: Acute Code(s): S32.010A - Wedge compression fracture of first lumbar vertebra, initial encounter for closed fracture Qualifiers: Encounter type: initial encounter Qualified Code(s): S32.010A - Wedge compression fracture of first lumbar vertebra, initial encounter for closed fracture (2) Intractable back pain: Status: Acute Code(s): M54.9 - Dorsalgia, unspecified (3) Debility: Status: Acute Code(s): R53.81 - Other malaise Medications at Discharge Home Medications quetiapine 400 mg PO QHS 01/01/13 cod liver oil 1 cap PO BID 08/03/17 apixaban 5 mg tablet 5 mg PO BID tab 12/20/18 diltiazem HCl 30 mg tablet 30 mg PO TID 06/14/20 levothyroxine 75 mcg tablet 75 mcg PO DAILY 06/14/20 lidocaine HCl 1 patch TOPICAL DAILY PRN #30 ea 09/18/20 baclofen 10 mg PO TID PRN 09/19/20 bupropion HCl 150 mg PO DAILY 09/19/20 bupropion HCl 300 mg PO DAILY 09/19/20 calcium carbonate-vitamin D2 1 tab PO DAILY 09/19/20 levetiracetam 1,500 mg PO BID 09/19/20 simvastatin 20 mg PO QHS 09/19/20 ergocalciferol (vitamin D2) [Drisdol] 1,250 mcg PO QWEEK #7 cap 09/22/20 oxycodone 5 mg PO Q4H PRN 3 Days #18 tab 09/28/20 Hospital Course Operations None Procedures None Summary of Care Provided Minutes Spent on Discharge: 35 Hospital Course: DEVORA CHILDERS, is a 80 F with an extensive PMH as outlined who presents with a complaint of back pain. She was recently diagnosed with a compression fracture and had it cemented a week ago by pain managemetn. She was discharged home, but has not been doing well since. SHe has had severe back pain since, and has not been able to get around at home. She had not been able to perform her activities of daily living nor partake in physical therapy. SHe has also had some episodes of vomiting and complained of constipation; her first bowel movement in several days was today. Review of systems otherwise negative. Vitals on admission showed BP of 121/72, CT of 73, RR of 16 and temp of 96.9F. She was saturating at 100% on room air. CBC and BMP were unremarkable. Urinalysis was negative for UTI. SHe was admitted and managed for debility due to back pain. She and family requested for placement. PT/OT were consulted and she was put on pain medication to help control pain. Hospital course was uncomplicated and pain was managed with pain meds. She was evaluated by PT/OT and determined to need skilled placement. She was discharged to SNF on 09/28/2020. She is to follow up with her PCP in 1-2 weeks. Patient was seen and examined prior to discharge. She had no complaints, and review of systems was otherwise negative. Labs and vitals reviewed. Home meds reviewed and reconciled. Physical Exam Const alert, oriented x3 and no apparent distress General Appearance: cooperative Exam Limitations: no limitations HEENT normocephalic, head/scalp atraumatic, hearing grossly normal bilaterally and moist oral mucous membranes Eyes PERRL, EOMs intact bilaterally and conjunctivae normal Neck no lymphadenopathy, supple and no JVD Resp normal respiratory effort, no retractions and clear to auscultation bilaterally Cardio regular rate, regular rhythm, S1 normal heart sound, S2 normal heart sound and no murmurs GI normal to inspection, nondistended, normoactive bowel sounds, soft to palpation, non-tender and non-distended Extremity normal to inspection, full ROM and no clubbing, cyanosis or edema Skin no rashes or lesions noted Neuro oriented x3 and moves all extremities Sensorium / Orientation: awake and alert Psych affect normal Weight / BMI Weight Weight: 189 lb 13.088 oz Body Mass Index (BMI) 37.0 ABG / Lab / Microbiology Data Result Diagrams: 09/26/20 05:48 09/26/20 05:48 D/C Instructions Discharge Diet: 2000 mg Sodium Diet Discharge Activity: Return to Normal Activity Weight Bearing Status: Weight bearing as tolerated Call your doctor if you observe: Uncontrolled pain Meaningful Use Info Meaningful Use Diagnoses (Choose all that apply): None applicable Discharge Plan Admission Admit Date/Time: 09/25/20 16:05 Primary Reason for Your Visit: intractable back pain Attending Provider: Bren Ford Primary Care Provider: Mo Jameson Instructions Patient Instructions: Common Thyroid Problems, Back Safety Bed, Complementary Care for Pain, Back Basics: A Healthy Spine Discharge Orders/Prescriptions Prescriptions: New oxycodone 5 mg tablet 5 mg PO Q4H PRN (Reason: pain) 3 Days Qty: 18 RF: 0 Continued cod liver oil capsule 1 cap PO BID RF: 0 apixaban 5 mg tablet 5 mg PO BID RF: 0 quetiapine 400 MG tablet 400 mg PO QHS RF: 0 lidocaine HCl 4 % adhesive patch,medicated 1 patch topical DAILY PRN (Reason: pain) Qty: 30 RF: 0 baclofen 10 mg Tablet 10 mg PO TID PRN (Reason: Pain) RF: 0 simvastatin 20 mg Tablet 20 mg PO QHS RF: 0 bupropion HCl 300 mg tablet extended release 24 hr 300 mg PO DAILY RF: 0 levetiracetam 500 mg tablet 1,500 mg PO BID RF: 0 calcium carbonate-vitamin D2 600 mg calcium- 200 unit Tablet 1 tab PO DAILY RF: 0 bupropion HCl 150 mg tablet extended release 24 hr 150 mg PO DAILY RF: 0 ergocalciferol (vitamin D2) [Drisdol] 1,250 mcg (50,000 unit) capsule 1,250 mcg PO QWEEK Qty: 7 RF: 0 diltiazem HCl [Cardizem] 30 mg tablet 30 mg PO TID RF: 0 levothyroxine 75 mcg tablet 75 mcg PO DAILY RF: 0 Discontinued oxycodone 5 mg tablet 2.5 - 5 mg PO BID PRN (Reason: Pain) RF: 0 Referrals / Follow Up: Mo Jameson MD [Primary Care Provider] - Within 1 Week Disposition Disposition (needs filled in before D/C Order can be placed): Long Term Facility Charges/Coding Visit Charges Inpatient E&M: 02904 Disch Hosp
[2020-09-28 10:23] VITALS: O2SAT 94
[2020-09-28] MEDS: oxyCODONE 5 MG Tablet PO (11:26)
[2020-09-28] MEDS: Acetaminophen 325 MG Tablet 650 MG PO (11:27)
--- NOTE | 2020-09-28 11:38 | PCM.TXEXTCAR ---
Diet 09/25/20 17:23 Diet: Cardiac - Heart Healthy Food consistency:: Easy to Chew Liquid Consistency:: Regular/Thin Is pt able to select menu?: Yes Diet Comments: Distant supervision, no straws, upright 30-60 minutes following meals Wound(s) Back: Wound Type: Puncture Problem/Diagnosis (1) Compression fracture of L1 lumbar vertebra: Status: Acute (2) Intractable back pain: Status: Acute (3) Debility: Status: Acute Allergies/Procedures Done in Hospital Allergies Penicillins Allergy (Verified 09/25/20 13:27) Unknown rivaroxaban [From Xarelto] Allergy (Verified 09/25/20 13:27) PT UNSURE OF REACTION Type of Care/Length of Stay Estimated LOS: Convalescent Care Less Than 30 days Type of Care Needed: Skilled Rehab Potential: Good Prognosis: Good Additional Orders/Day of Discharge Day of Discharge: 09/28/20 Discharge Plan Admission Admit Date/Time: 09/25/20 16:05 Primary Reason for Your Visit: intractable back pain Attending Provider: Bren Ford Primary Care Provider: Mo Jameson Instructions Patient Instructions: Common Thyroid Problems, Back Safety Bed, Complementary Care for Pain, Back Basics: A Healthy Spine Discharge Orders/Prescriptions Prescriptions: New oxycodone 5 mg tablet 5 mg PO Q4H PRN (Reason: pain) 3 Days Qty: 18 RF: 0 Continued cod liver oil capsule 1 cap PO BID RF: 0 apixaban 5 mg tablet 5 mg PO BID RF: 0 quetiapine 400 MG tablet 400 mg PO QHS RF: 0 lidocaine HCl 4 % adhesive patch,medicated 1 patch topical DAILY PRN (Reason: pain) Qty: 30 RF: 0 baclofen 10 mg Tablet 10 mg PO TID PRN (Reason: Pain) RF: 0 simvastatin 20 mg Tablet 20 mg PO QHS RF: 0 bupropion HCl 300 mg tablet extended release 24 hr 300 mg PO DAILY RF: 0 levetiracetam 500 mg tablet 1,500 mg PO BID RF: 0 calcium carbonate-vitamin D2 600 mg calcium- 200 unit Tablet 1 tab PO DAILY RF: 0 bupropion HCl 150 mg tablet extended release 24 hr 150 mg PO DAILY RF: 0 ergocalciferol (vitamin D2) [Drisdol] 1,250 mcg (50,000 unit) capsule 1,250 mcg PO QWEEK Qty: 7 RF: 0 diltiazem HCl [Cardizem] 30 mg tablet 30 mg PO TID RF: 0 levothyroxine 75 mcg tablet 75 mcg PO DAILY RF: 0 Discontinued oxycodone 5 mg tablet 2.5 - 5 mg PO BID PRN (Reason: Pain) RF: 0 Referrals / Follow Up: Mo Jameson MD [Primary Care Provider] - Within 1 Week Disposition Disposition (needs filled in before D/C Order can be placed): Senior Living Facility
--- NOTE | 2020-09-28 12:04 | PHA.DC.MR ---
Pharmacy Service has performed discharge medication reconciliation for this patient upon transfer to [facility]. Home Medications quetiapine 400 mg PO QHS 01/01/13 cod liver oil 1 cap PO BID 08/03/17 apixaban 5 mg tablet 5 mg PO BID tab 12/20/18 diltiazem HCl 30 mg tablet 30 mg PO TID 06/14/20 levothyroxine 75 mcg tablet 75 mcg PO DAILY 06/14/20 lidocaine HCl 1 patch TOPICAL DAILY PRN #30 ea 09/18/20 baclofen 10 mg PO TID PRN 09/19/20 bupropion HCl 150 mg PO DAILY 09/19/20 bupropion HCl 300 mg PO DAILY 09/19/20 calcium carbonate-vitamin D2 1 tab PO DAILY 09/19/20 levetiracetam 1,500 mg PO BID 09/19/20 simvastatin 20 mg PO QHS 09/19/20 ergocalciferol (vitamin D2) [Drisdol] 1,250 mcg PO QWEEK #7 cap 09/22/20 oxycodone 5 mg PO Q4H PRN 3 Days #18 tab 09/28/20 The patient's discharge medication list was reviewed for discrepancies and discrepancies were resolved.
--- NOTE | 2020-09-28 13:30 | CASEMGMT ---
Social Work Note ELI faxed completed discharge paperwork to [facility] including transfer to extended care facility, signed medication list, any scripts, COVID tool/test and PAS/RR,. Original in SNF Folder and copy on pt's chart. ELI completed PAS/RR in [facility]. Original in SNF folder and copy on pt's chart. ELI spoke with RN, pt can transport via wheelchair van. ELI accessed trip assist and arranged transportation via wheelchair van for 2:30pm. Transportation form completed and placed on SNF Folder and copy on pt's chart. ELI placed a call to Tanya at [facility] and updated her on transportation time. SW in to speak with pt. ELI informed pt that pre-cert was obtained and pt will discharge to [facility] today at 2:30pm. ELI informed pt that pt can transport via wheelchair van and that she will get a bill. Pt states understanding. ELI informed pt that this worker will call her daughter Jenny and update her. Pt states understanding, gave this worker permission to call her daughter Jenny to update. ELI placed a call to pt's daughter Jenny and updated her on approval, discharge and transportation time. ELI also updated Jenny that pt will get a bill for transportation via wheelchair van. Jenny states understanding. Plan: [facility] skilled with physician's transportation pt via wheelchair van at 2:30pm JOLLY Junior
[2020-09-28 13:48] VITALS: O2SAT 96
--- NOTE | 2020-09-28 15:01 | NURSING ---
Attempted to call report to [facility] but there was not answer.
--- NOTE | 2020-09-28 15:02 | NURSING ---
Attempted to call report to [facility] but there was no answer.
== END 2020-09-28 14:35 ==
LOC: ED 14:10 → MS3 16:23
PROVIDERS: Hospitalist; Admitting Provider Student in an Organized Health Care Education/Training Program; Emergency Provider Student in an Organized Health Care Education/Training Program; PCP Family Medicine; Visit Provider Student in an Organized Health Care Education/Training Program
DX: S32.010D Wedge compression fracture of first lumbar vertebra, subsequent encounter for fracture with routine healing (principal); R53.81 Other malaise; R11.2 Nausea with vomiting, unspecified; I50.9 Heart failure, unspecified; K59.00 Constipation, unspecified; K21.9 Gastro-esophageal reflux disease without esophagitis; F32.9 Major depressive disorder, single episode, unspecified; M19.90 Unspecified osteoarthritis, unspecified site; E78.5 Hyperlipidemia, unspecified; E03.9 Hypothyroidism, unspecified; K44.9 Diaphragmatic hernia without obstruction or gangrene; G40.909 Epilepsy, unspecified, not intractable, without status epilepticus; G89.29 Other chronic pain; Z79.899 Other long term (current) drug therapy; Z79.01 Long term (current) use of anticoagulants; Z95.0 Presence of cardiac pacemaker; X58.XXXD Exposure to other specified factors, subsequent encounter; I48.91 Unspecified atrial fibrillation
CPT/HCPCS: 36415; 74177; 80048; 80053; 81001; 83690; 85025; 87426; 92526; 92610; 96361; 96374; 96375; 96376; 97110; 97162; 97166; 97530; 97535; 99218; 99285; 99406; J7030; J7040; P9612; Q9967; A4216; G0378; J2405

== ENCOUNTER → 2021-01-08 15:34 | Outpatient (CLI) | payer MEDICARE, SELFPAY ==
--- NOTE | 2021-01-08 15:35 | RAD_ITS ---
HISTORY: osteoporosis/back pain, hx compression fracture lumbar. TECHNIQUE: XR Spine Thoracic 2 Views. # of images incl. paperwork: 2. COMPARISON: 11/05/2017. FINDINGS: VERTEBRAE: Chronic appearing loss of height at the inferior endplate of T12 with sclerosis and endplate change. Mild L1 compression fracture with vertebroplasty. VERTEBRAL ALIGNMENT: No significant anterior or posterior subluxation. INTERVERTEBRAL DISCS: Mild degenerative endplate changes with osteophytes. SOFT TISSUES: Pacemaker leads again noted. RAD/Thoracic Spine 2 Views IMPRESSION: Vertebroplasty of mild L1 compression fracture. Chronic appearing mild compression fracture of T12 with degenerative endplate changes of T12-L1. at 1036 Reported and signed by: Sarahy Marti MD Electronically Signed: Sarahy Marti MD at 10:35 EDT Tel , Service support ,
== END ==
PROVIDERS: PCP Family Medicine; Referring Provider Family Medicine; Visit Provider Family Medicine
DX: M54.9 Dorsalgia, unspecified (principal)
CPT/HCPCS: 72070; 87077; 87086; 87088; 87186

== ENCOUNTER → 2021-01-16 10:42 | Outpatient (CLI) | payer MEDICARE, SELFPAY ==
--- NOTE | 2021-01-16 10:53 | RAD_ITS ---
STUDY: X-RAY - RIGHT CLAVICLE REASON FOR EXAM: Female, 80 years old. PAIN TECHNIQUE: 2 view(s) of the clavicle. COMPARISON: None. FINDINGS: Normal clavicle. There is degenerative arthrosis of the acromioclavicular joint without inferior osseous prominence. Normal visualized sternoclavicular articulation. Normal visualized pulmonary apex. RAD/Clavicle IMPRESSION: Acromioclavicular joint arthrosis. Otherwise normal. Electronically Signed: Ramez Crain MD ([place]oks) at 12:22 EDT , Service support ,
--- NOTE | 2021-01-16 11:00 | RAD_ITS ---
STUDY: X-RAY - LEFT CLAVICLE REASON FOR EXAM: Female, 80 years old. PAIN TECHNIQUE: 2 view(s) of the clavicle. COMPARISON: None. FINDINGS: Normal clavicle. There is degenerative arthrosis of the acromioclavicular joint without inferior osseous prominence. Normal visualized sternoclavicular articulation. Cardiac conduction device leads partially visualized. RAD/Clavicle IMPRESSION: Acromioclavicular joint arthrosis, otherwise normal. Electronically Signed: Ramez Crain MD ([place]) at 12:22 EDT , Service support ,
== END ==
PROVIDERS: PCP Family Medicine; Referring Provider Family Medicine; Visit Provider Family Medicine
DX: M89.8X1 Other specified disorders of bone, shoulder (principal); M54.9 Dorsalgia, unspecified
CPT/HCPCS: 73000

== ENCOUNTER 2021-02-23 14:47 | Emergency (ER) | payer MEDICARE, SELFPAY ==
[2021-02-23 14:49] VITALS: BP 133/109; PULSE 73; RESP 17; TEMP 36.9; O2SAT 92; BMI 34.4
--- NOTE | 2021-02-23 15:12 | EKG12_ITS ---
Test Reason : CP Blood Pressure : / mmHG Vent. Rate : 070 BPM Atrial Rate : 072 BPM P-R Int : 216 ms QRS Dur : 102 ms QT Int : 430 ms P-R-T Axes : 213 -44 039 degrees QTc Int : 464 ms Atrial-paced rhythm with prolonged AV conduction Left axis deviation Nonspecific T wave abnormality Abnormal ECG Confirmed by JERAMIE MOLINA, HMEA ([id number]), video effects editor BRITT MARCUS ([id number]) on 02/25/2021 10:14:07 AM Referred By: WYATT Confirmed By:HEMA BOBO MD
[2021-02-23 15:30] VITALS: BP 119/82; PULSE 73; RESP 18; O2SAT 94
[2021-02-23 15:32] LABS: Absolute Lymphocyte Count 1.83 X10^3/uL (0.83-4.51); Basophil# 0.05 X10^3/uL; Basophil% 0.6 % (0-1); Eosinophil# 0.24 X10^3/uL; Eosinophils% 3.1 % (0-5); Hematocrit 42.9 % (37-47); Hemoglobin 13.7 g/dL (12.0-15.0); Lymphocyte # 1.83 X10^3/ul (0.83-4.51); Lymphocyte % 23.3 % (19-41); Mean Corp Hgb Conc 31.9 g/dL (32-36); Mean Corpuscular Hgb 29.8 pg (27.0-32.0); Mean Corpuscular Volume 93.3 fL (81-99); Mean Platelet Vol. 9.2 fl (6.2-12.0); Monocyte# 0.67 X10^3/uL; Monocyte% 8.5 % (0-10); NRBC Flagged by Analyzer 0 % (0-5); Neutrophil # 5.03 X10^3/uL (2.7-7.7); Neutrophil % 64.2 % (47-70); Platelet Count 316 K/mm3 (150-450); RBC Distribution Width CV 12.2 % (11.6-14.6); RBC Distribution Width SD 41.9 fl (35.1-43.9); White Blood Count 7.8 K/mm3 (4.4-11.0)
[2021-02-23 15:44] LABS: International Normalized Ratio 1.3; Prothrombin Time (Protime)PT. 15.2 SECONDS (11.7-14.9)
[2021-02-23 15:47] LABS: Anion Gap 5 (5-15); BUN 11 mg/dL (7-18); BUN/Creat Ratio 11.9 RATIO (10-20); Calcium,Total 9.6 mg/dL (8.5-10.1); Chloride 105 mmol/L (98-107); Creatinine, Serum 0.92 mg/dL (0.55-1.02); EST Glomerular Filtration Rate 62 mL/min (>60); Est Glom Filt Rate - Afr Amer 75 mL/min (>60); Estimated Creatinine Clearance 35.03 ml/min; Glucose 110 mg/dL (74-106); Potassium 3.4 mmol/L (3.5-5.1); Sodium Level 142 mmol/L (136-145); Troponin-I HS 6 pg/mL (3.0-54.0)
--- NOTE | 2021-02-23 15:50 | RAD_ITS ---
STUDY: X-RAY CHEST REASON FOR EXAM: Female, 80 years old. chest pain TECHNIQUE: Single frontal view of the chest. 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 Abandoned leads in the left chest unchanged. The lungs are clear and expanded. There is no demonstrated pleural abnormality. Normal size heart. Normal mediastinum and mirlande. Normal visualized pulmonary arteries. Normal visualized aortic arch and descending thoracic aorta. Normal visualized thoracic spine. Normal visualized ribs, clavicles, and shoulders. There is no demonstrated abnormality of the visualized soft tissue structures of the upper abdomen. RAD/Chest 1 View (Portable) IMPRESSION: No acute disease Electronically Signed: Anjel Whipple MD at 16:19 EST , Service support ,
--- NOTE | 2021-02-23 16:12 | ED.VIS.CHEST ---
HPI History of Present Illness Chief Complaint: Chest Pain Informant: patient Onset/Context/Timing Onset: Days Activity at onset: gradual Timing: Intermittent Quality: Positive for Sharp Location: Substernal Current Severity: Mild Maximum Severity: Mild Relieved By: Nothing Associated Symptoms: Positive for Acid Reflux; Negative for Nausea, Vomiting, Diaphoresis, Dyspnea, Cough, Fever and Lightheadedness Narrative Narrative: 80-year-old female with extensive past medical history has a pacemaker. Says since Thursday evening she has discomfort with swallowing. She is able to swallow. Does not take anything stuck. Denies any vomiting. It is just uncomfortable to swallow. She denies any exertional chest pain. No shortness of breath. No nausea or vomiting. States the pain is sharp and it primarily occurs when she attempts to swallow. History of reflux for which she is on medication. Patient has had upper endoscopy before around 5 years ago and states it was unremarkable. She is never had esophageal dilatation. Prior Similar Symptoms: No Recent Illness/Hospitalization: No CVD Risk Factors: Negative for Hypertension PE Risk Factors: Negative for Recent Travel/Surgery and Prior DVT or PE TAD Risk Factors: Negative for Marfan's Syndrome [facility] Medical History Back pain due to injury Bleeding tendency Breast cancer Cancer CHF (congestive heart failure) Chronic pain Complete heart block CVA (cerebral vascular accident) Depression Difficulty swallowing Dyspnea Gastric wall thickening GERD (gastroesophageal reflux disease) Hiatal hernia History of sinoatrial node dysfunction History of stress test Hyperlipidemia Hypothyroidism Insomnia Irregular heart beat Mid back pain on right side Non-smoker Osteoarthritis Pacemaker Post-menopausal Presence of permanent cardiac pacemaker Seizure disorder Sick sinus syndrome Syncope Syncope and collapse Ulcer Vision loss of left eye Home Medications quetiapine 400 mg PO QHS 01/01/13 [History Last Taken 09/24/20] cod liver oil 1 cap PO BID 08/03/17 [History Last Taken 09/24/20] apixaban 5 mg tablet 5 mg PO BID tab 12/20/18 [History Last Taken 09/25/20] diltiazem HCl 30 mg tablet 30 mg PO TID 06/14/20 [History Last Taken 09/24/20] levothyroxine 75 mcg tablet 75 mcg PO DAILY 06/14/20 [History Last Taken 09/25/20] lidocaine HCl 1 patch TOPICAL DAILY PRN #30 ea 09/18/20 [Rx Last Taken 09/24/20] baclofen 10 mg PO TID PRN 09/19/20 [History Last Taken Unknown] bupropion HCl 150 mg PO DAILY 09/19/20 [History Last Taken 09/25/20] bupropion HCl 300 mg PO DAILY 09/19/20 [History Last Taken 09/24/20] calcium carbonate-vitamin D2 1 tab PO DAILY 09/19/20 [History Last Taken 09/24/20] levetiracetam 1,500 mg PO BID 09/19/20 [History Last Taken 09/25/20] simvastatin 20 mg PO QHS 09/19/20 [History Last Taken 09/24/20] ergocalciferol (vitamin D2) [Drisdol] 1,250 mcg PO QWEEK #7 cap 09/22/20 [Rx Last Taken 2 Weeks Ago ~09/11/20] oxycodone 5 mg PO Q4H PRN 3 Days #18 tab 09/28/20 [Rx Last Taken Unknown] pantoprazole [Protonix] 20 mg PO DAILY #30 tab 02/23/21 [Rx Last Taken Unknown] Allergy/AdvReac Type Severity Reaction Status Date / Time Penicillins Allergy Unknown Verified 02/23/21 14:48 rivaroxaban [From Xarelto] Allergy PT UNSURE Verified 02/23/21 14:48 OF REACTION Family History Daughter Breast cancer Father Heart disease Surgical History History of appendectomy History of bilateral carpal tunnel release History of bilateral knee replacement History of bladder suspension procedure History of cholecystectomy History of foot surgery History of hernia surgery History of hysterectomy History of laparoscopic cholecystectomy History of left cataract extraction History of left mastectomy S/P hysterectomy Status post biventricular cardiac pacemaker insertion Social History Smoking Status: Never smoker alcohol intake: never substance use type: does not use ROS ROS ED ROS Narrative Denies recent illness. Review of Systems ROS Unobtainable: Denies due to encephalopathy Constitutional Constitutional ED: Denies fever(s) Eyes Eyes: Denies none ENT ENT ED: Denies ear pain Cardiovascular Cardiovascular: Reports chest pain; Denies palpitations Respiratory/Chest Respiratory/Chest: Denies dyspnea Gastrointestinal Gastrointestinal: Denies abdominal pain, diarrhea, nausea or vomiting Genitourinary Genitourinary ED: Denies dysuria Musculoskeletal Musculoskeletal: Denies myalgias Integumentary Denies rash Neurologic Neurologic: Denies headache(s) Psychiatric Psychiatric: Denies depression Endocrine Endocrinology: Denies polyuria Hematologic/Lymphatic Hematologic/Lymphatic: Denies easy bruising Allergic/Immunologic Allergic/Immunologic ED: Denies urticaria EXAM Physical Exam Narrative Exam Narrative: 8-year-old female no acute distress vital signs stable afebrile. Pulse ox 90% room air no hypoxia. H EENT exam unremarkable. Moist use membranes. Posterior pharynx normal. Patient was given a glass of water she swallowed without any difficulty. Neck nontender. Lungs clear to auscultation bilaterally. Heart regular rhythm no murmur. Abdomen soft nontender normal bowel sounds no peritoneal signs. Patient moving all 4 extremities. Calves are nontender without edema or cords. Neurologically she is awake and alert with no focal motor deficits. Const Vital Signs: 02/23/21 14:49 02/23/21 15:30 Temperature 98.5 F Temperature Source Oral Pulse Rate 73 73 Respiratory Rate 17 18 Blood Pressure 133/109 H 119/82 H Blood Pressure Mean 117 94 Pulse Ox 92 94 Oxygen Delivery Method Room Air Room Air Positive well nourished and well developed; Negative for obese, cachectic, contractures or unkempt General Appearance ED: well developed and NAD; Negative for unkempt, cachectic, contractures or pallor Nutritional Appearance: Negative for cachectic or obese HEENT Reports moist mucous membranes HEENT Narrative: Patient given a glass of water and can swallow easily. normocephalic and atraumatic; Negative for trauma or tenderness Eyes PERRL and EOMs intact bilaterally General Eye ED: Negative for pale conjunctiva or scleral icterus Neck no lymphadenopathy, supple and no JVD General: Negative for tenderness Chest Wall inspection of chest normal and palpation of chest normal Resp normal respiratory effort and clear to auscultation bilaterally Effort and Inspection: respiratory distress Auscultation: Negative for rales, rhonchi or wheezes Cardio regular rate, regular rhythm, S1 normal heart sound, S2 normal heart sound and no murmurs Rate: Negative for bradycardia or tachycardic Rhythm: abnormal rhythm GI normal to inspection, nondistended, normoactive bowel sounds, soft to palpation, non-tender, non-distended and no masses Back/Spine no CVA tenderness General Back: Negative for CVA tenderness Extremity normal to inspection General Extremety ED: Negative for edema or tenderness General Extremity: Negative for edema Neuro oriented x3 Sensorium / Orientation: awake, alert, oriented to person, oriented to place and oriented to time Motor Exam: strength 5/5 throughout Psych mental status grossly normal Appearance: Negative for unkempt Attitude: No agitated Mood & Affect: Negative for depressed or tearful Skin no rashes or lesions noted and no wounds General Skin Exam: Negative for jaundice or pallor Heart Score History: Slightly/Non-Suspicious ECG: Normal Age: >/= 65 years Risk Factors: 1 or 2 Risk Factors Troponin: </= Normal Limit Score: 3 MDM MDM MDM Narrative Medical decision making narrative: 80-year-old female with nonexertional noncardiac sounding chest pain with swallowing only. Exam benign. She did have a cardiac work-up done by nursing which is unremarkable. She will be given a GI cocktail and Pepcid and reevaluated. Repeat exam patient is doing well at 5:47 PM. Her symptoms have resolved after the GI cocktail and Pepcid. Clinically I think this is GI related and not cardiac at all. She will be discharged home on Protonix. Follow-up with her primary care physician. Lab Data Attestation: I reviewed the patient's lab results. Lab results narrative: CBC White count 7. Hemoglobin 13.7. PT/INR normal. Electrolytes unremarkable gap of 5 normal BUN and creatinine. Glucose of 110. Troponin . Labs: Laboratory Results - last 24 hr 02/23/21 02/23/21 02/23/21 15:15 15:15 15:15 WBC 7.8 RBC 4.60 Hgb 13.7 Hct 42.9 MCV 93.3 MCH 29.8 MCHC 31.9 L RDW Std Deviation 41.9 RDW Coeff of Daniel 12.2 Plt Count 316 MPV 9.2 Immature Gran % (Auto) 0.300 Neut % (Auto) 64.2 Lymph % (Auto) 23.3 [place] % (Auto) 8.5 Eos % (Auto) 3.1 Baso % (Auto) 0.6 Absolute Neuts (auto) 5.0 Absolute Lymphs (auto) 1.83 Nucleated RBC % 0 PT 15.2 H INR 1.3 Sodium 142 Potassium 3.4 L Chloride 105 Carbon Dioxide 32.0 Anion Gap 5 BUN 11 Creatinine 0.92 Estim Creat Clear Calc 35.03 Est GFR (MDRD) Af Amer 75 Est GFR (MDRD) Non-Af 62 BUN/Creatinine Ratio 11.9 Glucose 110 H Calcium 9.6 Troponin I High Sens 6 Radiography Chest X-Ray - ED: 1 View, Read by ED Physician, Normal, Heart, Lungs, Mediastinum, Bony Structures, No Acute Disease, Chronic Changes and Cardiomegaly Diagnostic Testing: Clinical Impression(s) from Imaging Studies Chest X-Ray 02/23/21 15:50 IMPRESSION: No acute disease Electronically Signed: Anjel Whipple MD at 16:19 EST , Service support , Portable chest x-ray shows a right-sided pacemaker otherwise unremarkable. Chronic changes. No acute process. Interpreted by myself. Single view. Rhythm Strip Rhythm Strip: Paced Rate: 70 Ectopy: None EKG Initial EKG: Attestation: I personally reviewed and interpreted this EKG as follows: Interpretation: No Acute Injury Pattern and Paced Comments: Paced rhythm rate of 70 no acute signs of PR or ischemia. Prior EKG tracings: not available for review Discharge Plan Triage Chief Complaint: Chest Pain ED Provider: German Martinez Dx/Rx/DC Orders Clinical Impression: Acid reflux Instructions: ED GERD (Adult) Prescriptions: New pantoprazole [Protonix] 20 mg tablet,delayed release (DR/EC) 20 mg PO DAILY Qty: 30 RF: 0 No Action cod liver oil capsule 1 cap PO BID RF: 0 apixaban 5 mg tablet 5 mg PO BID RF: 0 quetiapine 400 MG tablet 400 mg PO QHS RF: 0 lidocaine HCl 4 % adhesive patch,medicated 1 patch topical DAILY PRN (Reason: pain) Qty: 30 RF: 0 baclofen 10 mg Tablet 10 mg PO TID PRN (Reason: Pain) RF: 0 simvastatin 20 mg Tablet 20 mg PO QHS RF: 0 bupropion HCl 300 mg tablet extended release 24 hr 300 mg PO DAILY RF: 0 levetiracetam 500 mg tablet 1,500 mg PO BID RF: 0 calcium carbonate-vitamin D2 600 mg calcium- 200 unit Tablet 1 tab PO DAILY RF: 0 bupropion HCl 150 mg tablet extended release 24 hr 150 mg PO DAILY RF: 0 ergocalciferol (vitamin D2) [Drisdol] 1,250 mcg (50,000 unit) capsule 1,250 mcg PO QWEEK Qty: 7 RF: 0 oxycodone 5 mg tablet 5 mg PO Q4H PRN (Reason: pain) 3 Days Qty: 18 RF: 0 diltiazem HCl [Cardizem] 30 mg tablet 30 mg PO TID RF: 0 levothyroxine 75 mcg tablet 75 mcg PO DAILY RF: 0 Primary Care Provider: Mo Jameson Referrals: Mo Jameson MD [Primary Care Provider] - 1-2 Weeks Activity Restrictions/Additional Instructions: Your labs, chest x-ray and EKG today were unremarkable. Follow-up with your primary care physician in 1 to 2 weeks to ensure this is improving. You will be started on the medication Protonix which she will take daily which should resolve the symptoms. Disposition Disposition: Home, Self Care
[2021-02-23] MEDS: Famotidine 20 MG Tablet 40 MG PO (16:44)
[2021-02-23] MEDS: Mag Hydrox/Al Hydrox/Simeth 30 ML UDC PO (16:45)
[2021-02-23 17:55] VITALS: BP 121/89; PULSE 90; RESP 18; O2SAT 97
== END 2021-02-23 18:00 | disposition home or self-care (01) ==
PROVIDERS: Emergency Provider Emergency Medicine; PCP Family Medicine
DX: K21.9 Gastro-esophageal reflux disease without esophagitis (principal); Z95.0 Presence of cardiac pacemaker; E03.9 Hypothyroidism, unspecified; E78.5 Hyperlipidemia, unspecified; F32.A Depression, unspecified; G89.29 Other chronic pain; I50.9 Heart failure, unspecified; G47.00 Insomnia, unspecified; G40.909 Epilepsy, unspecified, not intractable, without status epilepticus; I44.2 Atrioventricular block, complete; K44.9 Diaphragmatic hernia without obstruction or gangrene; M19.90 Unspecified osteoarthritis, unspecified site; Z79.01 Long term (current) use of anticoagulants
CPT/HCPCS: 71045; 80048; 84484; 85025; 85610; 93005; 99285; A4216

== ENCOUNTER 2021-03-11 11:56 | Day surgery (SDC) | payer MEDICARE, SELFPAY ==
--- NOTE | 2021-03-11 | GASB_PTH ---
PATIENT: DEVORA CHILDERS LOC: EN U#:[id number] AGE/SX: 80/F ROOM: RE03/11/[address]: Dr. Ariel Ruggiero MD : 1940 BED: DIS: 03/11/2021 SPEC #: [id number] RECD: 03/11/21 14:58 STATUS: FRANCES REQ #: [id number] KATHARINA: 03/11/21 00:[address]: Ariel Ruggiero DEPT: SURGICAL PATHOLOGY RECD BY: Mamie Quintero ENTERED: 03/12/21 08:36 SP TYPE: Gastric Bx OTHR DR: Dr. Mo Jameson MD Tissues: A - Gastric mucous membrane B - Esophageal mucous membrane Procedures: Special Stain Group II Surgery Specimen Level IV Alcian Blue/PAS (control) HEADER OPERATION: EGD ([facility] [place]) PRE-OP DIAGNOSIS: Dysphagia TISSUE SUBMITTED: A ? Antrum biopsy for H. pylori/path, B ? Distal esophagus biopsy MICROSCOPIC DIAGNOSIS A. Gastric antrum, biopsy: Mild chronic inflammation. See comment. B. Distal esophagus, biopsy: Fragments of gastric mucosa with chronic inflammation. No evidence of goblet cell metaplasia. See comment. AM:kwasi 03/13/2021 COMMENT A. The results of immunohistochemistry for Helicobacter pylori will be reported separately ([id number]). B. Alcian blue/PAS stain with matched control supports the above diagnosis. MICROSCOPIC DESCRIPTION Slides are reviewed. GROSS DESCRIPTION A - Received in fixative is one container labeled with the patient's name and designated antrum biopsy. The specimen consists of one irregular fragment of light kauffman soft tissue that measures 0.7 x 0.2 x 0.1 cm. The specimen is totally submitted in one cassette. B - Received in fixative is one container labeled with the patient's name and designated distal esophagus biopsy. The specimen consists of one irregular fragment of light kauffman soft tissue that measures 0.8 x 0.2 x 0.1 cm. The specimen is totally submitted in one cassette. / AM:kwasi 03/12/21 TC:3 CPT: 72031 x2
--- NOTE | 2021-03-11 12:03 | PCM.HP.BLA ---
History and Physical Date of Admission: 03/11/21 HISTORY AND PHYSICAL ? Alda Sharpe 1940 ? REFERRING PHYSICIAN: Mo Jameson MD ? CHIEF COMPLAINT: GERD ? HPI: The patient is a 80 year old female referred for endoscopy. Alda notes pain with swallowing. Occasionally she has noted radiation of discomfort into her chest, not worsened with exertion-states occurs with swallowing only. Symptoms aggravated by drinking tea. Patient presented to [facility] ED for these complaints. She had EKG which showed no acute changes. She was given a GI cocktail which improved her symptoms and pain was felt by ED physician to be noncardiac in nature. Patient taking pantoprazole with some improvement. ? Patient denies any change in bowel habits, weight changes, blood in stools, black tarry stools or abdominal pain. Denies family history of colon issues. Patient has a previous history of colon polyps. She was evaluated by Dr. Ruggiero on 07/03/20 with plans to schedule a surveillance colonoscopy, but patient has since decided she does not want to proceed with bowel prep and colonoscopy at this time. She states this again today and is interested in EGD only. ? Patient's past medical history is significant for seizures, pacemaker in place, history of hiatal hernia repair x 2. Patient follows with Dr. Mo Jameson in primary care and Dr. Amado in cardiology. Patient is maintained on Eliquis and cod liver oil/ ? Patient denies problems with sedation in the past. ? PAST MEDICAL HISTORY PAST MEDICAL HISTORY Diagnosis Date ? Arthritis ? ? Cancer (HCC) ? ? left breast & uterine ? Chronic constipation ? ? Early satiety ? ? Epigastric pain ? ? GERD (gastroesophageal reflux disease) ? ? Hiatal hernia ? ? Hypercholesteremia ? ? Hypothyroid ? ? Kidney stones ? ? Leg swelling ? ? Macular degeneration ? ? Major depressive disorder, recurrent episode (HCC) ? ? Polyarthritis ? ? Pulmonary embolism (HCC) ? ? Seizures (HCC) ? ? Skin cancer ? ? Sleep apnea ? ? ? PAST SURGICAL HISTORY PAST SURGICAL HISTORY Procedure Laterality Date ? ANKLE ? ? ? orif - left ? APPENDECTOMY ? ? ? CARPAL TUNNEL ? ? ? bilateral ? CATARACT EXTRACTION HX ? ? ? left ? CHOLECYSTECTOMY ? ? ? EGD ? 04/30/2015 ? with 48 hour ph probe ? FOOT SURGERY HX Bilateral 1959 ? HIATAL HERNIA REPAIR HX ? ? ? x 2 ? HYSTERECTOMY HX ? 1963 ? LAP, REVISION NEAL FUNDOPLASTY ? ? ? MASTECTOMY HX ? 1994 ? left ? PACEMAKER (PM) Right ? ? [place] ? PAST SURGICAL HISTORY OF Left ? ? macular degen ? PORT ACCESS_[place] ? ? ? [place] ANESTH,TOTAL KNEE ARTHROPLASTY ? ? ? bilateral - right x 3 ? SLING OPER STRES INCONTINENCE ? ? ? x 5 ? TOTAL KNEE REPLACEMENT Bilateral ? CURRENT MEDICATIONS Current Outpatient Medications Medication Sig ? levothyroxine (SYNTHROID) 75 mcg tablet Take 75 mcg by mouth once daily. ? dilTIAZem (CARDIZEM) 30 mg tablet Take 1 tablet by mouth three times daily. ? buPROPion XL (WELLBUTRIN XL) 300 mg 24 hr tablet Take 300 mg by mouth once daily. ? Cod Liver Oil oil Take by mouth. ? ELIQUIS 5 mg tab tab(s) Take 5 mg by mouth twice daily. ? ? buPROPion XL (WELLBUTRIN XL) 150 mg 24 hr tablet Take 150 mg by mouth once daily. ? ? ergocalciferol, vitamin D2, (DRISDOL) 50,000 unit capsule Take 50,000 Units by mouth once each week. ? folic acid-B complex & C no.17 5 mg tab Take by mouth. ? calcium carbonate 500 mg calcium (1,250 mg) chewable tablet Take 1 tablet by mouth twice daily. ? levETIRAcetam (KEPPRA) 500 mg tablet Take 1,500 mg by mouth twice daily. ? QUEtiapine (SEROQUEL) 400 mg tablet Take 400 mg by mouth daily at bedtime. ? simvastatin (ZOCOR) 20 mg tablet Take 20 mg by mouth daily at bedtime. ? magnesium citrate solution Take 296 mL by mouth as needed. ? LORazepam (ATIVAN) 1 mg tablet (Patient not taking: Reported on 03/04/2021) ? naltrexone (TREXAN) 50 mg tablet ? ? Baicalin-Catechin 250 mg cap Take by mouth. ? Fluocinolone Acetonide 0.01 % sham Apply to affected area. ? hydrochlorothiazide (HYDRODIURIL, ESIDRIX) 25 mg tablet Take 25 mg by mouth once daily. ? levothyroxine (SYNTHROID) 50 mcg tablet Take 50 mcg by mouth daily before breakfast. ? pantoprazole (PROTONIX) 40 mg tablet Take 40 mg by mouth once daily. (Patient not taking: Reported on 03/04/2021 ) ? selenium 200 mcg cap Take 1 capsule by mouth once daily. ? No current facility-administered medications for this visit. ? ? ALLERGIES: Oxycodone-Acetaminophen, Penicillins, and Xarelto [Rivaroxaban] ? PERSONAL HISTORY: SOCIAL HISTORY Social History ? Tobacco Use ? Smoking status: Never Smoker ? Smokeless tobacco: Never Used Substance Use Topics ? Alcohol use: No ? Drug use: No ? FAMILY HISTORY: FAMILY HISTORY FAMILY HISTORY Problem Relation Age of Onset ? Blood Disease Mother ? ? post deliver of child ? other (polio) Mother ? ? COPD Father ? ? Diabetes Father ? ? Coronary Artery Disease Father ? ? Heart Father ? ? Alcohol/Drug Father ? ? Hypertension Father ? ? Heart Maternal Grandmother ? ? Hypertension Maternal Grandmother ? ? Heart Maternal Grandfather ? ? PA ? Hypertension Maternal Grandfather ? ? Heart Paternal Grandfather ? ? Breast Cancer Daughter ? ? ? REVIEW OF SYMPTOMS: The review of systems data was entered by the nurse and reviewed by me ? Nursing Notes: Chen Lin LPN 03/05/2021 10:27 AM Signed REVIEW OF SYSTEMS: General: The patient denies fatigue, notes weight loss, denies weight gain, denies feeling hot, and denies feelings of cold. Eyes: The patient denies glaucoma, denies eye injury/surgery, wears glasses or contacts. Ear/Nose/Throat: The patient denies allergies, denies hayfever, denies ear infections, and denies bloody noses. Cardiovascular: The patient denies chest pain, denies heart disease, denies high blood pressure,denies cardiac stent, denies prior heart attack, notes irregular heart beat, notes high cholesterol, denies poor circulation, denies heart failure, other cardiac issues, denies claudication, denies cold feet, denies peripheral arterial stent. Respiratory: The patient denies tuberculosis, denies pneumonia, denies frequent cough, denies pulmonary embolism, denies shortness of breath, and denies coughing up blood. Gastrointestinal: The patient notes difficulty swallowing, notes acid reflux, denies ulcers, denies vomiting, denies jaundice/hepatitis, denies gallbladder problems, denies black or tarry stools, denies hemorrhoids, denies bleeding from rectum, denies diverticulitis, denies constipation, denies diarrhea, denies loss of stool control, and denies hernias. Kidney/Bladder: The patient denies kidney stones, denies urine infections, and denies bloody urine. Skin: The patient denies a history of skin cancer, denies bleeding/changing moles, and denies a history of skin rash. Neurologic: The patient denies a history of epilepsy/convulsions, denies headaches, denies head/spinal injuries, and denies stroke/TIA. Psychiatric: The patient denies psychiatric medications, notes depression, and denies voices, denies substance abuse. Endocrine: The patient notes thyroid disorders, denies diabetes, and denies hormonal problems. Hematologic: The patient denies a history of bruising, denies bleeding, and denies anemia, denies blood clots. Infections: The patient denies a history of measles and mumps, denies rheumatic fever, and denies sexually transmitted diseases. Musculoskeletal: The patient notes back pain/injury, notes back problems, denies sciatica, denies knee/foot trouble, notes arthritis, or denies gout. ? ? When was patient's last Mammogram screening? Unknown ? Last Colonoscopy: 2016 ? Chen Lin LPN I have confirmed and edited as necessary, the PFSH and ROS obtained by others. Chelsi Gibson PA-C ? PHYSICAL EXAMINATION: ? General: The patient is 80 year old female, well nourished, well hydrated in no acute distress. The patient is oriented to time, place, and person. ? VITALS: Pulse 92, temperature 36.4 ?C (97.5 ?F), height 152.4 cm (5'), weight 77.7 kg (171 lb 3.2 oz), SpO2 90 %. Body mass index is 33.44 kg/m?. ? HEENT: Normal cephalic, ataumatic, pupils are equally round, sclera are anicteric, mucous membranes are moist, oropharynx is clear. Neck has no masses, asymmetry or lymphadenopathy. ? Respiratory: Clear to auscultation and percussion. Normal respiratory excursion and pattern. ? Cardiac: Examination is regular rate and rhythm. Normal S1/S2 ? Abdominal exam: Soft, nontender, with no palpable masses. No hepatosplenomegaly. No palpable hernias. ? Extremities: no clubbing, cyanosis or edema. No adenopathy. ? LABORATORY VALUES: As Noted ? RADIOLOGIC STUDIES: As Noted ? ? Assessment IMPRESSION: dysphagia ? PLAN: I have reviewed my findings with the surgeon. Will plan for upper endoscopy. Patient is also due for colonoscopy as discussed previously with Dr. Ruggiero, but she declines at this time and wishes to proceed with EGD only. We discussed the risks and benefits of the planned endoscopy. I have informed the patient that complications can occur including failure to complete the endoscopy and perforation. The patient had the opportunity to ask questions concerning the planned endoscopy. My staff has also explained the procedure to the patient in understandable terms and has given the patient printed material concerning the procedure. The patient freely consents to surgery. ? The patient was offered a surgery/procedure at a [facility] facility. I have counseled the patient regarding the risk of exposure to and/or potential harm posed by the COVID-19 virus with having a surgery/procedure at this time versus the risk of? delaying the surgery/procedure. It is not possible to know either the risk of delaying the surgery or procedure or chance of getting an infection with perfect accuracy, but a joint decision was made between the patient and myself?to proceed at this time with endoscopy. ? Request faxed to acquisitions analyst for cardiac clearance and permission to hold anticoagulation for procedure ? The patient has medical comorbidities for which we will plan for the procedure to be performed under Mon[facility]esthetic [facility]. ? ? ? Diagnoses: (R13.10) Dysphagia, unspecified type (primary encounter diagnosis) (Z95.0) Pacemaker ? Consultation requested by Dr. Jameson for an opinion regarding dysphagia. My final recommendations will be communicated back to the requesting physician by way of shared Medical record or letter to requesting physician via [place] mail. ? FRANSICO Van I have re-examined the patient. There are no clinical changes since date of exam.
[2021-03-11 12:23] VITALS: BP 117/67; PULSE 83; RESP 20; TEMP 36.5; O2SAT 94; BMI 33.1
[2021-03-11] MEDS: Lactated Ringers 1,000 ML 15 ML IV (12:40)
--- NOTE | 2021-03-11 13:30 | IMM_PTH ---
PATIENT: DEVORA CHILDERS LOC: EN U#:[id number] AGE/SX: 80/F ROOM: RE03/11/[address]: Dr. Ariel Ruggiero MD : 1940 BED: DIS: 03/11/2021 SPEC #: [id number] RECD: 03/12/21 11:01 STATUS: FRANCES REQ #: [id number] KATHARINA: 03/11/21 13:[address]: Ariel Ruggiero DEPT: IMMUNOHISTOCHEMISTRY RECD BY: Darlene Silvestre ENTERED: 03/12/21 11:01 SP TYPE: IMMUNO OTHR DR: Dr. Mo Jameson MD Tissues: A - Stomach, NOS Procedures: H Pylori (initial) PHYSICIAN & INSTITUTION [place] [id number] SPECIMEN INFORMATION: Tissue Source: A ? Antrum biopsy Clinical Info: Dysphagia Specimen Number: [id number] CPT code: 45677 METHODOLOGY: Deparaffinized sections of prefer/formalin-fixed tissue or PAP/DQ stained slides are incubated with monoclonal/polyclonal antibodies/oligonucleotide probes. Localization is made via biotin free immunoperoxidase method. Appropriate controls are performed and reacted as expected. Results on target cell population are indicated in the following table: RESULTS: ANTIBODY / CLONE RESULT Block A H Pylori (polyclonal) negative These tests were developed and their performance characteristics determined by [facility]. They may not have been cleared or approved by the U.S. Food and Drug Administration. The FDA has determined that such clearance or approval is not necessary. INTERPRETATION: A. Antrum biopsy: Negative for Helicobacter pylori organisms. AM:kwasi 03/13/2021
[2021-03-11 13:40] VITALS: BP 108/63; BP 117/67; PULSE 72; RESP 16; TEMP 36; O2SAT 92
--- NOTE | 2021-03-11 13:40 | OP.EGD_ITS ---
Patient Name: Alda Sharpe Procedure Date: 03/11/2021 1:23 PM Date of : 1940 Age: 80 Procedure: Upper GI endoscopy Indications: Dysphagia Providers: Ariel Ruggiero MD Medicines: See the Anesthesia note for documentation of the administered medications Patient Profile: This is an 80 year old female. Refer to note in patient chart for documentation of history and physical. Complications: No immediate complications. Estimated blood loss: Minimal. Procedure: Pre-Anesthesia Assessment: - Prior to the procedure, a History and Physical was performed, and patient medications and allergies were reviewed. The patient's tolerance of previous anesthesia was also reviewed. The risks and benefits of the procedure and the sedation options and risks were discussed with the patient. All questions were answered, and informed consent was obtained. Prior Anticoagulants: The patient has taken no previous anticoagulant or antiplatelet agents. ASA Grade Assessment: III - A patient with severe systemic disease. After reviewing the risks and benefits, the patient was deemed in satisfactory condition to undergo the procedure. After obtaining informed consent, the endoscope was passed under direct vision. Throughout the procedure, the patient's blood pressure, pulse, and oxygen saturations were monitored continuously. The gastroscope was introduced through the mouth, and advanced to the second part of duodenum. The upper GI endoscopy was accomplished without difficulty. The patient tolerated the procedure well. Scope In: 1:31:35 PM Scope Out: 1:34:21 PM Total Procedure Duration Time 0 hours 2 minutes 46 seconds Findings: The Z-line was regular and was found 37 cm from the incisors. Biopsies were taken with a cold forceps for histology. Diffuse mildly erythematous mucosa without bleeding was found in the prepyloric region of the stomach. Biopsies were taken with a cold forceps for Helicobacter pylori testing. The examined duodenum was normal. No biopsies or other specimens were collected for this exam. Impression: - Z-line regular, 37 cm from the incisors. Biopsied. - Erythematous mucosa in the prepyloric region of the stomach. Biopsied. - Normal examined duodenum. No specimens collected. Recommendation: - Discharge patient to home. - Resume previous diet. - Continue present medications. - Await pathology results. - Repeat upper endoscopy PRN for surveillance. - Return to physician mailroom assistant in 1 week. Procedure Code(s): --- Professional --- 26722, Esophagogastroduodenoscopy, flexible, transoral; with biopsy, single or multiple Diagnosis Code(s): --- Professional --- K31.89, Other diseases of stomach and duodenum R13.10, Dysphagia, unspecified CPT copyright 2017 [employer]. All rights reserved. The codes documented in this report are preliminary and upon conductor symphonic orchestra review may be revised to meet current compliance requirements. MD Ariel Amaya MD 03/11/2021 1:40:03 PM This report has been signed electronically. Number of Addenda: 0 Note Initiated On: 03/11/2021 1:23 PM
--- NOTE | 2021-03-11 13:41 | OP.CCLET_ITS ---
03/11/2021 Mo Jameson [address] [place] [address] Re : Upper GI endoscopy procedure for Alda Sharpe Dear Dr. Jameson This procedure was performed on Thursday, March 11, 2021. My impressions and recommendations are as follows: Impressions : - Z-line regular, 37 cm from the incisors. Biopsied. - Erythematous mucosa in the prepyloric region of the stomach. Biopsied. - Normal examined duodenum. No specimens collected. Recommendations : - Discharge patient to home. - Resume previous diet. - Continue present medications. - Await pathology results. - Repeat upper endoscopy PRN for surveillance. - Return to physician budget assistant in 1 week. My findings are described in the full procedure note, which is enclosed. If I can be of further assistance, please feel free to contact me at Doctor phone number(s): , Work: . Sincerely, MD Ariel Amaya MD 03/11/2021 1:40:03 PM This report has been signed electronically.
[2021-03-11 13:45] VITALS: BP 117/67; BP 123/61; PULSE 70; RESP 16; O2SAT 93
[2021-03-11 13:51] VITALS: BP 117/67; BP 133/68; PULSE 71; RESP 16; O2SAT 95
[2021-03-11 13:55] VITALS: BP 117/67; BP 121/67; PULSE 74; RESP 16; O2SAT 98
[2021-03-11 14:01] VITALS: BP 117/67; BP 133/65; PULSE 70; RESP 16; TEMP 36; O2SAT 92
== END 2021-03-11 14:26 | disposition home or self-care (01) ==
LOC: EN 11:57 → AC 11:58
PROVIDERS: PCP Family Medicine; Referring Provider Family Medicine; Visit Provider Surgery
PROC: 0DJ08ZZ Inspection of Upper Intestinal Tract, Via Natural or Artificial Opening Endoscopic (ICD-10-PCS; CPT 43235; principal; 2021-03-11 13:25)
DX: R13.10 Dysphagia, unspecified (principal); K31.89 Other diseases of stomach and duodenum; Z86.010 Personal history of colon polyps; Z95.0 Presence of cardiac pacemaker; Z79.01 Long term (current) use of anticoagulants; K21.9 Gastro-esophageal reflux disease without esophagitis; E78.00 Pure hypercholesterolemia, unspecified; E03.9 Hypothyroidism, unspecified; G47.30 Sleep apnea, unspecified; M19.90 Unspecified osteoarthritis, unspecified site; Z63.72 Alcoholism and drug addiction in family; Z80.3 Family history of malignant neoplasm of breast; Z82.49 Family history of ischemic heart disease and other diseases of the circulatory system; Z85.828 Personal history of other malignant neoplasm of skin; Z86.711 Personal history of pulmonary embolism; Z83.3 Family history of diabetes mellitus; Z88.0 Allergy status to penicillin; Z90.49 Acquired absence of other specified parts of digestive tract; Z87.442 Personal history of urinary calculi; Z96.653 Presence of artificial knee joint, bilateral
CPT/HCPCS: 43239; 88305; 88313; 88342; J7120; J2405

== ENCOUNTER 2021-08-21 16:30 | Outpatient (RCR) | payer MEDICARE, SELFPAY ==
--- NOTE | 2021-06-19 15:32 | HP.PTEVAL ---
Patient's Visit Information DEVORA CHILDERS is a 81 year old F referred to Physical Therapy by Dr. Mo Jameson MD with a diagnosis of LUMBAR DDD/CHRONIC PAIN ,OSTEOPROSIS. Date of Evaluation: 06/19/21 Physical Therapist: Angel Ricci, PT, Cert MDT, OCS - Visit Plan Frequency: 2x /Week Duration: 4 Weeks Plan: PRECAUTION: PACEMAKER ,OSETEOPORSIS ,H/O COMPRESSION FRACTURES. PT INTERVETIONS POSTURAL EX'S ,DLS ,LE STRENGTHENING ,US AND FUNCTIONAL STRENGTHENING - Subjective This 81 y/o female presents to physical therapy with lumbar pain. Patient has had compression fractures of lumbar last year ,also had kyphoplasty last year by Dr Fish. Patient has h/o osteoporosis. Patient pain located symmetrical lumbar . Patient states she is depressed , recently lost family members. Aggravating factors extended walking , standing ,bending and light lifting. Alleviating factors icy hot,HEAT. Patient was provided with pain MEDS. Óscar paresthesia/tingling, although has occasional tingling in feet at night. Patient has had x-rays DDD in past. Coughing/sneezing-.Jos/bladder -. Patient sleeping good at night. Patient has h/o no trauma ,but has h/o falls last year. No abnormal night pain. Patient affects QOL and function. Patient has PACEMAKER, bilateral TKR. SOCIAL: lives alone apartment - Pain Bilateral Back Pain Intensity (Out of 10): 8 Pain Intensity Range: 10 - Objective POSTURE: mild forward posture ,rounded shoulder head forward mod thoracic kyphosis ,scoliosis leaning forward. GAIT: reciprocal pattern slow marko forward posture anf trunk flexed slightly unsteady. NEURO: denies paresthesia/tingling ,reflexes L4-5,L5-S1 1/3. SYMMTRIES: align. PALPTATION: tender LS. FLEXABLITY: hamstrings mild tight. MMT: quads/hams 4-/5,hip flexion 3+/5 ankle 4/5. LUMBAR ROM: flexion mod loss ,extension mod loss, side glides mod loss - Special Tests L/S Slump test left side: Positive L/S Slump test right side: Positive L/S Left Straight Leg Raise: Negative L/S Right Straight Leg Raise: Negative - Balance/Special Test Scores Oswestry Low Back Score: 29 - Goals Goal 1:: I with HEP for back Goal Time Frame: 4-6 Weeks Goal 2:: Patient demonstrate 50 % improvement with increase function and less pain Goal Time Frame: 4-6 Weeks Goal 3:: Patient to improve strength quads/hams 4/5 ,and hip flexion 4-/5 to improve gait. Goal Time Frame: 4-6 Weeks Goal 4:: Patient to improve back oswestry score by 5 points to improve function and QOL. Goal Time Frame: 4-6 Weeks Goal 5:: Patient to improve quality of gait and standing with less pain to improve ADL's Goal Time Frame: 4-6 Weeks - Rehabilitation Potential Physical Therapy Diagnosis: This patient has lumbar and thoracic pain with DDD and h/o compression fractures with osteoporosis with weakness ,pain with ROM ,postural deficits thus will benefit from skilled PT Rehabilitation Potential: Good - Anticipated Interventions Patient/Client Instruction: Educate patient on: Condition, Plan of Care For the Purpose of:: To decrease pain, To increase ROM, To improve muscle performance and motor function, To improve ability to perform ADL's, To increase tolerance to activity/condition/position, To improve performance and independence with ADL's, To improve ability of physical actions for home/community/work/leisure, To increase flexibility/ROM, To reduce risk of recurrence, To improve tolerance to ADL's Therapeutic Exercise to Include: Strength training, Power training, Endurance training, Body mechanics, Postural training, Dynamic Lumbar Stabilization Comment: BLE For the Purpose of:: To decrease pain, To increase ROM, To improve muscle performance and motor function, To improve ability to perform ADL's, To increase tolerance to activity/condition/position, To improve ability of physical actions for home/community/work/leisure, To improve health of tissue, To decrease soft tissue restriction, To prevent re-injury Thermo therapy (hot pack): Yes Ultrasound (thermal/non thermal): Yes For the Purpose of:: To decrease pain, To improve nutrient delivery to tissue, To increase oxygenation perfusion, To improve health of tissue, To decrease soft tissue restriction Thank you for the opportunity to evaluate your patient. For Medicare and Medicare HMO plans, please review the plan of care and approve it. It will need to be FAXED BACK to us at [phone] for Medicare purposes. For Medicare only, by signing this I certify the plan of care. Please let me know if there are questions or concerns regarding this plan of care. Physician Signature: Date:
--- NOTE | 2021-08-21 17:02 | HP.PTDCSUM ---
It has been my pleasure to treat DEVORA CHILDERS referred by Dr. Mo Jameson MD, with the diagnosis of LUMBAR DDD/CHRONIC PAIN ,OSTEOPROSIS for a total of 11 visit(s). Discharge Date: 08/21/21 Please see the following information for a summary of their discharge status. Subjective: Ready for d/c Bilateral Back Pain Intensity (Out of 10): 5 % Improvement: 80 Objective/Function: POSTURE: mild thoracic kyphosis. GAIT: reciprocal pattern. MMT: quads/hams 4/5,hip flexion 4-/5. LUMBAR ROM: flexion min loss, extension mod loss Goal 1:: I with HEP for back Goal Progress: Goal Met Goal 2:: Patient demonstrate 50 % improvement with increase function and less pain Goal Progress: Goal Met Goal 3:: Patient to improve strength quads/hams 4/5 ,and hip flexion 4-/5 to improve gait. Goal Progress: Goal Met Goal 4:: Patient to improve back oswestry score by 5 points to improve function and QOL. Goal Progress: Goal Met Goal 5:: Patient to improve quality of gait and standing with less pain to improve ADL's Goal Progress: Goal Met Plan: D/C Discharge Comments: hep If there are questions or concerns regarding this patient's physical therapy, please feel free to call me at [phone]. Thank you for the referral of this patient. Sincerely, Angel Ricci, PT, Cert MDT, OCS Balance/Gait/Functional tests - Balance/Special Test Scores Oswestry Low Back Score: 8
== END 2021-08-21 19:00 | disposition home or self-care (01) ==
LOC: PT 16:30
PROVIDERS: PCP Family Medicine; Referring Provider Family Medicine; Visit Provider Family Medicine
DX: M51.36 Other intervertebral disc degeneration, lumbar region (principal); G89.29 Other chronic pain; M81.0 Age-related osteoporosis without current pathological fracture
CPT/HCPCS: 97110; 97162

== ENCOUNTER 2022-01-06 13:09 | Inpatient (IN) | payer MEDICARE, SELFPAY ==
[2022-01-06] VITALS (11 sets, daily range): BP systolic 79–138; BP diastolic 47–102; PULSE 68–80; RESP 14–18; TEMP 36.3–36.4; O2SAT 91–97; BMI 35.9; BMI 33.0
--- NOTE | 2022-01-06 13:43 | RAD_ITS ---
STUDY: X-RAY CHEST REASON FOR EXAM: Female, 81 years old. Sob TECHNIQUE: Single AP portable view of the chest. COMPARISON: Comparison is made with prior study dated 02/23/2021. FINDINGS: EKG electrodes are seen. Stable blunting of the left costophrenic angle. A right-sided dual-chamber pacemaker is seen. Pacemaker wires are also seen on the left side. Normal mediastinum and mirlande. Normal visualized pulmonary arteries. There is atherosclerotic calcification of the aortic arch with tortuosity. There are diffuse degenerative changes of the visualized thoracic spine. There is degenerative osteoarthritis of the bilateral shoulders. Questionable hiatal hernia. RAD/Chest 1 View (Portable) IMPRESSION: Stable blunting of the left costophrenic angle. No other abnormality is seen. Electronically Signed: Ramón Hyde MD at 15:10 EDT ,
--- NOTE | 2022-01-06 13:43 | CT_ITS ---
STUDY: CTA HEAD AND NECK WITH CONTRAST REASON FOR EXAM: Female, 81 years old. Slurred speech RADIATION DOSAGE (If Supplied By Facility): CTDIvol = ( 20.15 ) mGy, DLP = ( 690.06 ) mGycm TECHNIQUE: CT angiography was performed with a multi-detector CT scanner. Data acquisition was obtained from the skull base through the vertex following intravenous administration of IV 100mL Isovue-370. MIP images were reconstructed from the axial data set. Post-processing of the angiographic images was performed, with multiplanar reformation and 3D reconstruction. Individualized dose optimization techniques were used for this CT. COMPARISON: No relevant priors. FINDINGS: Normal bilateral petrous carotid arteries. Normal right cavernous carotid artery with a normal supraclinoid bifurcation. Normal left cavernous carotid artery with a normal supraclinoid bifurcation. Normal right A1 segments of the anterior cerebral artery. Normal left A1 segments of the anterior cerebral artery. Normal intact anterior communicating artery (ACOM). Normal bilateral A2 segments of the anterior cerebral arteries. Normal right M1 and M2 segments of the middle cerebral arteries, with a normal M1 bifurcation. Normal left M1 and M2 segments of the middle cerebral arteries, with a normal M1 bifurcation. Normal right posterior communicating artery (PCOM). Normal left posterior communicating artery (PCOM). Normal bilateral vertebral arteries. Normal basilar artery with a normal basilar bifurcation. The visualized bilateral superior cerebellar (SCA) arteries are normal. Normal bilateral P1, P2 and visualized P3 segments of the posterior cerebral arteries. There is no demonstrated aneurysm of the [place]. Mild degree of cerebral atrophy. Calcific densities in the right lobe of the thyroid. AORTIC ARCH: There is atherosclerotic calcific plaque formation of the aortic arch and great vessels arising from the aortic arch, without a hemodynamically significant stenosis. There is a normal origin of the brachiocephalic, left common carotid, and left subclavian arteries. RIGHT CAROTID ARTERIES: Normal right common carotid artery (CCA). Normal right common carotid bulb. Normal origin of the right internal carotid (ICA) artery without a hemodynamically significant stenosis. Normal visualized cervical portion of the right internal carotid artery. Normal origin of the right external carotid artery (ECA). LEFT CAROTID ARTERIES: Normal left common carotid artery (CCA). Normal left common carotid bulb. Normal origin of the left internal carotid (ICA) artery without a hemodynamically significant stenosis. Normal visualized cervical portion of the left internal carotid artery. Normal origin of the left external carotid artery (ECA). VERTEBRAL ARTERIES: Normal bilateral vertebral arteries. IMPRESSION: Normal CTA Head and neck with contrast. Electronically Signed: Ramón Hyde MD at 15:17 EDT , STUDY: CT BRAIN WITHOUT CONTRAST REASON FOR EXAM: Female, 81 years old. Slurred speech RADIATION DOSAGE (If Supplied By Facility): CTDIvol = ( 44.99 ) mGy, DLP = ( 745.49 ) mGycm TECHNIQUE: Transaxial CT imaging of the brain was performed without administration of intravenous contrast material. Individualized dose optimization techniques were used for this CT. COMPARISON: No relevant priors. FINDINGS: Normal soft tissue structures. Normal calvarium. There is mild cerebral atrophy with widening of the extra-axial spaces and ventricular dilatation. There are areas of decreased attenuation within the white matter tracts of the supratentorial brain, consistent with microvascular disease changes. Normal basal ganglia and thalami. Normal brainstem. Normal cerebellum. There is no intracranial hemorrhage. There are no findings of an acute ischemic infarction. Calcific plaques in the vertebral arteries and cavernous portions of the internal carotid arteries bilaterally. Normal visualized paranasal sinuses. CT/CTA Head AND Neck W/ Contrast IMPRESSION: Chronic involutional changes of the brain. Electronically Signed: Ramón Hyde MD at 15:18 EDT ,
--- NOTE | 2022-01-06 13:43 | EKG12_ITS ---
Test Reason : Blood Pressure : / mmHG Vent. Rate : 070 BPM Atrial Rate : 070 BPM P-R Int : 238 ms QRS Dur : 080 ms QT Int : 466 ms P-R-T Axes : -24 -41 006 degrees QTc Int : 503 ms Atrial-paced rhythm with prolonged AV conduction Left axis deviation Low voltage QRS Jeremy- Septal infarct , age undetermined, cannot be excluded Inferior infarct , age undetermined Abnormal ECG Confirmed by SHLOMO MOLINA, LEANDRO ([id number]), makeup editor BRITT MARCUS ([id number]) on 01/08/2022 6:39:33 AM Referred By: ROBER Confirmed By:LEANDRO KEENAN MD
[2022-01-06 14:04] LABS: Absolute Lymphocyte Count 3.76 X10^3/uL (0.83-4.51); Absolute Neutrophil Count 2.7 X10^3/uL (2.0-7.7); Basophil# 0.03 X10^3/uL; Basophil% 0.4 % (0-1); Eosinophil# 0.07 X10^3/uL; Hematocrit 37.8 % (37-47); Hemoglobin 12.5 g/dL (12.0-15.0); Lymphocyte # 3.76 X10^3/ul (0.83-4.51); Lymphocyte % 51.9 % (19-41); Mean Corp Hgb Conc 33.1 g/dL (32-36); Mean Corpuscular Hgb 31.5 pg (27.0-32.0); Mean Corpuscular Volume 95.2 fL (81-99); Mean Platelet Vol. 9.5 fl (6.2-12.0); Monocyte# 0.71 X10^3/uL; Monocyte% 9.8 % (0-10); NRBC Flagged by Analyzer 0 % (0-5); Neutrophil # 2.65 X10^3/uL (2.7-7.7); Neutrophil % 36.6 % (47-70); Platelet Count 245 K/mm3 (150-450); RBC Distribution Width CV 12.3 % (11.6-14.6); RBC Distribution Width SD 42.9 fl (35.1-43.9); Red Blood Count 3.97 M/mm3 (4.2-5.4); White Blood Count 7.2 K/mm3 (4.4-11.0)
[2022-01-06] MEDS: 0.9% Normal Saline 1,000 ML 150 ML IV (14:05)
[2022-01-06 14:16] LABS: International Normalized Ratio 1.4; Partial Thromboplast Time 32.4 Seconds (24.1-36.2); Prothrombin Time (Protime)PT. 16.9 SECONDS (11.7-14.9)
[2022-01-06 14:19] LABS: AST(SGOT) 12 U/L (15-37); Alanine Aminotransfer ALT/SGPT 13 U/L (13-56); Albumin, Serum 3.1 g/dL (3.2-5.0); Alkaline Phosphatase 47 U/L (45-117); Anion Gap 7 (5-15); BUN 9 mg/dL (7-18); BUN/Creat Ratio 11.3 RATIO (10-20); Bilirubin, Direct 0.11 mg/dL (0.00-0.30); Calcium,Total 8.9 mg/dL (8.5-10.1); Chloride 106 mmol/L (98-107); EST Glomerular Filtration Rate 74 mL/min (>60); Est Glom Filt Rate - Afr Amer 89 mL/min (>60); Estimated Creatinine Clearance 39.62 ml/min; Globulin 3.3 g/dL (2.2-4.2); Glucose 146 mg/dL (74-106); Potassium 3.2 mmol/L (3.5-5.1); Protein, Total 6.4 g/dL (6.4-8.2); Sodium Level 145 mmol/L (136-145); Troponin-I HS 6 pg/mL (3.0-54.0)
--- NOTE | 2022-01-06 14:38 | EDS_ITS ---
HPI History of Present Illness Chief Complaint: Neuro S/Sx Informant: patient and family Onset/Context/Timing Onset: Today Narrative Narrative: Patient presents secondary to generalized weakness and slurred speech. It is noted the patient does not have her dentures in and her mouth is dry. Daughter states that her mom normally does not get up until noon. This morning she got up at 9 AM and states she felt fine. She spoke with her daughter on the phone at 9 AM and daughter states she sounded normal. Daughter also spoke with her at noon and felt that she sounded normal. She then presented to the patient's house where she noted her to be very weak and with slurred speech. Patient is insistent that her symptoms started at 9 AM. Patient is already on Eliquis. She denies having pain anywhere. She states she does feels weak and tired all over. [facility] Medical History Arthritis Back pain Back pain due to injury Bleeding tendency Breast cancer Cancer Cardiology follow-up encounter CHF (congestive heart failure) Chronic pain Complete heart block CVA (cerebral vascular accident) Depression Difficulty swallowing Dyspnea Excessive bleeding Gastric reflux Gastric wall thickening GERD (gastroesophageal reflux disease) Hiatal hernia High cholesterol History of CHF (congestive heart failure) History of hiatal hernia History of pacemaker History of sinoatrial node dysfunction History of steroid therapy History of stress test Hyperlipidemia Hypothyroidism Insomnia Irregular heart beat Mid back pain on right side Non-smoker Osteoarthritis Pacemaker Post-menopausal Presence of permanent cardiac pacemaker Seizure disorder Seizures Sick sinus syndrome Syncope Syncope and collapse Thyroid disease Ulcer Vision loss of left eye Wears glasses Home Medications quetiapine 400 mg tablet 400 mg PO QHS SLEEP 01/01/13 [History Last Taken 09/24/20] cod liver oil 1 cap PO BID SUPPLEMENT 08/03/17 [History Last Taken 09/24/20] apixaban 5 mg tablet 5 mg PO BID BLOOD THINNER 12/20/18 [History Last Taken 03/07/21] diltiazem HCl 30 mg tablet (Cardizem) 30 mg PO TID heart 06/14/20 [History Last Taken 09/24/20] levothyroxine 75 mcg tablet 75 mcg PO DAILY thyroid 06/14/20 [History Last Taken 09/25/20] bupropion HCl 150 mg 24 hr tablet, extended release 150 mg PO DAILY depression 09/19/20 [History Last Taken 09/25/20] bupropion HCl 300 mg 24 hr tablet, extended release 300 mg PO DAILY depression 09/19/20 [History Last Taken 09/24/20] calcium carb-ergocalciferol (vit D2) 600 mg calcium-200 unit tablet 1 tab PO DAILY supplement 09/19/20 [History Last Taken 09/24/20] levetiracetam 500 mg tablet 1,500 mg PO BID seizures 09/19/20 [History Last Taken 09/25/20] acetaminophen 650 mg tablet,extended release 1,300 mg PO Q8H pain 01/06/22 [History Last Taken Unknown] cholecalciferol (vitamin D3) 50 mcg (2,000 unit) capsule (Vitamin D3) 2,000 unit PO DAILY supplement 01/06/22 [History Last Taken 01/06/22] dextromethorphan-guaifenesin 30 mg-600 mg tablet extended [id number] hr (Mucinex DM) 1 tab PO Q12H 01/06/22 [History Last Taken Unknown] Allergy/AdvReac Type Severity Reaction Status Date / Time Penicillins Allergy Unknown Verified 06/13/21 15:42 rivaroxaban [From Xarelto] Allergy PT UNSURE Verified 06/13/21 15:42 OF REACTION Family History Daughter Breast cancer Father Heart disease Surgical History History of appendectomy History of bilateral carpal tunnel release History of bilateral knee replacement History of bladder suspension procedure History of cholecystectomy History of foot surgery History of hernia surgery History of hysterectomy History of laparoscopic cholecystectomy History of left cataract extraction History of left mastectomy Hx of kyphoplasty S/P hysterectomy Status post biventricular cardiac pacemaker insertion Social History Smoking Status: Never smoker alcohol intake: never substance use type: does not use ROS ROS ED Constitutional Constitutional ED: Denies chills or fever(s) Eyes Eyes: Denies change in vision or discharge from eye(s) ENT ENT ED: Denies discharge from eye(s), rhinorrhea or sore throat Cardiovascular Cardiovascular: Denies chest pain or palpitations Respiratory/Chest Respiratory/Chest: Denies cough or dyspnea Gastrointestinal Gastrointestinal: Denies abdominal pain, diarrhea, nausea or vomiting Genitourinary Genitourinary ED: Denies dysuria Musculoskeletal Musculoskeletal: Denies back pain or extremity pain Integumentary Denies Abrasions or rash Neurologic Neurologic: Reports weakness and other Details: Slurred speech ; Denies headache(s) Psychiatric Psychiatric: Denies anxiety or depression Endocrine Endocrinology: Denies polydipsia or polyuria Allergic/Immunologic Allergic/Immunologic ED: Denies lip swelling or urticaria EXAM Physical Exam Narrative Exam Narrative: Patient resting with her eyes closed but will answer questions appropriately and intermittently open her eyes. Const Vital Signs: 01/06/22 13:11 01/06/22 13:39 01/06/22 15:40 Temperature 97.4 F L Temperature Source Oral Pulse Rate 80 71 Respiratory Rate 18 14 Blood Pressure 138/102 H 117/57 L Blood Pressure Mean 114 77 Pulse Ox 91 97 94 Oxygen Delivery Method Room Air Nasal Cannula Nasal Cannula Oxygen Flow Rate (L/min) 2 2 Positive well nourished and well developed General Appearance ED: well developed HEENT Reports normocephalic and head/scalp atraumatic Eyes PERRL and EOMs intact bilaterally Neck supple Chest Wall inspection of chest normal and palpation of chest normal Resp normal respiratory effort and clear to auscultation bilaterally Cardio regular rate and regular rhythm GI normal to inspection, nondistended, normoactive bowel sounds Palpation: soft Extremity normal to inspection Neuro oriented x3 and no sensory deficits noted Neuro Narrative: NIH is 2. She receives one-point for slurred speech (note that patient has no dentures in and has a dry mouth) and 1 point for slight weakness to the left lower extremity. Sensorium / Orientation: alert Psych mental status grossly normal Skin no rashes or lesions noted MDM MDM MDM Narrative Medical decision making narrative: Patient placed on branch sales manager. EKG, chest x-ray, lab work obtained. Urinalysis obtained. Swab for COVID and influenza ordered. CTA of the head and neck ordered. Lab Data Attestation: I reviewed the patient's lab results. Labs: Laboratory Results - last 24 hr 01/06/22 01/06/22 01/06/22 13:27 13:27 13:27 WBC 7.2 RBC 3.97 L Hgb 12.5 Hct 37.8 MCV 95.2 MCH 31.5 MCHC 33.1 RDW Std Deviation 42.9 RDW Coeff of Daniel 12.3 Plt Count 245 MPV 9.5 Immature Gran % (Auto) 0.300 Neut % (Auto) 36.6 L Lymph % (Auto) 51.9 H [place] % (Auto) 9.8 Eos % (Auto) 1.0 Baso % (Auto) 0.4 Absolute Neuts (auto) 2.7 Absolute Lymphs (auto) 3.76 Nucleated RBC % 0 PT 16.9 H INR 1.4 APTT 32.4 Sodium 145 Potassium 3.2 L Chloride 106 Carbon Dioxide 32.0 Anion Gap 7 BUN 9 Creatinine 0.80 Estim Creat Clear Calc 39.62 Est GFR (MDRD) Af Amer 89 Est GFR (MDRD) Non-Af 74 BUN/Creatinine Ratio 11.3 Glucose 146 H Lactic Acid Calcium 8.9 Total Bilirubin 0.30 Direct Bilirubin 0.11 AST 12 L ALT 13 Alkaline Phosphatase 47 Troponin I High Sens 6 Total Protein 6.4 Albumin 3.1 L Globulin 3.3 Urine Color Urine Clarity Urine pH Ur Specific [place] Urine Protein Urine Glucose (UA) Urine Ketones Urine Occult Blood Urine Nitrite Urine Bilirubin Urine Urobilinogen Ur Leukocyte Esterase Urine RBC Urine WBC Ur Squamous Epith Cells Urine Bacteria Urine Mucus 01/06/22 01/06/22 14:06 15:20 WBC RBC Hgb Hct MCV MCH MCHC RDW Std Deviation RDW Coeff of Daniel Plt Count MPV Immature Gran % (Auto) Neut % (Auto) Lymph % (Auto) [place] % (Auto) Eos % (Auto) Baso % (Auto) Absolute Neuts (auto) Absolute Lymphs (auto) Nucleated RBC % PT INR APTT Sodium Potassium Chloride Carbon Dioxide Anion Gap BUN Creatinine Estim Creat Clear Calc Est GFR (MDRD) Af Amer Est GFR (MDRD) Non-Af BUN/Creatinine Ratio Glucose Lactic Acid 1.8 Calcium Total Bilirubin Direct Bilirubin AST ALT Alkaline Phosphatase Troponin I High Sens Total Protein Albumin Globulin Urine Color Yellow Urine Clarity Sl. Cloudy Urine pH 7.0 Ur Specific [place] 1.005 Urine Protein 15 H Urine Glucose (UA) Normal Urine Ketones Negative Urine Occult Blood 25 H Urine Nitrite Negative Urine Bilirubin Negative Urine Urobilinogen Normal Ur Leukocyte Esterase 500 H Urine RBC 0-5 SEEN Urine WBC 50-100 SEEN Ur Squamous Epith Cells 0-5 SEEN Urine Bacteria 3+ Urine Mucus 0 SEEN Radiography Diagnostic Testing: Clinical Impression(s) from Imaging Studies Chest X-Ray 01/06/22 13:43 IMPRESSION: Stable blunting of the left costophrenic angle. No other abnormality is seen. Electronically Signed: Ramón Hyde MD at 15:10 EDT , Head/Neck CTA 01/06/22 13:43 IMPRESSION: Chronic involutional changes of the brain. Electronically Signed: Ramón Hyde MD at 15:18 EDT , EKG Initial EKG: Attestation: I personally reviewed and interpreted this EKG as follows: Interpretation: - (Atrial paced rhythm at [address] change.) Treatment and Re-Evaluation Narrative: CBC unremarkable with predominant lymphocyte differential. Chemistry studies significant for slightly low potassium at 3.2. Glucose is 146. Chemistry studies unremarkable. Lactic acid is 1.8. Troponin is normal at 6. Urinalysis reveals 3+ bacteria with 50-100 white cells. Patient does report intermittent pressure over her bladder as well as urgency. She be treated with oral potassium and oral Bactrim given her allergies. Urine culture has been sent. CTA of the head and neck reveals no acute findings. Patient does live alone and has generalized weakness making it difficult for her to get around. I did recommend observation overnight for further treatment and evaluation. I will s peak with the hospitalist. Discharge Plan Dx/Rx/DC Orders Clinical Impression: Generalized weakness, UTI (urinary tract infection) Disposition Disposition: Acute Care Hospital [facility]
[2022-01-06 14:45] LABS: Lactic Acid 1.8 mmol/L (0.4-1.9)
[2022-01-06 15:30] LABS: Mucous, Urine 0 SEEN /hpf (<or=2+)
[2022-01-06 15:42] LABS: Color, Urine Yellow (Yellow); Glucose, Dipstick Normal (Normal); Ketone-Dipstick Negative (Negative); Leukocyte Esterase-Dipstick 500 /ul (Negative); Nitrite-Dipstick Negative (Negative); Occult Blood-Urine 25 /ul (Negative); Protein-Dipstick 15 mg/dl (Negative); Specific Gravity, Urine 1.005 (1.002-1.030); Urine Bilirubin Dipstick Negative (Negative); Urine Clarity Sl. Cloudy (Clear); Urine Urobilinogen Normal (Normal)
[2022-01-06 15:49] LABS: Red Blood Cells-Urine 0-5 SEEN /hpf (0-5); Squamous Epithelial Cells - UA 0-5 SEEN /hpf (5-10); White Blood Cells 50-100 SEEN /hpf (0-5)
[2022-01-06 15:50] LABS: Bacteria 3+ /hpf (None Seen)
[2022-01-06] MEDS: Potassium Chloride Oral Soln 20 MEQ/15 ML UDC 40 MEQ PO (16:16)
[2022-01-06] MEDS: Smz/Tmp Ds Tablet 1 TABLET PO ×2 (16:16→21:06)
--- NOTE | 2022-01-06 17:17 | PCM.HP.STD ---
HPI - General General Date of Admission: 01/06/22 Date of Service: 01/06/22 Chief Complaint: Weakness HPI Narrative ALDA CHILDERS, is a 81 F with a past medical history of L1 compression fracture, complete heart block status post permanent pacemaker, seizure disorder chronically on Keppra, and A. fib on Eliquis who presented to [facility] 01-06-2022 with generalized weakness and difficulty with her speech. Her daughter spoke with her at 9 in the morning and felt she was doing fine and then when she went to her house at noon she noted that her mother was weak and had difficulty talking. Per Alda she reports that she did started not feeling well at 9 AM and had been intermittently dizzy and that progressed to feeling weak all over and having difficulty getting her words out. In the ED she was noted to have UA concerning for UTI and given Bactrim. She was also started on fluids and chest x-ray as well as head and neck CTA were performed all of which were unremarkable. Glucose was 146. Patient continued to feel somewhat generally weak, mostly in her legs, but speech reportedly was improving. When evaluated in the ED she was slightly confused, interview performed with daughter at bedside. Did report urinary frequency, denied burning. Denied chest pain or shortness of breath. Denied headache, chronic changes in vision with eye surgery 2 weeks ago. She denies any focal deficits, reports eating and drinking well. Has been losing weight though reportedly intentionally. Does have a history of seizures but denies any seizure activity for over 40 years, reportedly compliant with her home Keppra. Does report she has had the problem feeling dizzy when she stood up before and it was similar to this. Also occasionally has mechanical falls. [facility] Medical History Arthritis Back pain Back pain due to injury Bleeding tendency Breast cancer Cancer Cardiology follow-up encounter CHF (congestive heart failure) Chronic pain Complete heart block CVA (cerebral vascular accident) Depression Difficulty swallowing Dyspnea Excessive bleeding Gastric reflux Gastric wall thickening GERD (gastroesophageal reflux disease) Hiatal hernia High cholesterol History of CHF (congestive heart failure) History of hiatal hernia History of pacemaker History of sinoatrial node dysfunction History of steroid therapy History of stress test Hyperlipidemia Hypothyroidism Insomnia Irregular heart beat Mid back pain on right side Non-smoker Osteoarthritis Pacemaker Post-menopausal Presence of permanent cardiac pacemaker Seizure disorder Seizures Sick sinus syndrome Syncope Syncope and collapse Thyroid disease Ulcer Vision loss of left eye Wears glasses Home Medications quetiapine 400 mg tablet 400 mg PO QHS SLEEP 01/01/13 [History Last Taken 01/05/22] cod liver oil 1 cap PO BID SUPPLEMENT 08/03/17 [History Last Taken 2 Days Ago ~01/04/22] apixaban 5 mg tablet 5 mg PO BID BLOOD THINNER 12/20/18 [History Last Taken 01/06/22] diltiazem HCl 30 mg tablet (Cardizem) 30 mg PO TID heart 06/14/20 [History Last Taken 01/06/22] levothyroxine 75 mcg tablet 75 mcg PO DAILY thyroid 06/14/20 [History Last Taken 01/06/22] bupropion HCl 150 mg 24 hr tablet, extended release 150 mg PO DAILY depression 09/19/20 [History Last Taken 01/06/22] bupropion HCl 300 mg 24 hr tablet, extended release 300 mg PO DAILY depression 09/19/20 [History Last Taken 01/06/22] calcium carb-ergocalciferol (vit D2) 600 mg calcium-200 unit tablet 1 tab PO DAILY supplement 09/19/20 [History Last Taken 01/06/22] levetiracetam 500 mg tablet 1,500 mg PO BID seizures 09/19/20 [History Last Taken 01/06/22] acetaminophen 650 mg tablet,extended release 1,300 mg PO Q8H pain 01/06/22 [History Last Taken Unknown] cholecalciferol (vitamin D3) 50 mcg (2,000 unit) capsule (Vitamin D3) 2,000 unit PO DAILY supplement 01/06/22 [History Last Taken 01/06/22] dextromethorphan-guaifenesin 30 mg-600 mg tablet extended ultihug16 hr (Mucinex DM) 1 tab PO Q12H 01/06/22 [History Last Taken Unknown] Allergy/AdvReac Type Severity Reaction Status Date / Time Penicillins Allergy Unknown Verified 06/13/21 15:42 rivaroxaban [From Xarelto] Allergy PT UNSURE Verified 06/13/21 15:42 OF REACTION Family History Daughter Breast cancer Father Heart disease Surgical History History of appendectomy History of bilateral carpal tunnel release History of bilateral knee replacement History of bladder suspension procedure History of cholecystectomy History of foot surgery History of hernia surgery History of hysterectomy History of laparoscopic cholecystectomy History of left cataract extraction History of left mastectomy Hx of kyphoplasty S/P hysterectomy Status post biventricular cardiac pacemaker insertion Social History Smoking Status: Never smoker alcohol intake: never substance use type: does not use ROS Constitutional Constitutional: Reports other Details: Gradual weight loss reportedly intentional ; Denies chills, fever(s) or night sweats Eyes Eyes: Reports other Details: Chronic changes in vision ENT HEENT: Denies headache(s), nasal congestion or sore throat Cardiovascular Cardiovascular: Denies chest pain or palpitations Respiratory/Chest Respiratory/Chest: Reports other Details: Denies shortness of breath, occasionally feels she has phlegm minimal cough, no change from baseline. Gastrointestinal Gastrointestinal: Reports other Details: denies changes in bowel or bladder ; Denies abdominal pain Genitourinary Genitourinary: Reports other Details: Endorses increased urinary frequency Musculoskeletal Musculoskeletal: Reports other Details: Chronic knee pain Neurologic Neurologic: Reports other Details: Feels general weakness, denies any localizing symptoms, not feeling dizzy at this time and no numbness or tingling ; Denies dizziness, focal weakness, headache(s), numbness or tingling Psychiatric Psychiatric: Denies anxiety Hematologic/Lymphatic Hematologic/Lymphatic: Denies easy bleeding Allergic/Immunologic Allergic/Immunologic: Reports other Details: denies rashes Vital Signs Vital Signs Vital Signs: 01/06/22 13:11 01/06/22 13:39 01/06/22 15:40 Temperature 97.4 F L Temperature Source Oral Pulse Rate 80 71 Respiratory Rate 18 14 Blood Pressure 138/102 H 117/57 L Blood Pressure Mean 114 77 Pulse Ox 91 97 94 Oxygen Delivery Method Room Air Nasal Cannula Nasal Cannula Oxygen Flow Rate (L/min) 2 2 01/06/22 16:27 Temperature 97.4 F L Temperature Source Oral Pulse Rate 70 Respiratory Rate 17 Blood Pressure 104/75 Blood Pressure Mean 84 Pulse Ox 96 Oxygen Delivery Method Nasal Cannula Oxygen Flow Rate (L/min) 2 Weight Weight: 83.5 kg Body Mass Index (BMI) 35.9 Physical Exam Const alert Constitutional Narrative: Appears tired, oriented to self and birthday as well as location, unsure of the year HEENT normocephalic and head/scalp atraumatic HEENT Narrative: Dry oral mucosa Eyes Eyes Narrative: EOM grossly intact, anicteric Neck no lymphadenopathy and supple Resp normal respiratory effort and clear to auscultation bilaterally Cardio regular rate and regular rhythm GI soft to palpation, non-tender and non-distended Extremity Extremity Narrative: No edema appreciated, 4 out of 5 strength in bilateral lower extremities, 5 out of 5 strength in bilateral upper extremities Neuro CN's II-XII intact bilaterally and moves all extremities Neuro Narrative: No overt focal deficits appreciated, [id number] without noted dysmetria, pupils equal round reactive to light, extraocular movements intact though had difficulty following up instruction, no nystagmus noted Psych Psych Narrative: Cooperative but had difficulty answering questions at times Results Lab / Micro Data Result Diagrams: 01/06/22 13:27 01/06/22 13:27 Labs: Laboratory Results - last 24 hr 01/06/22 13:27: WBC 7.2, RBC 3.97 L, Hgb 12.5, Hct 37.8, MCV 95.2, MCH 31.5, MCHC 33.1, RDW Std Deviation 42.9, RDW Coeff of Daniel 12.3, Plt Count 245, MPV 9.5, Immature Gran % (Auto) 0.300, Neut % (Auto) 36.6 L, Lymph % (Auto) 51.9 H, [place] % (Auto) 9.8, Eos % (Auto) 1.0, Baso % (Auto) 0.4, Absolute Neuts (auto) 2.7, Absolute Lymphs (auto) 3.76, Nucleated RBC % 0 01/06/22 13:27: PT 16.9 H, INR 1.4, APTT 32.4 01/06/22 13:27: Sodium 145, Potassium 3.2 L, Chloride 106, Carbon Dioxide 32.0, Anion Gap 7, BUN 9, Creatinine 0.80, Estim Creat Clear Calc 39.62, Est GFR (MDRD) Af Amer 89, Est GFR (MDRD) Non-Af 74, BUN/Creatinine Ratio 11.3, Glucose 146 H, Calcium 8.9, Total Bilirubin 0.30, Direct Bilirubin 0.11, AST 12 L, ALT 13, Alkaline Phosphatase 47, Troponin I High Sens 6, Total Protein 6.4, Albumin 3.1 L, Globulin 3.3 01/06/22 14:06: Lactic Acid 1.8 01/06/22 15:20: Urine Color Yellow, Urine Clarity Sl. Cloudy, Urine pH 7.0, Ur Specific [place] 1.005, Urine Protein 15 H, Urine Glucose (UA) Normal, Urine Ketones Negative, Urine Occult Blood 25 H, Urine Nitrite Negative, Urine Bilirubin Negative, Urine Urobilinogen Normal, Ur Leukocyte Esterase 500 H, Urine RBC 0-5 SEEN, Urine WBC 50-100 SEEN, Ur Squamous Epith Cells 0-5 SEEN, Urine Bacteria 3+, Urine Mucus 0 SEEN Micro: Microbiology 01/06/22 15:58 Nasal Secretion SARS-CoV-2 & FLU Antigen (Rapid) - Final Radiology Impression Chest X-Ray 01/06/22 13:43 IMPRESSION: Stable blunting of the left costophrenic angle. No other abnormality is seen. Electronically Signed: Ramón Hyde MD at 15:10 EDT , Head/Neck CTA 01/06/22 13:43 IMPRESSION: Chronic involutional changes of the brain. Electronically Signed: Ramón Hyde MD at 15:18 EDT , Assessment & Plan Assessment/Plan (1) Generalized weakness: (2) UTI (urinary tract infection): (3) Hypothyroidism: (4) Pre-syncope: PLAN: Plan #Generalized weakness Endorsed feeling fine initially in the morning and then began feeling lightheaded when she would stand up and started feeling generally weak, did have difficulty getting her words out earlier in the day as well No seizure activity reported, she denies any lapse in memory or loss of consciousness Reports compliance with Keppra, do not feel EEG or seizure work-up needed at this time Orthostats are positive, will hydrate and hold antihypertensives as well as decrease Seroquel dose Also may be contributed to by UTI, will continue Bactrim and await culture PT/OT consult, patient does live alone #Presyncope Endorsed feeling lightheaded when going from sitting to standing which exacerbated her feelings of generalized weakness Orthostats are positive Will start on maintenance fluids Holding diltiazem Will also decrease Seroquel to 200 mg nightly and recheck vitals in the morning as this could be a contributing factor Unclear what she is taking this for, will need to further clarify Given cardiac history, we will also interrogate pacemaker, echo ordered Troponins negative Admit to telemetry CTA unremarkable #History of seizure disorder Reports no seizures in over 40 years Continue home Rashad Did not lose consciousness, does not sound as though she had seizure activity Low threshold for EEG and further work-up if concerns Holding Wellbutrin given it can lower the seizure threshold, will speak to her in the morning regarding risks and benefits of this Given her confusion this evening unable to discuss #Altered mental status Possibly secondary to UTI or medication Will treat UTI with Bactrim and await urine culture, decrease Seroquel to 200 mg given the presyncope and positive orthostats #A. fib She is unable to say if she has A. fib but it is documented as a problem during her previous admission Holding Cardizem given her low blood pressure Continue Suha Hernandez MD Charges/Coding Visit Charges Inpatient E&M: 16752 Init Hosp L2
--- NOTE | 2022-01-06 17:23 | ECHOD_ITS ---
Reason For Study: Syncope Procedure This was a 2D Doppler, Color Flow transthoracic echocardiogram. The exam was of adequate technical quality. Exam performed portable in patient room. Left Ventricle Normal LV size. Left ventricular systolic function is normal. The estimated ejection fraction is 65 %. No evidence for diastolic dysfunction. No regional wall motion abnormalities noted. Right Ventricle Normal RV size. ICD or pacer leads identified within the right ventricle. Normal systolic function. Atria Normal left atrium. Normal right atrium. ICD or pacer leads identified within the right atrium. No doppler evidence for ASD. Mitral Valve There is no mitral annular calcification. Normal mitral valve. Mild (1+) mitral valve insufficiency. Tricuspid Valve Normal tricuspid valve. Mild (1+) tricuspid valve insufficiency. Right ventricular systolic pressure estimated to be 25 mmHg. Aortic Valve Trisinus/trileaflet aortic valve. Moderate focal aortic valve calcification. Aortic sclerosis, no stenosis. Pulmonic Valve The pulmonic valve is not well visualized. Trivial pulmonic valve insufficiency. Great Vessels Normal sized aortic root. Pericardium/Pleural No pericardial effusion. MMode/2D Measurements & Calculations LVIDd: 4.0 cm IVSd: 1.3 cm LVOT diam: 2.0 cm LVIDs: 2.6 cm LVPWd: 1.2 cm LVOT area: 3.0 cm2 RVDd: 3.7 cm FS: 34.7 % Ao root diam: 3.5 cm LAV(MOD-bp): 42.1 ml LA A4 area: 13.9 cm2 LA dimension: 3.2 cm LAV(MOD-bp) Indexed: 24.3 ml/m2 LAV(MOD-sp2): 44.6 ml LAV(MOD-sp4): 33.9 ml RA A4 area: 10.5 cm2 Time Measurements MV dec time: 0.24 sec Doppler Measurements & Calculations MV E max ronni: 67.3 cm/sec Lat Peak E' Ronni: 9.0 cm/sec Med Peak E' Ronni: 8.0 cm/sec MV A max ronni: 118.3 cm/sec E/E' lat: 7.5 E/E' med: 8.4 MV E/A: 0.57 MV V2 max: 126.5 cm/sec MV P1/2t max ronni: 84.7 cm/sec Ao V2 max: 126.8 cm/sec MV max P.4 mmHg MV P1/2t: 84.8 msec Ao max P.4 mmHg MV V2 mean: 64.1 cm/sec MV dec slope: 292.3 cm/sec2 Ao V2 mean: 88.8 cm/sec MV mean P.0 mmHg Ao mean P.6 mmHg MV V2 VTI: 34.4 cm MVA(P1/2t): 2.6 cm2 Ao V2 VTI: 31.7 cm MVA(VTI): 2.2 cm2 ALDO(I,D): 2.4 cm2 ALDO(V,D): 2.5 cm2 AI max ronni: 356.3 cm/sec LV V1 max: 106.9 cm/sec MR max ronni: 548.9 cm/sec AI max P.8 mmHg LV V1 max P.6 mmHg MR max P.5 mmHg LV V1 mean P.6 mmHg MR mean ronni: 448.7 cm/sec AI dec slope: 264.5 cm/sec2 LV V1 mean: 75.6 cm/sec MR mean P.6 mmHg AI P1/2t: 394.6 msec LV V1 VTI: 25.6 cm MR VTI: 216.1 cm SV(LVOT): 76.4 ml PA V2 max: 97.4 cm/sec TR max ronni: 236.4 cm/sec TR max P.4 mmHg ECHO/Echo Complete Interpretation Summary Left ventricular systolic function is normal. The estimated ejection fraction is 65 %. Mild (1+) mitral valve insufficiency. Mild (1+) tricuspid valve insufficiency. Moderate focal aortic valve calcification. Aortic sclerosis, no stenosis. Trivial pulmonic valve insufficiency. Right ventricular systolic pressure estimated to be 25 mmHg. No evidence for diastolic dysfunction. Ordering Physician: Clare Hernandez Referring Physician: Mo Jameson Performed By: Ambrocio Fleming RCS
[2022-01-06] MEDS: 0.9% Normal Saline 1,000 ML 75 ML IV (17:39)
[2022-01-06] MEDS: Acetaminophen 500 MG Tablet 1000 MG PO (17:40)
[2022-01-06 20:12] LABS: Amphetamine Urine VISTA NEGATIVE (<1000 ng/mL); Barbiturate Urine VISTA NEGATIVE (< 200 ng/mL); Benzodiazepine Urine VISTA NEGATIVE (< 200 ng/mL); Cocaine Urine VISTA NEGATIVE (< 300 ng/mL); Ecstacy Urine VISTA POSITIVE (< 500 ng/mL); Methadone Urine VISTA NEGATIVE (< 300 ng/mL); PCP Urine VISTA NEGATIVE (< 25 ng/mL); THC Urine VISTA NEGATIVE (< 50 ng/mL); Vista UDS pH Range 6
[2022-01-06] MEDS: APIXABAN 5 MG TABLET PO (21:07)
[2022-01-06] MEDS: QUEtiapine 100 MG Tablet 200 MG PO (21:08)
[2022-01-06] MEDS: levETIRAcetam 500 MG Tablet 1000 MG PO (21:08)
--- NOTE | 2022-01-06 22:34 | NURSING ---
Pt reports she is missing her glasses. This nurse did not see glasses with belongings in room. will pass on to have am staff contact family in the morning.
[2022-01-07] VITALS (11 sets, daily range): BP systolic 124–135; BP diastolic 59–77; PULSE 70–74; RESP 16–18; TEMP 36.5–37.1; O2SAT 96–98
[2022-01-07] MEDS: Acetaminophen 500 MG Tablet 1000 MG PO ×2 (02:22→17:03)
[2022-01-07] MEDS: 0.9% Normal Saline 1,000 ML 75 ML IV (05:11)
[2022-01-07] MEDS: Levothyroxine 75 MCG Tablet PO (05:12)
[2022-01-07 06:09] LABS: Basophil# 0.03 X10^3/uL; Basophil% 0.4 % (0-1); Eosinophils% 1.4 % (0-5); Hematocrit 35.4 % (37-47); Hemoglobin 11.6 g/dL (12.0-15.0); Lymphocyte % 30.3 % (19-41); Mean Corp Hgb Conc 32.8 g/dL (32-36); Mean Corpuscular Hgb 31.6 pg (27.0-32.0); Mean Corpuscular Volume 96.5 fL (81-99); Monocyte# 0.65 X10^3/uL; Monocyte% 9.4 % (0-10); NRBC Flagged by Analyzer 0 % (0-5); Neutrophil # 4.02 X10^3/uL (2.7-7.7); Neutrophil % 58.2 % (47-70); Platelet Count 212 K/mm3 (150-450); RBC Distribution Width CV 12.7 % (11.6-14.6); RBC Distribution Width SD 44.9 fl (35.1-43.9); Red Blood Count 3.67 M/mm3 (4.2-5.4); White Blood Count 6.9 K/mm3 (4.4-11.0)
[2022-01-07 07:12] LABS: AST(SGOT) 12 U/L (15-37); Alanine Aminotransfer ALT/SGPT 12 U/L (13-56); Albumin, Serum 2.8 g/dL (3.2-5.0); Alkaline Phosphatase 45 U/L (45-117); Anion Gap 5 (5-15); BUN 7 mg/dL (7-18); BUN/Creat Ratio 9.6 RATIO (10-20); Calcium,Total 8.4 mg/dL (8.5-10.1); Chloride 112 mmol/L (98-107); Creatinine, Serum 0.73 mg/dL (0.55-1.02); EST Glomerular Filtration Rate 82 mL/min (>60); Est Glom Filt Rate - Afr Amer 99 mL/min (>60); Estimated Creatinine Clearance 31.69 ml/min; Globulin 2.9 g/dL (2.2-4.2); Glucose 79 mg/dL (74-106); Potassium 3.7 mmol/L (3.5-5.1); Protein, Total 5.7 g/dL (6.4-8.2); Sodium Level 144 mmol/L (136-145); Thyroid Stim Hormone (TSH) 1.35 uIU/mL (0.358-3.74)
[2022-01-07 08:54] LABS: Hemoglobin A1c 5.3 % (3.8-5.6)
[2022-01-07] MEDS: levETIRAcetam 500 MG Tablet 1000 MG PO ×2 (10:04→21:14)
[2022-01-07] MEDS: APIXABAN 5 MG TABLET PO ×2 (10:04→21:14)
[2022-01-07] MEDS: Smz/Tmp Ds Tablet 0.5 TABLET PO ×2 (10:04→21:14)
[2022-01-07] MEDS: FLU VACC QS2022-23(6MOS UP)/PF 60 MCG/0.5 ML SYRINGE IM (10:08)
--- NOTE | 2022-01-07 10:40 | CASEMGMT ---
ISMAEL WATERS Face to Face with patient for initial transition planning/care coordination assessment. ISMAEL WATERS introduced self and role at [facility]. Patient lying in bed, alert and oriented. Patient willing to participate in assessment and is able to answer all questions appropriately. Care providers, pharmacy, and demographics verified. Patient wishes to discharge home, denies need for home health at this time, will monitor progress with therapy. Patient states she has no further needs or concerns at this time. CM to follow for discharge planning needs that may arise. PCP: Trino Specialists: Ingris java web user interface developer Preferred Pharmacy: [facility] Insurance: [employer] Prescription Benefit: yes Living Will/HPOA: yes, daughter Melyssa Tillman LNOK: daughter, brother Living Arrangements: Patient lives alone in a first floor apartment with no steps to enter. Patient states she is independent at home. Transportation: daughter DME/HHC: Patient states she has walker and home oxygen with portable tank at 2lpm but patient does not recall agency. ISMAEL WATERS to call daughter to verify home oxygen provider Disposition Plan: Patient to discharge home with family support and follow-up plans in place. Will monitor progress with therapy for possible HHC. Dana SYN, RN, CM
--- NOTE | 2022-01-07 11:49 | CHAPLAIN ---
Type of Pastoral Visit _x__ Initial Visit ___ Follow-up Visit ___ On-call Visit ___ General Patient Visit ___ Spiritual Assessment ___ Family Conference ___ Bereavement ___ Rapid Response ___ Code Blue ___ Other (describe below) Pastoral Care Referral From _x__ Patient ___ Family ___ Nurse ___ Physician ___ Slip Cover Cutter ___ Clinical Registered Nurse ___ Other (describe below) Sacrament/Intervention _x__ Active listening ___ Anointing ___ Methodist ___ Bereavement ___ Communion ___ Dorina exploration ___ ___ Life review _x__ Prayer ___ Reconciliation ___ Sacrament of Sick _x__ Supportive presence ___ Wedding ___ Other (describe below) Pastoral Comments patient describes her weakness; pt requests prayer for her nephew who has health problems and for herself; pt identifies as a believer in prayer; though not attached to a dorina community at this time she was once a Jainism member
[2022-01-07] MEDS: Ondansetron 4 MG/2 ML Vial IV (12:07)
--- NOTE | 2022-01-07 14:46 | CASEMGMT ---
ISMAEL WATERS called daughter Melyssa to confirm oxygen provider. Per daughter, oxygen is through [employer]. ISMAEL WATERS sent Christelle Patterson Liaison, email to verify oxygen orders. Daughter states that patient will be staying with her for a few days after discharge.
--- NOTE | 2022-01-07 15:42 | CASEMGMT ---
SW reviewed patient's PT/OT evaluations. Therapy is recommending [facility] facility. SW met with patient. Introduced self as well as role at [facility]. SW asked patient if she would be willing to go to a [facility] facility for rehab. Patient originally said no. However, when SW provided her with a list of??SNF providers including quality and resource use data and consistent with patient?s preferred geographic region, medical needs, and insurance network were provided from the [employer] Guide. Patient said she would consider [facility]CU. ELI told patient ELI will check in with her tomorrow. Plan: To be determined Reyna BARBER
--- NOTE | 2022-01-07 17:12 | PN.HOSP_ITS ---
Subjective Subjective DOS 01/07/2022 CC: I feel a little drunk Patient reports feeling better than yesterday but still feels a little bit weak and out of it. Denies chest pain or shortness of breath at this time, was very tired on exam however she was just woken up. Worked with physical therapy today and required dismount of assistance. Objective Data Objective Data Vital Signs: Vital Signs Temp Pulse Resp BP Pulse Ox O2 Del Method O2 Flow Rate 97.9 F 74 16 134/66 H 96 Nasal Cannula 2 01/07/22 15:00 01/07/22 15:19 01/07/22 15:00 01/07/22 15:00 01/07/22 15:00 01/07/22 15:00 01/07/22 15:00 Oxygen Flow Rate (L/min) 2 Oxygen Delivery Method Nasal Cannula Weight: 76.6 kg Body Mass Index (BMI) 33.0 Intake & Output: Intake and Output for Last 24 Hours 01/05/22 01/06/22 01/07/22 23:59 23:59 23:59 Intake Total 905 / 1145 1305 / 1305 Output Total 400 / 400 Balance 905 / 945 905 / 905 Lab / Micro Data Result Diagrams: 01/07/22 06:01 01/07/22 06:01 Labs: Laboratory Results - last 24 hr 01/06/22 15:20: Urine Opiates Screen NEGATIVE, Urine Methadone Screen NEGATIVE, Ur Barbiturates Screen NEGATIVE, Ur Phencyclidine Scrn NEGATIVE, Ur Amphetamines Screen NEGATIVE, MDMA (Ecstasy) Screen POSITIVE H, U Benzodiazepines Scrn NEGATIVE, Urine Cocaine Screen NEGATIVE, U Cannabinoids Screen NEGATIVE, Ur Drug Screen Comment 01/07/22 06:01: WBC 6.9, RBC 3.67 L, Hgb 11.6 L, Hct 35.4 L, MCV 96.5, MCH 31.6, MCHC 32.8, RDW Std Deviation 44.9 H, RDW Coeff of Daniel 12.7, Plt Count 212, MPV 9.0, Immature Gran % (Auto) 0.300, Neut % (Auto) 58.2, Lymph % (Auto) 30.3, [place] % (Auto) 9.4, Eos % (Auto) 1.4, Baso % (Auto) 0.4, Absolute Neuts (auto) 4.0, Absolute Lymphs (auto) 2.10, Nucleated RBC % 0 01/07/22 06:01: Sodium 144, Potassium 3.7, Chloride 112 H, Carbon Dioxide 27.0, Anion Gap 5, BUN 7, Creatinine 0.73, Estim Creat Clear Calc 31.69, Est GFR (MDRD) Af Amer 99, Est GFR (MDRD) Non-Af 82, BUN/Creatinine Ratio 9.6 L, Glucose 79, Calcium 8.4 L, Total Bilirubin 0.30, AST 12 L, ALT 12 L, Alkaline Phosphatase 45, Total Protein 5.7 L, Albumin 2.8 L, Globulin 2.9, Albumin/Globulin Ratio 1.0, TSH 1.35 01/07/22 06:01: Hemoglobin A1c 5.3 Micro: Microbiology 01/06/22 15:20 Urine Catheter - Catheter Urine Culture - Preliminary Streptococcus group B 01/06/22 15:58 Nasal Secretion SARS-CoV-2 & FLU Antigen (Rapid) - Final Radiography Diagnostic Testing: Radiology Impression Echocardiogram 01/06/22 17:23 Interpretation Summary Left ventricular systolic function is normal. The estimated ejection fraction is 65 %. Mild (1+) mitral valve insufficiency. Mild (1+) tricuspid valve insufficiency. Moderate focal aortic valve calcification. Aortic sclerosis, no stenosis. Trivial pulmonic valve insufficiency. Right ventricular systolic pressure estimated to be 25 mmHg. No evidence for diastolic dysfunction. Ordering Physician: Clare Hernandez Referring Physician: Mo Jameson Performed By: Ambrocio Fleming RCS Physical Exam Const alert Constitutional Narrative: Appears tired, oriented to self and birthday as well as location, unsure of the year HEENT normocephalic and head/scalp atraumatic HEENT Narrative: Dry oral mucosa Eyes Eyes Narrative: EOM grossly intact, anicteric Neck no lymphadenopathy and supple Resp normal respiratory effort and clear to auscultation bilaterally Cardio regular rate and regular rhythm GI soft to palpation, non-tender and non-distended Extremity Extremity Narrative: No edema appreciatedes Neuro moves all extremities Neuro Narrative: No overt focal deficits appreciated Psych Psych Narrative: Cooperative but tired, was more oriented however Assessment & Plan Assessment/Plan (1) Generalized weakness: (2) UTI (urinary tract infection): (3) Hypothyroidism: (4) Pre-syncope: PLAN: Plan #Generalized weakness Still feeling weak, worked with physical therapy and there is concern she may need long-term placement No seizure-like activity endorsed Remains on [place] Orthostats were positive last night and her Seroquel was decreased and antihypertensives were held and she was hydrated, they are negative this morning Also may be contributed to by UTI, will continue Bactrim and await final culture and sensitivities She was living home alone, will likely need a higher level of care on discharge #Presyncope Endorsed feeling lightheaded when going from sitting to standing which exacerbated her feelings of generalized weakness Orthostats + 01/06/2022, improved with decreasing Seroquel and holding antihypertensives Receiving fluids She is unsure why she is taking Seroquel but tolerated the lower dose Troponins negative CTA unremarkable Pacemaker was interrogated today and did require adjustment, per documentation this was discussed with Dr. Amado #History of seizure disorder Reports no seizures in over 40 years Continue home Rashad Did not lose consciousness, does not sound as though she had seizure activity Low threshold for EEG and further work-up if concerns Holding Wellbutrin given it can lower the seizure threshold, patient unsure abo ut the Wellbutrin, will try again tomorrow #Altered mental status Possibly secondary to UTI or medication Will treat UTI with Bactrim and await urine culture, decrease Seroquel to 200 mg given the presyncope and positive orthostats #A. fib She is unable to say if she has A. fib but it is documented as a problem during her previous admission Holding Cardizem given her low blood pressure Continue Suha Heck MD Charges/Coding Visit Charges OBSV E&M: 13671 Subsequent observation care L2
[2022-01-07] MEDS: QUEtiapine 100 MG Tablet 200 MG PO (21:14)
[2022-01-08] VITALS (8 sets, daily range): BP systolic 98–142; BP diastolic 49–78; PULSE 69–72; RESP 16; TEMP 36.6–36.8; O2SAT 94–97
[2022-01-08] MEDS: Acetaminophen 500 MG Tablet 1000 MG PO ×3 (00:16→12:00)
[2022-01-08] MEDS: Levothyroxine 75 MCG Tablet PO (06:05)
[2022-01-08] MEDS: 0.9% Saline Lock 10 ML Syringe IV (06:06)
[2022-01-08 06:54] LABS: Absolute Lymphocyte Count 2.04 X10^3/uL (0.83-4.51); Absolute Neutrophil Count 2.7 X10^3/uL (2.0-7.7); Basophil# 0.04 X10^3/uL; Basophil% 0.7 % (0-1); Eosinophil# 0.12 X10^3/uL; Eosinophils% 2.2 % (0-5); Hematocrit 36.2 % (37-47); Hemoglobin 11.7 g/dL (12.0-15.0); Lymphocyte # 2.04 X10^3/ul (0.83-4.51); Lymphocyte % 37.6 % (19-41); Mean Corp Hgb Conc 32.3 g/dL (32-36); Mean Corpuscular Hgb 31.3 pg (27.0-32.0); Mean Corpuscular Volume 96.8 fL (81-99); Mean Platelet Vol. 9.4 fl (6.2-12.0); Monocyte# 0.51 X10^3/uL; Monocyte% 9.4 % (0-10); NRBC Flagged by Analyzer 0 % (0-5); Neutrophil # 2.69 X10^3/uL (2.7-7.7); Neutrophil % 49.7 % (47-70); Platelet Count 246 K/mm3 (150-450); RBC Distribution Width CV 12.6 % (11.6-14.6); RBC Distribution Width SD 45.3 fl (35.1-43.9); Red Blood Count 3.74 M/mm3 (4.2-5.4); White Blood Count 5.4 K/mm3 (4.4-11.0)
--- NOTE | 2022-01-08 07:12 | PCM.PN.HOSP ---
Subjective Subjective DOS: 01/08/2022 CC: Generalized weakness Reports feeling slightly better today, does not feel that same drunk feeling as yesterday. Did have difficulty working with physical therapy and may need placement. Denies any changes in breathing or chest pain. Denies changes in bowels or bladder. Objective Data Objective Data Vital Signs: Vital Signs Temp Pulse Resp BP Pulse Ox O2 Del Method O2 Flow Rate 97.8 F 70 16 142/78 H 97 Nasal Cannula 2 01/08/22 03:21 01/08/22 03:21 01/08/22 03:21 01/08/22 03:21 01/08/22 03:21 01/08/22 03:22 01/08/22 03:22 Oxygen Flow Rate (L/min) 2 Oxygen Delivery Method Nasal Cannula Weight: 76.6 kg Body Mass Index (BMI) 33.0 Intake & Output: Intake and Output for Last 24 Hours 01/06/22 01/07/22 01/08/22 23:59 23:59 23:59 Intake Total 905 / 1145 2305 / 2305 Output Total 800 / 800 550 / 550 Balance 905 / 945 1505 / 1505 -550 / -550 Lab / Micro Data Result Diagrams: 01/08/22 05:40 01/07/22 06:01 Labs: Laboratory Results - last 24 hr 01/07/22 06:01: Sodium 144, Potassium 3.7, Chloride 112 H, Carbon Dioxide 27.0, Anion Gap 5, BUN 7, Creatinine 0.73, Estim Creat Clear Calc 31.69, Est GFR (MDRD) Af Amer 99, Est GFR (MDRD) Non-Af 82, BUN/Creatinine Ratio 9.6 L, Glucose 79, Calcium 8.4 L, Total Bilirubin 0.30, AST 12 L, ALT 12 L, Alkaline Phosphatase 45, Total Protein 5.7 L, Albumin 2.8 L, Globulin 2.9, Albumin/Globulin Ratio 1.0, TSH 1.35 01/07/22 06:01: Hemoglobin A1c 5.3 01/08/22 05:40: WBC 5.4, RBC 3.74 L, Hgb 11.7 L, Hct 36.2 L, MCV 96.8, MCH 31.3, MCHC 32.3, RDW Std Deviation 45.3 H, RDW Coeff of Daniel 12.6, Plt Count 246, MPV 9.4, Immature Gran % (Auto) 0.400, Neut % (Auto) 49.7, Lymph % (Auto) 37.6, [place] % (Auto) 9.4, Eos % (Auto) 2.2, Baso % (Auto) 0.7, Absolute Neuts (auto) 2.7, Absolute Lymphs (auto) 2.04, Nucleated RBC % 0 Micro: Microbiology 01/06/22 15:20 Urine Catheter - Catheter Urine Culture - Preliminary Streptococcus group B 01/06/22 15:58 Nasal Secretion SARS-CoV-2 & FLU Antigen (Rapid) - Final Radiography Diagnostic Testing: Radiology Impression Echocardiogram 01/06/22 17:23 Interpretation Summary Left ventricular systolic function is normal. The estimated ejection fraction is 65 %. Mild (1+) mitral valve insufficiency. Mild (1+) tricuspid valve insufficiency. Moderate focal aortic valve calcification. Aortic sclerosis, no stenosis. Trivial pulmonic valve insufficiency. Right ventricular systolic pressure estimated to be 25 mmHg. No evidence for diastolic dysfunction. Ordering Physician: Clare Hernandez Referring Physician: Mo Jameson Performed By: Ambrocio Fleming RCS Physical Exam Const alert Constitutional Narrative: Was oriented to the year and location today HEENT normocephalic and head/scalp atraumatic Eyes Eyes Narrative: EOM grossly intact, anicteric Neck no lymphadenopathy and supple Resp normal respiratory effort and clear to auscultation bilaterally Cardio regular rate and regular rhythm GI soft to palpation, non-tender and non-distended Extremity Extremity Narrative: No edema appreciatedes Neuro moves all extremities Neuro Narrative: No overt focal deficits appreciated Psych Psych Narrative: Cooperative but tired, was more oriented however Assessment & Plan Assessment/Plan (1) Generalized weakness: (2) UTI (urinary tract infection): (3) Hypothyroidism: (4) Pre-syncope: PLAN: Plan #Generalized weakness Still feeling weak, worked with physical therapy and there is concern she may need long-term placement Orthostats were positive on admission and her Seroquel was decreased and antihypertensives were held and she was hydrated, they were subsequently - 01/07/2022 Also may be contributed to by UTI, will continue Bactrim and await final culture and sensitivities, did have blood culture drawn on admission as well and that is pending, no growth to date She was living home alone, will likely need a higher level of care on discharge #Presyncope Endorsed feeling lightheaded when going from sitting to standing which exacerbated her feelings of generalized weakness Orthostats + 01/06/2022, improved with decreasing Seroquel and holding antihypertensives Receiving fluids She is unsure why she is taking Seroquel but tolerated the lower dose Troponins negative CTA unremarkable Pacemaker was interrogated 01/07/2022 and did require adjustment, per documentation this was discussed with Dr. Amado #History of seizure disorder Reports no seizures in over 40 years Continue home Rashad Did not lose consciousness, does not sound as though she had seizure activity Low threshold for EEG and further work-up if concerns Holding Wellbutrin given it can lower the seizure threshold, patient unsure about the Wellbutrin, will try again to discuss #Altered mental status Possibly secondary to UTI or medication Will treat UTI with Bactrim and await urine culture, decrease Seroquel to 200 mg given the presyncope and positive orthostats #A. fib She is unable to say if she has A. fib but it is documented as a problem during her previous admission Holding Cardizem given her low blood pressure Continue Suha Heck MD Charges/Coding Visit Charges Inpatient E&M: 32874 Subs Hosp L2
[2022-01-08 07:29] LABS: ALB/GLOB Ratio 0.9 RATIO (0.9-2.4); AST(SGOT) 10 U/L (15-37); Alanine Aminotransfer ALT/SGPT 11 U/L (13-56); Albumin, Serum 2.8 g/dL (3.2-5.0); Alkaline Phosphatase 47 U/L (45-117); Anion Gap 4 (5-15); BUN 7 mg/dL (7-18); Calcium,Total 8.4 mg/dL (8.5-10.1); Chloride 109 mmol/L (98-107); Creatinine, Serum 0.78 mg/dL (0.55-1.02); EST Glomerular Filtration Rate 75 mL/min (>60); Est Glom Filt Rate - Afr Amer 91 mL/min (>60); Estimated Creatinine Clearance 31.69 ml/min; Glucose 74 mg/dL (74-106); Potassium 3.5 mmol/L (3.5-5.1); Protein, Total 5.8 g/dL (6.4-8.2); Sodium Level 144 mmol/L (136-145)
[2022-01-08] MEDS: APIXABAN 5 MG TABLET PO (09:26)
[2022-01-08] MEDS: levETIRAcetam 500 MG Tablet 1000 MG PO (09:26)
[2022-01-08] MEDS: Smz/Tmp Ds Tablet 1 TABLET PO (09:26)
--- NOTE | 2022-01-08 11:02 | CASEMGMT ---
SW met with patient this am. SW asked if she thought any more about going to a SNF for short term rehab. Patient said she wants to go home with her daughter. Patient declined home health as well. SW will continue to follow and see how patient does with therapy today. Reyna Henry INSIDE SALES COORDINATOR ELISABETH
--- NOTE | 2022-01-08 12:54 | DCINST_ITS ---
Discharge Instructions Diet Discharge Diet: No restrictions Activity Discharge Activity: Return to Normal Activity Follow Up Care Test Results: Test results from this visit will be discussed in further detail at your follow- up appointment, if applicable. Discharge Plan Admission Admit Date/Time: 01/06/22 16:50 Primary Reason for Your Visit: Weakness and dizziness Attending Provider: Clare Hernandez Primary Care Provider: Mo Jameson Instructions Patient Instructions: ED Fall Prevention Additional Instructions / Restrictions: *Please take this with you to your next doctors appointment* - Please follow-up with your associate professor of forestry upon discharge, your pace maker was evaluated and did require adjustment - You were noted to have a urinary tract infection on admission. You clinically responded to bactrim and after speaking with the pharmacist, will discharge you on bactrim to complete 3 days. You will have one dose to take tonight and two doses tomorrow -Your Bactrim prescription was called to the pharmacy on file, [facility] at [address] [place] [address] ?Your bupropion was held on admission given your seizure history. Please discuss this with your primary care physician before resuming -Your blood pressure was found to be low this admission so your diltiazem (Cardizem) has been held. It is very important that you follow-up with your primary care physician within 1 week and monitor blood pressure and heart rate. ?Continue your Eliquis and Keppra as well as Synthroid ? Here Seroquel (quetiapine) dose was decreased to 200 mg as it can worsen blood pressure problems, you have done well on this, please continue this dose upon discharge and discuss this with your primary care physician Discharge Orders/Prescriptions Prescriptions: New sulfamethoxazole-trimethoprim 800-160 mg Tablet 1 tab PO BID 2 Days Qty: 3 0RF Rx Instructions: Please take 1 dose tonight and twice tomorrow to complete your treatment. Continued cod liver oil capsule 1 cap PO BID apixaban 5 mg tablet 5 mg PO BID Label Comments: will stop as directed levetiracetam 500 mg tablet 1,500 mg PO BID Label Comments: Take 3 (three) Tablets by mouth two times daily calcium carbonate-vitamin D2 600 mg calcium- 200 unit Tablet 1 tab PO DAILY acetaminophen 650 mg Tablet Extended Release 1,300 mg PO Q8H Mucinex DM 30-600 mg Tablet Extended Release 12 Hr 1 tab PO Q12H cholecalciferol (vitamin D3) [Vitamin D3] 50 mcg (2,000 unit) capsule 2,000 unit PO DAILY Label Comments: TAKE 1 CAPSULE BY MOUTH DAILY levothyroxine 75 mcg tablet 75 mcg PO DAILY Changed quetiapine 400 MG tablet 200 mg PO QHS Qty: 15 0RF Label Comments: mental health Held bupropion HCl 300 mg tablet extended release 24 hr 300 mg PO DAILY Hold Instructions: Resume on 01/15/22. Label Comments: Take 1 Tablet By Oral Route 1 time per day in the morning bupropion HCl 150 mg tablet extended release 24 hr 150 mg PO DAILY Hold Instructions: Resume on 01/15/22. Label Comments: Take 1 Tablet By Oral Route 1 time per day in the morning diltiazem HCl [Cardizem] 30 mg tablet 30 mg PO TID Hold Instructions: Resume on 01/15/22. Referrals / Follow Up: Mo Jameson MD [Primary Care Provider] - Disposition Disposition (needs filled in before D/C Order can be placed): Home, Self Care
--- NOTE | 2022-01-08 14:33 | PHA.DC.MC ---
Pharmacy Service has performed discharge medication reconciliation and counseling for this patient. 1. BACTRIM DS 1T PO BID X 3 DOSES The patient's discharge medication list was reviewed for discrepancies and discrepancies were resolved. Home Medications cod liver oil 1 cap PO BID SUPPLEMENT 08/03/17 apixaban 5 mg tablet 5 mg PO BID BLOOD THINNER 12/20/18 diltiazem HCl 30 mg tablet (Cardizem) 30 mg PO TID heart 06/14/20 levothyroxine 75 mcg tablet 75 mcg PO DAILY thyroid 06/14/20 bupropion HCl 150 mg 24 hr tablet, extended release 150 mg PO DAILY depression 09/19/20 bupropion HCl 300 mg 24 hr tablet, extended release 300 mg PO DAILY depression 09/19/20 calcium carb-ergocalciferol (vit D2) 600 mg calcium-200 unit tablet 1 tab PO DAILY supplement 09/19/20 levetiracetam 500 mg tablet 1,500 mg PO BID seizures 09/19/20 acetaminophen 650 mg tablet,extended release 1,300 mg PO Q8H pain 01/06/22 cholecalciferol (vitamin D3) 50 mcg (2,000 unit) capsule (Vitamin D3) 2,000 unit PO DAILY supplement 01/06/22 dextromethorphan-guaifenesin 30 mg-600 mg tablet extended [id number] hr (Mucinex DM) 1 tab PO Q12H 01/06/22 quetiapine 400 mg tablet 200 mg PO QHS SLEEP #15 tabs 01/08/22 sulfamethoxazole 800 mg-trimethoprim 160 mg tablet 1 tab PO BID 2 days #3 tabs 01/08/22 The patient was counseled on the following discharge medications and changes in medications for homegoing were reviewed. The Reason for Use, instructions for use, and potential side effects were reviewed for all new medications. The patient's questions regarding all of their medications were answered. The patient was able to verbally demonstrate an understanding of their discharge medications.
--- NOTE | 2022-01-08 15:47 | DS.PCM_ITS ---
Providers Date of Admission: 01/06/22 Date of Discharge: 01/08/22 Primary Care Physician: Dr. Mo Jameson MD Reason For Visit: generalized weakness and slurred speech Diagnosis Discharge Diagnosis (1) Generalized weakness: Status: Acute Code(s): R53.1 - Weakness (2) UTI (urinary tract infection): Status: Acute Code(s): N39.0 - Urinary tract infection, site not specified (3) Hypothyroidism: Status: Chronic Code(s): E03.9 - Hypothyroidism, unspecified (4) Pre-syncope: Status: Acute Code(s): R55 - Syncope and collapse Plan #Generalized weakness #Presyncope #History of seizure disorder #Altered mental status #A. fib Medications at Discharge Home Medications cod liver oil 1 cap PO BID SUPPLEMENT 08/03/17 apixaban 5 mg tablet 5 mg PO BID BLOOD THINNER 12/20/18 diltiazem HCl 30 mg tablet (Cardizem) 30 mg PO TID heart 06/14/20 levothyroxine 75 mcg tablet 75 mcg PO DAILY thyroid 06/14/20 bupropion HCl 150 mg 24 hr tablet, extended release 150 mg PO DAILY depression 09/19/20 bupropion HCl 300 mg 24 hr tablet, extended release 300 mg PO DAILY depression 09/19/20 calcium carb-ergocalciferol (vit D2) 600 mg calcium-200 unit tablet 1 tab PO DAILY supplement 09/19/20 levetiracetam 500 mg tablet 1,500 mg PO BID seizures 09/19/20 acetaminophen 650 mg tablet,extended release 1,300 mg PO Q8H pain 01/06/22 cholecalciferol (vitamin D3) 50 mcg (2,000 unit) capsule (Vitamin D3) 2,000 unit PO DAILY supplement 01/06/22 dextromethorphan-guaifenesin 30 mg-600 mg tablet extended [id number] hr (Mucinex DM) 1 tab PO Q12H 01/06/22 quetiapine 400 mg tablet 200 mg PO QHS SLEEP #15 tabs 01/08/22 sulfamethoxazole 800 mg-trimethoprim 160 mg tablet 1 tab PO BID 2 days #3 tabs 01/08/22 Hospital Course Summary of Care Provided Minutes Spent on Discharge: 31 Hospital Course: Ms. Sharpe is an 81-year-old female with a history of L1 compression fracture, complete heart block status post permanent pacemaker, seizure disorder chronically on Keppra, and A. phyllis on Eliquis who presented to [facility] 01-06-2022 with generalized weakness and difficulty with her speech. Her daughter spoke with her at 9 in the morning and felt she was doing fine and then when she went to her house at noon she noted that her mother was weak and had difficulty talking. Per Alda she reports that she did started not feeling well at 9 AM and had been intermittently dizzy and that progressed to feeling weak all over and having difficulty getting her words out. In the ED she was noted to have UA concerning for UTI and given Bactrim. She was also started on fluids and chest x-ray as well as head and neck CTA were performed all of which were unremarkable. Glucose was 146. On exam she admitted continued to feel weak and was admitted. PT/OT consulted. She was found to be orthostatic positive, her blood pressure medication was held and her Seroquel was decreased to 200 mg due to potential contributing factor she was also given fluids. The next morning orthostats negative. On 01/07/2022 she had difficulty working with PT and was still somewhat confused and at the time it was felt she might need placement but she was refusing. 01/08/2022 her mental status was significantly improved and she worked with physical therapy and did well. Plans to go home and stay with daughter after hospitalization. Urine culture did grow strep agalactiae and sensitivities reviewed. She did clinically improve on Bactrim, did discuss with pharmacy and deemed finishing course of Bactrim was reasonable. No systemic signs or symptoms of infection. She will be sent out with a dose this evening and 2 doses tomorrow. Additionally her Wellbutrin was held on admission because of her seizure history and her inability to discuss risks versus benefits initially with her confusion and it was advised she discuss this with her outpatient physician and continue her Keppra. Additionally she was discharged on the lower dose of Seroquel and her Cardizem was held as her blood pressure was improved but still somewhat low. Close follow-up with primary care physician strongly advised. Spoke with both Alda and her daughter at bedside. Discharge home with daughter in stable condition. Of note urine tox positive for MDMA, most likely due to her psychiatric medications leading to a false positive. Physical Exam Const alert Constitutional Narrative: Was oriented to the year and location today HEENT normocephalic and head/scalp atraumatic Eyes Eyes Narrative: EOM grossly intact, anicteric Neck no lymphadenopathy and supple Resp normal respiratory effort and clear to auscultation bilaterally Cardio regular rate and regular rhythm GI soft to palpation, non-tender and non-distended Extremity Extremity Narrative: No edema appreciatedes Neuro moves all extremities Neuro Narrative: No overt focal deficits appreciated Psych Psych Narrative: Cooperative but tired, was more oriented however Weight / BMI Weight Weight: 76.6 kg Body Mass Index (BMI) 33.0 ABG / Lab / Microbiology Data Result Diagrams: 01/08/22 05:40 01/08/22 05:40 Laboratory: Laboratory Results - last 24 hr 01/08/22 05:40: WBC 5.4, RBC 3.74 L, Hgb 11.7 L, Hct 36.2 L, MCV 96.8, MCH 31.3, MCHC 32.3, RDW Std Deviation 45.3 H, RDW Coeff of Daniel 12.6, Plt Count 246, MPV 9.4, Immature Gran % (Auto) 0.400, Neut % (Auto) 49.7, Lymph % (Auto) 37.6, Campbell % (Auto) 9.4, Eos % (Auto) 2.2, Baso % (Auto) 0.7, Absolute Neuts (auto) 2.7, Absolute Lymphs (auto) 2.04, Nucleated RBC % 0 01/08/22 05:40: Sodium 144, Potassium 3.5, Chloride 109 H, Carbon Dioxide 31.0, Anion Gap 4 L, BUN 7, Creatinine 0.78, Estim Creat Clear Calc 31.69, Est GFR (MDRD) Af Amer 91, Est GFR (MDRD) Non-Af 75, BUN/Creatinine Ratio 9.0 L, Glucose 74, Calcium 8.4 L, Total Bilirubin 0.30, AST 10 L, ALT 11 L, Alkaline Phosphatase 47, Total Protein 5.8 L, Albumin 2.8 L, Globulin 3.0, Albumin/Globulin Ratio 0.9 Microbiology: Microbiology 01/06/22 15:20 Urine Catheter - Catheter Urine Culture - Final Streptococcus agalactiae (B) 01/06/22 14:15 Blood Culture (Wb) - Right Forearm Blood Culture - Prelimin zach No growth in 48 hours. 01/06/22 15:58 Nasal Secretion SARS-CoV-2 & FLU Antigen (Rapid) - Final D/C Instructions Discharge Diet: No restrictions Meaningful Use Info Meaningful Use Diagnoses (Choose all that apply): None applicable Discharge Plan Admission Admit Date/Time: 01/06/22 16:50 Primary Reason for Your Visit: Weakness and dizziness Attending Provider: Clare Hernandez Primary Care Provider: Mo Jameson Instructions Patient Instructions: ED Fall Prevention Additional Instructions / Restrictions: *Please take this with you to your next doctors appointment* - Please follow-up with your art therapist upon discharge, your pace maker was evaluated and did require adjustment - You were noted to have a urinary tract infection on admission. You clinically responded to bactrim and after speaking with the pharmacist, will discharge you on bactrim to complete 3 days. You will have one dose to take tonight and two doses tomorrow -Your Bactrim prescription was called to the pharmacy on file, [facility] at [address] [place] [address] ?Your bupropion was held on admission given your seizure history. Please d iscuss this with your primary care physician before resuming -Your blood pressure was found to be low this admission so your diltiazem (Cardizem) has been held. It is very important that you follow-up with your primary care physician within 1 week and monitor blood pressure and heart rate. ?Continue your Eliquis and Keppra as well as Synthroid ? Here Seroquel (quetiapine) dose was decreased to 200 mg as it can worsen blood pressure problems, you have done well on this, please continue this dose upon discharge and discuss this with your primary care physician Discharge Orders/Prescriptions Prescriptions: New sulfamethoxazole-trimethoprim 800-160 mg Tablet 1 tab PO BID 2 Days Qty: 3 0RF Rx Instructions: Please take 1 dose tonight and twice tomorrow to complete your treatment. Continued cod liver oil capsule 1 cap PO BID apixaban 5 mg tablet 5 mg PO BID Label Comments: will stop as directed levetiracetam 500 mg tablet 1,500 mg PO BID Label Comments: Take 3 (three) Tablets by mouth two times daily calcium carbonate-vitamin D2 600 mg calcium- 200 unit Tablet 1 tab PO DAILY acetaminophen 650 mg Tablet Extended Release 1,300 mg PO Q8H Mucinex DM 30-600 mg Tablet Extended Release 12 Hr 1 tab PO Q12H cholecalciferol (vitamin D3) [Vitamin D3] 50 mcg (2,000 unit) capsule 2,000 unit PO DAILY Label Comments: TAKE 1 CAPSULE BY MOUTH DAILY levothyroxine 75 mcg tablet 75 mcg PO DAILY Changed quetiapine 400 MG tablet 200 mg PO QHS Qty: 15 0RF Label Comments: mental health Held bupropion HCl 300 mg tablet extended release 24 hr 300 mg PO DAILY Hold Instructions: Resume on 01/15/22. Label Comments: Take 1 Tablet By Oral Route 1 time per day in the morning bupropion HCl 150 mg tablet extended release 24 hr 150 mg PO DAILY Hold Instructions: Resume on 01/15/22. Label Comments: Take 1 Tablet By Oral Route 1 time per day in the morning diltiazem HCl [Cardizem] 30 mg tablet 30 mg PO TID Hold Instructions: Resume on 01/15/22. Referrals / Follow Up: Mo Jameson MD [Primary Care Provider] - Disposition Disposition (needs filled in before D/C Order can be placed): Home, Self Care Charges/Coding Visit Charges Inpatient E&M: 49771 Disch Hosp
== END 2022-01-08 14:41 | disposition home or self-care (01) | DRG 948 ==
LOC: ED 16:06 → PCU 01-07 09:33
PROVIDERS: Admitting Provider Internal Medicine; Emergency Provider Emergency Medicine; PCP Family Medicine; Visit Provider Internal Medicine
DX: R53.1 Weakness (principal); N39.0 Urinary tract infection, site not specified; E03.9 Hypothyroidism, unspecified; I48.91 Unspecified atrial fibrillation; G40.909 Epilepsy, unspecified, not intractable, without status epilepticus; E78.5 Hyperlipidemia, unspecified; R55 Syncope and collapse; G89.29 Other chronic pain; R47.81 Slurred speech; Z79.01 Long term (current) use of anticoagulants
CPT/HCPCS: 36415; 70496; 70498; 71045; 80048; 80053; 80076; 80307; 81001; 83036; 83605; 84443; 84484; 85025; 85610; 85730; 87040; 87077; 87086; 87088; 87186; 87428; 93005; 93306; 97116; 97162; 97166; 97530; 97535; 99285; G0008; J7030; Q9957; 90686; A4216; C8929; J2405

== ENCOUNTER → 2022-05-14 | Outpatient (CLI) | payer MEDICARE, SELFPAY ==
--- NOTE | 2022-05-14 14:33 | BI_ITS ---
MAMMOGRAPHY - UNILATERAL SCREENING: RIGHT BREAST REASON FOR EXAM: Female, 82 years old. Routine annual screening examination (unilateral). PERTINENT HISTORY: Personal history of breast cancer. Prior left mastectomy. Daughter with breast cancer. TECHNIQUE: Digital unilateral breast marietta (3D mammographic acquisition) in the CC and MLO projections. 2-D mediolateral oblique (MLO) and craniocaudad (CC) views of both breasts were obtained. CAD: Full Field Digital Mammography with Computer Added Detection was performed. COMPARISON: Comparison is made with prior study of 07/21/2016 and 08/03/2013. FINDINGS: Breast Composition: The breasts are almost entirely fatty. There are no dominant masses or suspicious calcifications. A battery pack from a pacemaker device is once again seen in the right axillary region. No other significant abnormalities are identified. There has been no significant change since the prior study. BI/SCREEN MAMM (CAD) W/MARIETTA UNI R IMPRESSION: Stable unilateral screening mammogram. Yearly follow-up mammogram recommended. (A) ASSESSMENT CATEGORY: BIRADS Category 2: Benign. A letter regarding these results will be sent to the patient by the facility within 30 days. Approximately 10% of breast cancers are not detected by mammography. A normal mammogram should not delay biopsy of a clinically suspicious abnormality. [id number] Electronically Signed: Ramón Hyde MD at 15:12 EST ,
== END | disposition home or self-care (01) ==
LOC: OPBI 14:30
PROVIDERS: PCP Family Medicine; Visit Provider Family Medicine
DX: Z12.31 Encounter for screening mammogram for malignant neoplasm of breast (principal)
CPT/HCPCS: 77063; 77067

== ENCOUNTER → 2022-10-13 | Outpatient (CLI) | payer MEDICARE, SELFPAY ==
--- NOTE | 2022-10-13 13:05 | RAD_ITS ---
INDICATION: PAIN OF LEFT UPPER EXTREMITY EXAMINATION/TECHNIQUE: X-RAY - XR Spine Cervical 6 or More Views COMPARISON: Cervical spine CT 06/05/2020. FINDINGS: 7 views of the cervical spine, to include flexion and extension views. BONES: Normal anatomic alignment without evidence of fracture or subluxation. No spondylolisthesis or disc space widening with flexion and extension maneuvers. No concerning bony lesion or abnormal sclerosis to suggest lesion. DISCS/JOINTS: Bilateral upper cervical spine moderate to severe neuroforaminal narrowing. SOFT TISSUES: Unremarkable. RAD/Cerv Spine Obl/Flex/Ext Comp IMPRESSION: Neuroforaminal narrowing. Degenerative change of the cervical spine. No spondylolisthesis or disc space widening with flexion and extension maneuvers. If there is persistent clinical concern for spine fracture and this is a trauma patient, recommend dedicated cervical spine CT. Electronically Signed: Dash Chau MD at 1:57 EDT ,
== END | disposition home or self-care (01) ==
PROVIDERS: PCP Family Medicine; Referring Provider Family Medicine; Visit Provider Family Medicine
DX: M79.602 Pain in left arm (principal)
CPT/HCPCS: 72052

== ENCOUNTER 2022-11-20 15:00 | Outpatient (RCR) | payer MEDICARE, SELFPAY ==
--- NOTE | 2022-10-20 13:51 | HP.PTEVAL ---
Patient's Visit Information Visit Information Visit Information: DEVORA CHILDERS is a 82 year old F referred to Physical Therapy by Dr. Mo Jameson MD with a diagnosis of Cervical with Radiating Pain. Date of Evaluation: 10/20/22 Physical Therapist: Trena Frye DPT Visit Plan Frequency: 2x /Week Duration: 4 Weeks Plan: Focus on scapular strength/stabilization and postural strengthening- diminished radicular s/s HEP Given IE: Postural education, scapular retractions, chin tucks PACEMAKER Subjective Subjective: Patient reports that she is having pain in her left arm- the pain started in her arm from her shoulder to her neck. She got into see Dr. Jameson and she got into have x-rays. He also sent in a medication for Oxy and she plans to pick it up today. Insidious onset- no trauma. She has been dealing with this for awhile. She is not very active when it is flared up. She only goes out on - she is fully with ADL's. But the left arm is what really bothers her. She has pain from the elbow to the neck. Describes the pain as severe pain- No N/T in the hand. Agg: nothing in particular Eases: nothing she can think of. Worst: 10/10 Best: 4/10. No clinical informatics strategist strength issues. No blurred visions, dizziness or OLMOS. Cervical Spine X-ray: Neuroforaminal narrowing.-Degenerative change of the cervical spine. No spondylolisthesis or disc-space widening with flexion and extension maneuvers. Sleep: disturbed- side sleeper. PMHX/Meds: see chart Objective Objective: Objective: Posture: severed FH, RS- can correct with tactile and verbal cues but does not maintain Gait: decreased arm swing and trunk rotation- slow marko ROM: Cervical: Flexion: chin to chest, Extn: diminished by 50%, SB: diminished by 75% with pain, Rotation: diminished by 50% more pain with right rotation Shoulder: WFL but does report pain at end range flexion and abduction- slow movement Palpation: tender throughout medial border of the scapula, paraspinals of the cervical spine, upper trap to the AC joint and down to the elbow both bicep and tricep Strength: Scap: poor, Cervical Isometric: 4-/5 with pain, Shoulder: Isometric at neutral: 4+/5 with discomfort in all directions, Elbow: 4/5 without pain, Spring Former Hand: Left: 20 lbs, Right: 40 (right hand dominate) Special Test: Spurlings: positive, Distraction: no change in s/s of the left UE Balance/Special Test Scores Oswestry Neck Score: 12 Goals Goal 1:: Patient will be I with HEP and progression Goal Time Frame: 4-6 Weeks Goal 2:: Patient will maintain proper posture t/o tx session to demo increased scap s/s Goal Time Frame: 4-6 Weeks Goal 3:: Patient will report no radicular s/s for 1 week Goal Time Frame: 4-6 Weeks Goal 4:: Patient will report 80% improvement Goal Time Frame: 4-6 Weeks Rehabilitation Potential Physical Therapy Diagnosis: Patient presents with hypomobility- she has decreased core and scapular strength/stabilization, flex, ROM and muscular endurance leading to poor posture and increased pain with ADL's. Rehabilitation Potential: Fair Anticipated Interventions Patient/Client Instruction: Educate patient on: Benefits of Fitness Program Therapeutic Exercise to Include: Strength training, Endurance training, Body mechanics, Postural training, Flexibilty training, Neuromotor development, Passive ROM, Active ROM, Dynamic Lumbar Stabilization and Scapular Strength/Stabilization For the Purpose of:: To improve muscle performance and motor function TENS: No (PACEMAKER) Cryotherapy (ice pack, ice massage): Yes Thermo therapy (hot pack): Yes Ultrasound (thermal/non thermal): No (PACEMAKER) Text: Thank you for the opportunity to evaluate your patient. For Medicare and Medicare HMO plans, please review the plan of care and approve it. It will need to be FAXED BACK to us at [phone] for Medicare purposes. For Medicare only, by signing this I certify the plan of care. Please let me know if there are questions or concerns regarding this plan of care. Physician Signature: Date:
--- NOTE | 2022-11-20 15:48 | HP.PTDCSUM_ITS ---
Discharge Summary D/C summary: It has been my pleasure to treat DEVORA CHILDERS referred by Dr. Mo Jameson MD, with the diagnosis of Cervical with Radiating Pain for a total of 9 visit(s). Discharge Date: Please see the following information for a summary of their discharge status. Subjective Subjective: Patient reports that she is doing the exercises at home and she feels that she got better. She is having less pain- if she splits up her chores it seems to works better that way. Pain R chest: Pain Intensity (Out of 10): 5 neck: Pain Intensity (Out of 10): 4 Overall Improvement % Improvement: 95 Objective Objective/Function: Posture: fair throughout Gait: no deviation noted ROM: Cervical: WFL in all planes Shoulder: WFL in all planes Palpation: not tender to touch Strength: Scap: fair, Cervical Isometric: 4/5 , Shoulder: Isometric at neutral: 4+/5 , Elbow: 4/5 without pain, Auxiliary Power Equipment Operator: Left: 20 lbs, Right: 40 (right hand dominate) Special Test: Spurlings: positive, Distraction: no change in s/s of the left UE Goals Goal 1:: Patient will be I with HEP and progression Goal Progress: Goal Met Goal 2:: Patient will maintain proper posture t/o tx session to demo increased scap s/s Goal Progress: Goal Met Goal 3:: Patient will report no radicular s/s for 1 week Goal Progress: Goal Met Goal 4:: Patient will report 80% improvement Goal Progress: Goal Met Plan Plan: 11/20/22: Discharge to I HEP Focus on scapular strength/stabilization and postural strengthening- diminished radicular s/s HEP Given IE: Postural education, scapular retractions, chin tucks PACEMAKER D/C Information d/c sentence: If there are questions or concerns regarding this patient's physical therapy, please feel free to call me at [phone]. Thank you for the referral of this patient. Sincerely, Trena Frye, DPT Balance/Gait/Functional tests Balance/Special Test Scores Oswestry Neck Score: 15 Improvement % Improvement: 95
== END 2022-11-20 19:00 | disposition home or self-care (01) ==
LOC: PT 15:00
PROVIDERS: PCP Family Medicine; Referring Provider Family Medicine; Visit Provider Family Medicine
DX: M25.562 Pain in left knee (principal); M79.602 Pain in left arm; M79.10 Myalgia, unspecified site
CPT/HCPCS: 97110; 97162; 97164

== ENCOUNTER → 2023-06-04 | Outpatient (CLI) | payer MEDICARE, SELFPAY ==
[2023-06-04 14:10] LABS: Mucous, Urine 0 SEEN /hpf (<or=2+)
[2023-06-04 17:42] LABS: Absolute Neutrophil Count 2.3 X10^3/uL (2.0-7.7); Basophil# 0.02 X10^3/uL; Basophil% 0.4 % (0-1); Color, Urine Yellow (Yellow); Eosinophil# 0.04 X10^3/uL; Eosinophils% 0.9 % (0-5); Glucose, Dipstick Normal (Normal); Hematocrit 37.6 % (37-47); Hemoglobin 12.1 g/dL (12.0-15.0); Ketone-Dipstick 5 mg/dl (Negative); Leukocyte Esterase-Dipstick 500 /ul (Negative); Lymphocyte % 39.2 % (19-41); Mean Corp Hgb Conc 32.2 g/dL (32-36); Mean Corpuscular Hgb 32.2 pg (27.0-32.0); Mean Platelet Vol. 9.2 fl (6.2-12.0); Monocyte# 0.46 X10^3/uL; NRBC Flagged by Analyzer 0 % (0-5); Neutrophil # 2.25 X10^3/uL (2.7-7.7); Neutrophil % 49.1 % (47-70); Nitrite-Dipstick Positive (Negative); Occult Blood-Urine 25 /ul (Negative); Platelet Count 272 K/mm3 (150-450); Protein-Dipstick 30 mg/dl (Negative); RBC Distribution Width CV 12.5 % (11.6-14.6); RBC Distribution Width SD 45.8 fl (35.1-43.9); Red Blood Count 3.76 M/mm3 (4.2-5.4); Urine Bilirubin Dipstick Negative (Negative); Urine Clarity Sl. Cloudy (Clear); Urine Urobilinogen Normal (Normal); White Blood Count 4.6 K/mm3 (4.4-11.0)
[2023-06-04 17:51] LABS: Red Blood Cells-Urine 0-5 SEEN /hpf (0-5); Squamous Epithelial Cells - UA 0-5 SEEN /hpf (5-10); White Blood Cells 25-50 SEEN /hpf (0-5)
[2023-06-04 17:52] LABS: Bacteria RARE /hpf (None Seen)
[2023-06-04 18:25] LABS: AST(SGOT) 16 U/L (15-37); Alanine Aminotransfer ALT/SGPT 14 U/L (13-56); Albumin, Serum 3.2 g/dL (3.2-5.0); Alkaline Phosphatase 39 U/L (45-117); Anion Gap 8 (5-15); BUN 10 mg/dL (7-18); BUN/Creat Ratio 11.4 RATIO (10-20); Chloride 108 mmol/L (98-107); Creatinine, Serum 0.87 mg/dL (0.55-1.02); EST Glomerular Filtration Rate 66 mL/min (>60); Est Glom Filt Rate - Afr Amer 80 mL/min (>60); Globulin 3.2 g/dL (2.2-4.2); Glucose 92 mg/dL (74-106); Potassium 3.7 mmol/L (3.5-5.1); Protein, Total 6.4 g/dL (6.4-8.2); Sodium Level 144 mmol/L (136-145); T4 Free Direct 0.86 ng/dL (0.76-1.46); Thyroid Stim Hormone (TSH) 1.31 uIU/mL (0.358-3.74)
[2023-06-04 18:31] LABS: Vitamin D,25 Hydroxy 48.9 ng/mL
== END | disposition home or self-care (01) ==
LOC: MFPLAB 14:07
PROVIDERS: PCP Family Medicine; Visit Provider Family Medicine
DX: R30.0 Dysuria (principal); G40.309 Generalized idiopathic epilepsy and epileptic syndromes, not intractable, without status epilepticus; M81.0 Age-related osteoporosis without current pathological fracture; E03.9 Hypothyroidism, unspecified; D51.0 Vitamin B12 deficiency anemia due to intrinsic factor deficiency
CPT/HCPCS: 36415; 80053; 81001; 82306; 82746; 84439; 84443; 85025; 87077; 87086; 87088; 87186

== ENCOUNTER → 2023-12-15 | Outpatient (CLI) | payer MEDICARE, SELFPAY ==
--- NOTE | 2023-12-15 10:52 | RAD_ITS ---
EXAM: XR CHEST, 2 VIEWS CLINICAL INDICATION: cough TECHNIQUE: Frontal and lateral views of the chest. COMPARISON: January 06, 2022, February 23, 2021, June 05, 2020 FINDINGS: LUNGS AND PLEURAL SPACES: Unremarkable. No pneumothorax. No infiltrates or effusions. HEART: Unremarkable. Cardiac silhouette not enlarged. MEDIASTINUM: Central airways and mediastinal contour are unremarkable. BONES/JOINTS: There is dense material or sclerosis at the opposing endplates at the thoracolumbar region, possibly some vertebroplasty or other surgical material, suggestion of similar sclerosis or material on prior exam, not well seen. SOFT TISSUES: Unremarkable. VASCULATURE: Mildly increased bulging contour of the margin of the descending thoracic aorta on the frontal view compared to 2020. TUBES, LINES AND DEVICES: Bilateral subclavian pacemaker leads and basilar arteries appears stable 2020. RAD/Chest PA and Lateral IMPRESSION: 1. No significant infiltrates or effusions. 2. Increased prominent and tortuous contour of the margin of descending thoracic aorta compared to 2020 and 2021. RECOMMENDATIONS: Consider enhanced chest CT if there is clinical suspicion of aortic aneurysm or dissection. Electronically Signed: Alma Rosa Krishnamurthy MD at 2:03 EDT ,
[2023-12-15 15:19] LABS: Absolute Lymphocyte Count 2.14 X10^3/uL (0.83-4.51); Absolute Neutrophil Count 1.9 X10^3/uL (2.0-7.7); Basophil# 0.03 X10^3/uL; Basophil% 0.6 % (0-1); Eosinophil# 0.03 X10^3/uL; Eosinophils% 0.6 % (0-5); Hematocrit 39.1 % (37-47); Hemoglobin 12.5 g/dL (12.0-15.0); Lymphocyte # 2.14 X10^3/ul (0.83-4.51); Lymphocyte % 44.4 % (19-41); Mean Corpuscular Hgb 30.3 pg (27.0-32.0); Mean Corpuscular Volume 94.7 fL (81-99); Mean Platelet Vol. 9.6 fl (6.2-12.0); Monocyte# 0.74 X10^3/uL; Monocyte% 15.4 % (0-10); NRBC Flagged by Analyzer 0 % (0-5); Neutrophil # 1.87 X10^3/uL (2.7-7.7); Neutrophil % 38.8 % (47-70); Platelet Count 264 K/mm3 (150-450); RBC Distribution Width CV 13.6 % (11.6-14.6); RBC Distribution Width SD 47.3 fl (35.1-43.9); Red Blood Count 4.13 M/mm3 (4.2-5.4); White Blood Count 4.8 K/mm3 (4.4-11.0)
[2023-12-15 15:50] LABS: ALB/GLOB Ratio 0.9 RATIO (0.9-2.4); AST(SGOT) 20 U/L (15-37); Alanine Aminotransfer ALT/SGPT 15 U/L (13-56); Albumin, Serum 3.4 g/dL (3.2-5.0); Alkaline Phosphatase 56 U/L (45-117); Anion Gap 8 (5-15); BUN 15 mg/dL (7-18); BUN/Creat Ratio 12.8 RATIO (10-20); Chloride 105 mmol/L (98-107); Creatinine, Serum 1.17 mg/dL (0.55-1.02); EST Glomerular Filtration Rate 47 mL/min (>60); Est Glom Filt Rate - Afr Amer 57 mL/min (>60); Globulin 3.7 g/dL (2.2-4.2); Glucose 103 mg/dL (74-106); Potassium 3.2 mmol/L (3.5-5.1); Protein, Total 7.1 g/dL (6.4-8.2); Rheumatoid Factor < 10.0 IU/mL (<15); Sodium Level 140 mmol/L (136-145)
[2023-12-19 00:07] LABS: Alternaria tenuis <0.10 kU/L (Class 0); Ash, White <0.10 kU/L (Class 0); Aspergillus fumigatus <0.10 kU/L (Class 0); Bermuda Grass <0.10 kU/L (Class 0); Birch <0.10 kU/L (Class 0); Black Walnut <0.10 kU/L (Class 0); Cat Hair / Dander,Stand <0.10 kU/L (Class 0); Cedar, Mountain <0.10 kU/L (Class 0); Cladosporium herbarum <0.10 kU/L (Class 0); Cockroach, American <0.10 kU/L (Class 0); Cottonwood <0.10 kU/L (Class 0); D farinae Mite <0.10 kU/L (Class 0); D pteronyssinus <0.10 kU/L (Class 0); Dog Epithelia <0.10 kU/L (Class 0); Elm, American White <0.10 kU/L (Class 0); Immunoglobulin E 9 IU/mL (6-495); Maple/Box Elder <0.10 kU/L (Class 0); Mouse Urine <0.10 kU/L (Class 0); Mulberry, White <0.10 kU/L (Class 0); Oak, White <0.10 kU/L (Class 0); Pecan <0.10 kU/L (Class 0); Penicillium Notatum <0.10 kU/L (Class 0); Pigweed, Rough <0.10 kU/L (Class 0); Ragweed, Short/Common <0.10 kU/L (Class 0); Russian Thistle <0.10 kU/L (Class 0); Sheep Sorrel <0.10 kU/L (Class 0); Sycamore, American <0.10 kU/L (Class 0); Timothy Grass <0.10 kU/L (Class 0)
== END | disposition home or self-care (01) ==
LOC: MTLAB 10:48
PROVIDERS: PCP Family Medicine; Referring Provider Family Medicine; Visit Provider Family Medicine
DX: R05.9 Cough, unspecified (principal); J01.90 Acute sinusitis, unspecified
CPT/HCPCS: 36415; 71046; 80053; 82785; 85025; 86003; 86140; 86431

== ENCOUNTER → 2024-02-09 | Outpatient (CLI) | payer MEDICARE, SELFPAY ==
[2024-02-09 12:16] LABS: Hematocrit 37.8 % (37-47); Hemoglobin 11.9 g/dL (12.0-15.0); Mean Corp Hgb Conc 31.5 g/dL (32-36); Mean Corpuscular Hgb 30.1 pg (27.0-32.0); Mean Corpuscular Volume 95.5 fL (81-99); Mean Platelet Vol. 9.4 fl (6.2-12.0); Platelet Count 280 K/mm3 (150-450); RBC Distribution Width CV 13.5 % (11.6-14.6); RBC Distribution Width SD 47.7 fl (35.1-43.9); Red Blood Count 3.96 M/mm3 (4.2-5.4); White Blood Count 5.4 K/mm3 (4.4-11.0)
[2024-02-09 12:40] LABS: AST(SGOT) 14 U/L (15-37); Alanine Aminotransfer ALT/SGPT 9 U/L (13-56); Albumin, Serum 3.5 g/dL (3.2-5.0); Alkaline Phosphatase 57 U/L (45-117); Anion Gap 3 (5-15); BUN 17 mg/dL (7-18); BUN/Creat Ratio 18.8 RATIO (10-20); Calcium,Total 9.4 mg/dL (8.5-10.1); Chloride 108 mmol/L (98-107); EST Glomerular Filtration Rate 63 mL/min (>60); Est Glom Filt Rate - Afr Amer 77 mL/min (>60); Globulin 3.5 g/dL (2.2-4.2); Glucose 111 mg/dL (74-106); Potassium 3.6 mmol/L (3.5-5.1); Sodium Level 142 mmol/L (136-145)
[2024-02-09 12:58] LABS: Digoxin Level 1.18 ng/mL (0.80-2.00)
== END | disposition home or self-care (01) ==
LOC: MTLAB 10:35
PROVIDERS: PCP Family Medicine; Referring Provider Family Medicine; Visit Provider Family Medicine
DX: I95.1 Orthostatic hypotension (principal)
CPT/HCPCS: 80053; 80162; 85027

== ENCOUNTER → 2024-05-05 | Outpatient (CLI) | payer MEDICARE, SELFPAY ==
[2024-05-05 15:18] LABS: Absolute Neutrophil Count 5.8 X10^3/uL (2.0-7.7); Basophil# 0.06 X10^3/uL; Basophil% 0.8 % (0-1); Eosinophil# 0.05 X10^3/uL; Eosinophils% 0.6 % (0-5); Hematocrit 37.9 % (37-47); Hemoglobin 11.8 g/dL (12.0-15.0); Lymphocyte % 16.3 % (19-41); Mean Corp Hgb Conc 31.1 g/dL (32-36); Mean Corpuscular Hgb 29.3 pg (27.0-32.0); Monocyte# 0.77 X10^3/uL; Monocyte% 9.6 % (0-10); NRBC Flagged by Analyzer 0 % (0-5); Neutrophil # 5.77 X10^3/uL (2.7-7.7); Neutrophil % 72.3 % (47-70); Platelet Count 261 K/mm3 (150-450); RBC Distribution Width CV 13.4 % (11.6-14.6); RBC Distribution Width SD 45.8 fl (35.1-43.9); Red Blood Count 4.03 M/mm3 (4.2-5.4)
[2024-05-05 16:10] LABS: ALB/GLOB Ratio 0.9 RATIO (0.9-2.4); AST(SGOT) 14 U/L (15-37); Alanine Aminotransfer ALT/SGPT 14 U/L (13-56); Albumin, Serum 3.1 g/dL (3.2-5.0); Alkaline Phosphatase 51 U/L (45-117); Anion Gap 6 (5-15); BUN 16 mg/dL (7-18); BUN/Creat Ratio 18.7 RATIO (10-20); Calcium,Total 9.1 mg/dL (8.5-10.1); Chloride 106 mmol/L (98-107); Creatinine, Serum 0.86 mg/dL (0.55-1.02); EST Glomerular Filtration Rate 67 mL/min (>60); Est Glom Filt Rate - Afr Amer 81 mL/min (>60); Globulin 3.6 g/dL (2.2-4.2); Glucose 124 mg/dL (74-106); Potassium 3.8 mmol/L (3.5-5.1); Protein, Total 6.7 g/dL (6.4-8.2); Sodium Level 142 mmol/L (136-145); Vitamin B12 > 2000 pg/mL (211-911)
== END | disposition home or self-care (01) ==
LOC: MTLAB 11:43
PROVIDERS: PCP Family Medicine; Referring Provider Family Medicine; Visit Provider Family Medicine
DX: G40.309 Generalized idiopathic epilepsy and epileptic syndromes, not intractable, without status epilepticus (principal); F33.2 Major depressive disorder, recurrent severe without psychotic features; G47.9 Sleep disorder, unspecified
CPT/HCPCS: 36415; 80053; 82607; 82746; 84443; 85025